=== PATIENT | male | born 1945 | race Caucasian/White ===

== ENCOUNTER → 2017-04-16 | Outpatient (CLI) | payer OTHER ==
[~2017-04-16] MED LIST: ALLO300T2 PO; AMLO10TA2 PO; CALC1TAB42 PO; CHLO4TAB2 PO; CINN500C PO; D-MAPOW8 PO; DIOV160T9 PO; DOCU100C15 PO; GABA300C5 PO; METO50TA PO; MULT-65 PO; OMEG100010 PO; OXYB5TAB8 PO; SENN8.6T81 PO; VITA400C28 PO; VITATAB11 PO; ZINC100T3 PO; [UNRECOGNIZED DRUG - CODE] PO; [UNRECOGNIZED DRUG - CODE] PO; [UNRECOGNIZED DRUG - CODE] RECTAL
--- NOTE | 2017-04-16 18:16 | RADRPT ---
EXAM DATE/TIME: 04/16/2017 16:38 [place] COMPARISON: No previous studies available for comparison. INDICATIONS : Left wrist pain. No injury. Known MRI Precautions: Sedation utilized? No Anesthesia present? No MRI reaction? No If Yes, explain: MEDICAL HISTORY : Hypertension. Paraplegia. SURGICAL HISTORY : Hemorrhoidectomy. Cholecystectomy. Hernia. Knee repair. Left trigger finger. Tsai rods. ENCOUNTER: Initial ACUITY: 1 month PAIN SCORE: 2/10 LOCATION: Left wrist. TECHNIQUE: Multiplanar multisequence MRI examination of the wrist was performed without contrast. FINDINGS: There is focal change or erosion at the distal ulna. There is some mild edema in the carpal bones. Qu estionable small erosions on the surfaces of the carpal bones. Mild widening of the scapholunate inte rval. No loculated fluid collections identified in the soft tissues. CONCLUSION: Focal cystic change or erosion in the distal ulna measuring about 4 mm in diameter. There also some m ild edematous changes in the carpal bones with questionable small erosions. Consider inflammatory art hropathy. There is also a degenerative arthropathy and some widening of the scapholunate interval bettie t could be from prior trauma or chronic inflammatory arthropathy. Brijesh Martinez MD on April 16, 2017 at 18:10 Board Certified Radiologist. This report was verified electronically.
== END ==
LOC: HRAD 16:03
PROVIDERS: ATTEND Physical Medicine & Rehabilitation
DX: S69.92XA Unspecified injury of left wrist, hand and finger(s), initial encounter (principal); S63.8X2A Sprain of other part of left wrist and hand, initial encounter; X58.XXXA Exposure to other specified factors, initial encounter
CPT/HCPCS: 73221

== ENCOUNTER 2018-04-06 22:45 | Inpatient (IN) ==
[2018-04-06] MEDS ORDERED: Sodium Chlor 0.9% Inj 500 ML IV.SIG ONE (23:51)
[2018-04-06] MEDS ORDERED: Vancomycin Inj 1,000 MG in Sodium Chlor 0.9% Inj 250 ML IV.SIG ONE (23:54)
[2018-04-06] MEDS ORDERED: Piperacil/Tazo 3.375 GM Premix 50 ML IV.SIG ONE (23:54)
--- NOTE | 2018-04-07 00:22 | XR ---
EXAM DATE: 04/07/2018 12:13 AM EST AGE/SEX: 73 years / Male INDICATIONS: Shortness of breath. CLINICAL DATA: This is the patient's initial encounter. Patient reports that signs and symptoms have been present for 1 day and indicates a pain score of 0/10. MEDICAL/SURGICAL HISTORY: None. . Thoracic spine surgery. [place]PAR[place] [facility] [place] 1[place] SINGLE AP, 03/27/2018. . FINDINGS: A single AP view of the chest demonstrates the lungs to be symmetrically aerated without evidence of mass, infiltrate or effusion. The cardiomediastinal contours are unremarkable. Osseous structures a re intact. Orthopedic rods involving the thoracolumbar spine. CONCLUSION: Negative examination. Electronically signed by: José Miguel Manning MD 04/07/2018 12:20 AM EST
[2018-04-07 00:57] LABS: Activated Partial Thrombo Time 21.3 sec (23.4-31.7); INR 1.2 Ratio; Prothrombin Time 11.8 sec (9.8-11.6)
[2018-04-07 01:18] LABS: Lipase 143 U/L (73-393)
[2018-04-07 01:23] LABS: Bilirubin,Urine Negative (Negative); Clarity,Urine Cloudy (Clear); Color,Urine Amber (Yellw/Straw); Glucose,Urine (UA) Negative (Negative); Hyaline Casts,Urine 3 /lpf (0-3); Leukocyte Esterase,Urine Trace (Negative); Mucus,Urine Few /lpf (Occasional); Nitrite,Urine Negative (Negative); Squamous Epithelial Cell,Urine 1 /hpf (0-5)
[2018-04-07 01:32] LABS: Creatine Kinase 98 U/L (39-308)
[2018-04-07 02:20] LABS: Baso # (Auto) 0.1 th/mm3 (0.0-0.2); Baso % (Auto) 0.6 % (0.0-2.0); Eos # (Auto) 0.2 th/mm3 (0.0-0.4); Eos % (Auto) 0.7 % (0.0-4.0); Hematocrit 32.6 % (39.0-51.0); Hemoglobin 11.1 gm/dL (13.0-17.0); Lymph # (Auto) 2.9 th/mm3 (1.0-4.8); Lymph % (Auto) 13.9 % (9.0-44.0); Mean Corpuscular Hemoglobin 30.2 pg (27.0-34.0); Mean Corpuscular Volume 88.8 fL (80.0-100.0); Mean Platelet Volume 7.1 fL (7.0-11.0); Mono # (Auto) 2.1 th/mm3 (0.0-0.9); Mono % (Auto) 9.8 % (0.0-8.0); Neut # (Auto) 15.7 th/mm3 (1.8-7.7); Platelet Count 300 th/mm3 (150-450); Red Blood Count 3.67 mil/mm3 (4.50-5.90); Red Cell Distribution Width 15.2 % (11.6-17.2)
[2018-04-07 03:09] LABS: Platelet Estimate Normal (Normal); Platelet Morphology Normal (Normal)
[2018-04-07 04:35] LABS: Alkaline Phosphatase 81 U/L (45-117); Total Protein 8.3 g/dL (6.4-8.2)
[2018-04-07 04:44] LABS: Alanine Aminotransferase 20 U/L (12-78); Albumin 2.3 g/dL (3.4-5.0); Anion Gap 9 meq/L (5-15); Aspartate Aminotransferase 33 U/L (15-37); Blood Urea Nitrogen 23 mg/dL (7-18); Calcium 9.1 mg/dL (8.5-10.1); Carbon Dioxide 28.4 meq/L (21.0-32.0); Chloride 100 meq/L (98-107); Glomerular Filtration Rate Greater Than 89 mL/min (>89); Glucose,Random 115 mg/dL (74-106); Magnesium 1.9 mg/dL (1.5-2.5); Potassium 4.2 meq/L (3.5-5.1); Sodium 137 meq/L (136-145)
[2018-04-07] MEDS ORDERED: Bisacodyl 10 MG Supp RECTAL PRN (05:09)
[2018-04-07] MEDS ORDERED: Vancomycin Consult Pharmacy OTHER PRN (05:11)
--- NOTE | 2018-04-07 05:46 | ED ---
HPI General Chief complaint: Medical Clearance Stated complaint: states blood infection-2 wks ago Time Seen by Provider: 04/06/18 23:49 Source: patient and family Limitations: no limitations History of Present Illness HPI narrative: The patient is a 73 year old male who presents to the [facility] emergency department with a history of reportedly developing shaking chills in the mid afternoon. Patient's reports that whenever he develops shaking chills he has an infection. She reports that he just completed a course of antibiotic on Saturday with Rocephin. The patient was also recently just discharged from the hospital approximately a week ago after being diagnosed with sepsis related to a urinary tract infection, pneumonia, and a decubitus wound that appear to be infected. The patient reports that he is a paraplegic and has a neurogenic bladder. He self caths approximately 5-6 times per day. The patient is followed by Dr. Archer as an outpatient for his wound care. The patient's reports that she has been doing dressing changes on decubitus wound that has been draining more over the last 24 hours with a strong odor to the drainage. The patient reports having a cough, however he denies having any congestion. He denies having any known fevers. On review of systems otherwise, the patient denies having any new neck pain, chest pain, shortness of breath, abdominal pain, vomiting, diarrhea, urinary symptoms, or neurologic symptoms. Related Data Home Medications Medication Instructions Recorded Confirmed collagenase clostridium histo. 1 applic TOPICAL DAILY PRN 03/22/18 04/06/18 [Santyl] gabapentin 600 mg PO TID 03/22/18 04/06/18 gentamicin 1 applic TOPICAL DAILY PRN 03/22/18 04/06/18 allopurinol 300 mg PO DAILY 03/23/18 04/06/18 amlodipine 5 mg PO DAILY 03/23/18 04/06/18 ascorbic acid (vitamin C) [Vitamin 2 g PO DAILY 03/23/18 04/06/18 C] aspirin 81 mg PO DAILY 03/23/18 04/06/18 calcium carbonate-vitamin D3 1 tab PO BID 03/23/18 04/06/18 [Calcium 500 + D] chlorpheniramine maleate 2 mg PO BID PRN 03/23/18 04/06/18 cholecalciferol (vitamin D3) 400 unit PO BID 03/23/18 04/06/18 [Vitamin D3] cinnamon bark [Cinnamon] 500 mg PO DAILY 03/23/18 04/06/18 cranberry fruit concentrate 450 mg PO DAILY 03/23/18 04/06/18 [cranberry] d-mannose 500 mg PO BID 03/23/18 04/06/18 docusate sodium [Colace] 100 mg PO BID PRN 03/23/18 04/06/18 docusate sodium [Enemeez] 283 mg MI DAILY PRN 03/23/18 03/23/18 gabapentin 600 mg PO TID 03/23/18 04/06/18 lactobacillus combination no.4 3,000 mmu cells PO DAILY 03/23/18 04/06/18 [Probiotic] multivitamin 1 cap PO QAM 03/23/18 04/06/18 naproxen sodium [Aleve] 220 mg PO BID PRN 03/23/18 04/06/18 nitroglycerin 0.4 mg SUBLINGUAL Q5-15M PRN 03/23/18 04/06/18 olmesartan-hydrochlorothiazide 1 tab PO DAILY 03/23/18 04/06/18 omega [id number] oil [Fish Oil] 2,000 mg PO DAILY 03/23/18 04/06/18 oxybutynin chloride 10 mg PO BID 03/23/18 04/06/18 oxybutynin chloride 10 mg PO DAILY 03/23/18 04/06/18 sennosides [Senokot] 8.6 mg PO BID PRN 03/23/18 04/06/18 vitamin B complex 1 cap PO DAILY 03/23/18 04/06/18 zinc 50 mg PO QID 03/23/18 04/06/18 Allergies Allergy/AdvReac Type Severity Reaction Status Date / Time celecoxib Allergy Severe Hallucinati Verified 04/06/18 23:15 ons lisinopril Allergy Severe Hypotension Verified 04/06/18 23:15 Sulfa (Sulfonamide AdvReac Intermediate Diarrhea Verified 04/06/18 23:15 Antibiotics) pregabalin AdvReac Unknown Confusion Verified 04/06/18 23:15 Review of Systems ROS: all other systems reviewed are negative [facility] Medical History Medical History Gout (Acute) Urinary bladder incontinence (Acute) Hypertension (Acute) Paraplegia (Acute) Surgical History Surgical History History of hip surgery (Acute) Social History Social History Substance History: No History of Abuse Second Hand Smoke Exposure: No Smoking Status: Former smoker Tobacco Type: Cigarettes How Often Do You Have a Drink Containing Alcohol: Never Immunization History Tetanus Immunization: Unsure Exam Const General: cooperative, no acute distress and well developed Nutritional Appearance: well nourished Orientation: alert, awake and oriented x3 HENMT Head: normocephalic and atraumatic Nose: no nasal discharge and no epistaxis Mouth: moist mucous membranes Throat: posterior oropharynx normal and uvula midline Eyes Sclera: normal sclerae Pupils: PERRL Neck Neck: no meningeal signs, trachea midline and no JVD Resp Effort & Inspection: no use of accessory muscles Auscultation: clear to auscultation bilaterally Cardio Rate: regular rate Rhythm: regular rhythm Heart Sounds: no murmurs GI Inspection: non-distended Palpation: soft, no hepatosplenomegaly, no guarding, not rigid and nontender Auscultation: normal bowel sounds Back/Spine/Pelvis Back: no CVA tenderness Skin General: dry skin (warm) Wounds: wounds noted (Right gluteal decubitus ulcer noted that is surrounded by an area of erythema that measures in greatest dimension 15 x 6 cm. There is an area of necrotic tissue in the center. The wound was cultured.) Neuro General: alert, awake, oriented x3 and other (The patient has a history of paraplegia, strength is 5/5 in bilateral upper extremities.) Speech: speech normal Motor: no movement abnormalities noted Extrem General: normal to inspection (2+ pulses in all 4 extremities.), no clubbing, no cyanosis and edema (Trace pedal edema.) Laterality: bilaterally Psych Mood: congruent mood Affect: normal affect Judgment: judgment good Course Initial Documented Vital Signs Temperature 99.5 F 04/06/18 23:15 Pulse Rate 89 04/06/18 23:15 Respiratory Rate 18 04/06/18 23:15 Blood Pressure 127/77 04/06/18 23:15 Pulse Oximetry 96 04/06/18 23:15 Last Documented Vital Signs Temperature 99.5 F 04/06/18 23:15 Pulse Rate 65 04/07/18 03:14 Respiratory Rate 17 04/07/18 03:14 Blood Pressure 109/58 L 04/07/18 03:14 Pulse Oximetry 95 04/07/18 03:14 Critical Care Time Critical Care Time: Yes Total Critical Care Time: 34 Attestation: Aggregate critical care time was 34 minutes. Time to perform other separately billable procedures was not included in the critical care time. My time did not include minutes spent treating any other patients simultaneously or on activities that did not directly contribute to the patient's treatment. The services I provided to this patient were to treat and/or prevent clinically significant deterioration that could result in: Cardiovascular collapse from sepsis, versus fluid overload from crystalloid resuscitation with respiratory failure I provided critical care services requiring my management, as noted below: Chart data review, documentation time, medication orders and management, vital sign assessments/reviewing monitor data, ordering and reviewing lab tests, ordering and interpreting/reviewing x-rays and diagnostic studies, care of the patient and discussion of the patient with the admitting physicians. Medical Decision Making MDM Narrative Medical decision making narrative: During the course of the patient's emergency department visit, the patient's history, examination, and differential diagnosis were reviewed with the patient. The patient was placed on a shelter monitor with oximetry and frequent blood pressure monitoring. The patient had IV access obtained and blood work sent for analysis. Diagnostic evaluation was started regarding the patient's chills. A septic workup was started. The patient was initially provided normal saline 500 mL bolus, Zosyn and vancomycin IV. The patient's diagnostic studies are remarkable for a white count of 21, hemoglobin 11, platelets 300 with 75 neutrophils, PT 11.8, PTT 21.3, chemistries remarkable for BUN of 23, glucose 115, total protein 8.3, albumin 2.3, lactic acid 1.0, urinalysis is unremarkable. CHEST X-RAY:Shows no acute abnormality. The patient's case including history, pertinent physical examination findings, and laboratory studies were discussed with Dr. Lainez. It was agreed that the patient would be admitted to the hospitalist service. The patient's results were discussed with the patient, including the plan of care. I explained that further testing and/ or monitoring is indicated based on the patient's history, examination, and/ or laboratory findings. Therefore, I recommended admission for additional evaluation. The patient expressed understanding and was agreeable with this plan. The patient was admitted to the hospital in guarded condition and sent to a bed under the care of the [facility] service. Medical Screen Exam Complete: Yes Emergency Medical Condition: Yes Differential Diagnosis Differential Diagnosis: Pneumonia, versus UTI, versus infected decubitus ulcer, versus sepsis Medical Records Medical records reviewed: Yes I reviewed the patient's medical records. Lab Data Lab results reviewed: Yes I reviewed the patient's lab results. Result diagrams: 04/07/18 02:05 04/07/18 00:20 Lab Results 04/07/18 04/07/18 04/07/18 Range/Units 00:20 00:20 00:20 WBC (4.0-11.0) th/mm3 RBC (4.50-5.90) mil/mm3 Hgb (13.0-17.0) gm/dL Hct (39.0-51.0) % MCV (80.0-100.0) fL MCH (27.0-34.0) pg MCHC (32.0-36.0) % RDW (11.6-17.2) % Plt Count (150-450) th/mm3 MPV (7.0-11.0) fL Prelim Diff (Auto) Neut % (Auto) (16.0-70.0) % Lymph % (Auto) (9.0-44.0) % [place] % (Auto) (0.0-8.0) % Eos % (Auto) (0.0-4.0) % Baso % (Auto) (0.0-2.0) % Neut # (Auto) (1.8-7.7) th/mm3 Lymph # (Auto) (1.0-4.8) th/mm3 [place] # (Auto) (0.0-0.9) th/mm3 Eos # (Auto) (0.0-0.4) th/mm3 Baso # (Auto) (0.0-0.2) th/mm3 WBC Differential Diff Scan Differential Comment Platelet Estimate (Normal) Platelet Morphology (Normal) PT 11.8 H (9.8-11.6) sec INR 1.2 Ratio APTT 21.3 L (23.4-31.7) sec Sodium (136-145) meq/L Potassium (3.5-5.1) meq/L Chloride (98-107) meq/L Carbon Dioxide (21.0-32.0) meq/L Anion Gap (5-15) meq/L BUN (7-18) mg/dL Creatinine (0.60-1.30) mg/dL Estimated GFR (>89) mL/min Random Glucose (74-106) mg/dL Lactic Acid (0.4-2.0) mmol/L Calcium (8.5-10.1) mg/dL Magnesium (1.5-2.5) mg/dL Total Bilirubin (0.2-1.0) mg/dL AST (15-37) U/L ALT (12-78) U/L Alkaline Phosphatase (45-117) U/L Total Creatine Kinase 98 (39-308) U/L Troponin I Less than 0.02 L (0.02-0.05) ng/mL B-Natriuretic Peptide 28 (0-100) pg/mL Total Protein (6.4-8.2) g/dL Albumin (3.4-5.0) g/dL Lipase 143 (73-393) U/L Urine Color (Yellw/Straw) Urine Clarity (Clear) Urine pH (5.0-8.5) Ur Specific [place] (1.002-1.035) Urine Protein (Neg-Trace) mg/dL Urine Glucose (UA) (Negative) mg/dL Urine Ketones (Negative) mg/dL Urine Occult Blood (Negative) Urine Nitrate (Negative) Urine Bilirubin (Negative) Urine Urobilinogen (Less than 2) mg/dL Ur Leukocyte Esterase (Negative) Urine RBC (0-3) /hpf Urine WBC (0-5) /hpf Ur Squamous Epith Cells (0-5) /hpf Hyaline Casts (0-3) /lpf Urine Mucus (Occasional) /lpf Micro UA Comment Ur Microscopic Review Urine Culture Comments 04/07/18 04/07/18 04/07/18 Range/Units 00:20 00:25 01:00 WBC (4.0-11.0) th/mm3 RBC (4.50-5.90) mil/mm3 Hgb (13.0-17.0) gm/dL Hct (39.0-51.0) % MCV (80.0-100.0) fL MCH (27.0-34.0) pg MCHC (32.0-36.0) % RDW (11.6-17.2) % Plt Count (150-450) th/mm3 MPV (7.0-11.0) fL Prelim Diff (Auto) Neut % (Auto) (16.0-70.0) % Lymph % (Auto) (9.0-44.0) % [place] % (Auto) (0.0-8.0) % Eos % (Auto) (0.0-4.0) % Baso % (Auto) (0.0-2.0) % Neut # (Auto) (1.8-7.7) th/mm3 Lymph # (Auto) (1.0-4.8) th/mm3 [place] # (Auto) (0.0-0.9) th/mm3 Eos # (Auto) (0.0-0.4) th/mm3 Baso # (Auto) (0.0-0.2) th/mm3 WBC Differential Diff Scan Differential Comment Platelet Estimate (Normal) Platelet Morphology (Normal) PT (9.8-11.6) sec INR Ratio APTT (23.4-31.7) sec Sodium 137 (136-145) meq/L Potassium 4.2 (3.5-5.1) meq/L Chloride 100 (98-107) meq/L Carbon Dioxide 28.4 (21.0-32.0) meq/L Anion Gap 9 (5-15) meq/L BUN 23 H (7-18) mg/dL Creatinine 0.77 (0.60-1.30) mg/dL Estimated GFR Greater than 89 (>89) mL/min Random Glucose 115 H (74-106) mg/dL Lactic Acid 1.0 (0.4-2.0) mmol/L Calcium 9.1 (8.5-10.1) mg/dL Magnesium 1.9 (1.5-2.5) mg/dL Total Bilirubin 0.4 (0.2-1.0) mg/dL AST 33 (15-37) U/L ALT 20 (12-78) U/L Alkaline Phosphatase 81 (45-117) U/L Total Creatine Kinase (39-308) U/L Troponin I (0.02-0.05) ng/mL B-Natriuretic Peptide (0-100) pg/mL Total Protein 8.3 H (6.4-8.2) g/dL Albumin 2.3 L (3.4-5.0) g/dL Lipase (73-393) U/L Urine Color Jillian (Yellw/Straw) Urine Clarity Cloudy H (Clear) Urine pH 5.0 (5.0-8.5) Ur Specific [place] 1.020 (1.002-1.035) Urine Protein Negative (Neg-Trace) mg/dL Urine Glucose (UA) Negative (Negative) mg/dL Urine Ketones Negative (Negative) mg/dL Urine Occult Blood Negative (Negative) Urine Nitrate Negative (Negative) Urine Bilirubin Negative (Negative) Urine Urobilinogen Less than 2 (Less than 2) mg/dL Ur Leukocyte Esterase Trace H (Negative) Urine RBC 1 (0-3) /hpf Urine WBC 5 (0-5) /hpf Ur Squamous Epith Cells 1 (0-5) /hpf Hyaline Casts 3 (0-3) /lpf Urine Mucus Few H (Occasional) /lpf Micro UA Comment Cath-culture not ind Ur Microscopic Review Not Reportable Urine Culture Comments Cath-cult not ind 04/07/18 Range/Units 02:05 WBC 21.0 H (4.0-11.0) th/mm3 RBC 3.67 L (4.50-5.90) mil/mm3 Hgb 11.1 L (13.0-17.0) gm/dL Hct 32.6 L (39.0-51.0) % MCV 88.8 (80.0-100.0) fL MCH 30.2 (27.0-34.0) pg MCHC 34.0 (32.0-36.0) % RDW 15.2 (11.6-17.2) % Plt Count 300 (150-450) th/mm3 MPV 7.1 (7.0-11.0) fL Prelim Diff (Auto) Slide review pending Neut % (Auto) 75.0 H (16.0-70.0) % Lymph % (Auto) 13.9 (9.0-44.0) % [place] % (Auto) 9.8 H (0.0-8.0) % Eos % (Auto) 0.7 (0.0-4.0) % Baso % (Auto) 0.6 (0.0-2.0) % Neut # (Auto) 15.7 H (1.8-7.7) th/mm3 Lymph # (Auto) 2.9 (1.0-4.8) th/mm3 [place] # (Auto) 2.1 H (0.0-0.9) th/mm3 Eos # (Auto) 0.2 (0.0-0.4) th/mm3 Baso # (Auto) 0.1 (0.0-0.2) th/mm3 WBC Differential . Diff Scan Auto diff confirmed Differential Comment . Platelet Estimate Normal (Normal) Platelet Morphology Normal (Normal) PT (9.8-11.6) sec INR Ratio APTT (23.4-31.7) sec Sodium (136-145) meq/L Potassium (3.5-5.1) meq/L Chloride (98-107) meq/L Carbon Dioxide (21.0-32.0) meq/L Anion Gap (5-15) meq/L BUN (7-18) mg/dL Creatinine (0.60-1.30) mg/dL Estimated GFR (>89) mL/min Random Glucose (74-106) mg/dL Lactic Acid (0.4-2.0) mmol/L Calcium (8.5-10.1) mg/dL Magnesium (1.5-2.5) mg/dL Total Bilirubin (0.2-1.0) mg/dL AST (15-37) U/L ALT (12-78) U/L Alkaline Phosphatase (45-117) U/L Total Creatine Kinase (39-308) U/L Troponin I (0.02-0.05) ng/mL B-Natriuretic Peptide (0-100) pg/mL Total Protein (6.4-8.2) g/dL Albumin (3.4-5.0) g/dL Lipase (73-393) U/L Urine Color (Yellw/Straw) Urine Clarity (Clear) Urine pH (5.0-8.5) Ur Specific [place] (1.002-1.035) Urine Protein (Neg-Trace) mg/dL Urine Glucose (UA) (Negative) mg/dL Urine Ketones (Negative) mg/dL Urine Occult Blood (Negative) Urine Nitrate (Negative) Urine Bilirubin (Negative) Urine Urobilinogen (Less than 2) mg/dL Ur Leukocyte Esterase (Negative) Urine RBC (0-3) /hpf Urine WBC (0-5) /hpf Ur Squamous Epith Cells (0-5) /hpf Hyaline Casts (0-3) /lpf Urine Mucus (Occasional) /lpf Micro UA Comment Ur Microscopic Review Urine Culture Comments Imaging Data Radiologist's impression: Chest X-Ray 04/06/18 23:52 CONCLUSION: Negative examination. ECG Data Attestation: I personally reviewed and interpreted this ECG as follows: Interpretation: The patient had an EKG done on arrival that shows a sinus rhythm heart rate of 82, QRS duration 97 ms, QTC [address] segment elevation. Discharge Plan Discharge Disposition Patient Disposition: 30 Still Patient Discharge Details Diagnosis: Decubitus ulcer, infected, Failure of outpatient treatment Physicians Team ED Provider: Kelle Montoya Primary Care Provider: UNKNOWN, Attending Provider: Kelle Medina Interventions Interventions: Vital Signs Last Done: 04/07/18 03:14 Status ED Status: Admitted Patient
[2018-04-07] MEDS: Piperacil/Tazo 4.5 GM Premix 4.5 GM/100 ML BAG IV.SIG SCH ×3 (07:10→23:47)
[2018-04-07] MEDS: Morphine Inj 4 MG/ML Vial IV.PUSH PRN (08:42)
[2018-04-07] MEDS: Gabapentin 300 MG Capsule PO SCH ×3 (08:46→17:46)
[2018-04-07] MEDS: Ascorbic Acid 500 MG Tablet PO SCH (08:47)
[2018-04-07] MEDS: Sod Chloride 0.9% Inj 1,000 ML IV.CONT SCH ×2 (08:48→14:42)
[2018-04-07] MEDS: Senna/Docusate Sodium 8.6/50 MG Tablet PO SCH ×2 (08:48→23:53)
[2018-04-07] MEDS: Calcium/Vitamin D 250/125 MG Tablet PO SCH ×2 (11:20→23:48)
[2018-04-07] MEDS: Tolterodine Tartrate LA 4 MG Capsule PO SCH (11:20)
[2018-04-07] MEDS: Vitamin B Complex/Vitamin C Tablet PO SCH (11:20)
[2018-04-07] MEDS ORDERED: Collagenase Oint 30 GM Tube TOPICAL PRN (13:10)
[2018-04-07] MEDS ORDERED: Docusate Sodium 100 MG Capsule PO PRN (13:10)
--- NOTE | 2018-04-07 13:34 | P.HP ---
History of Present Illness Service: Hospitalist Primary Care Physician: UNKNOWN Chief Complaint: Infection History of Present Illness: Patient is a 73-year-old male who presents to the emergency room due to having chills which reports is typical for him when he has infection. Patient was recently hospitalized on 03/21/18 due to sepsis and was discharged on IV antibiotics. Patient is paraplegic and has neurogenic bladder. Self caths 5-6 times per day. Chronic decubitus ulcer (follows with Dr. Sheikh). Reportedly drainage from ulcer has recently become more foul-smelling. Patient's primary complaint today is pain in his left thigh from spasms. This is not new. He reports that recently his gabapentin was increased in dose to help control the spasm. He denies any chest pain or shortness of breath. No further chills. No nausea vomiting or diarrhea. He is a somewhat difficult historian. - Diagnosis (1) Decubitus ulcer, infected (2) Failure of outpatient treatment (3) Paraplegia (4) Sepsis Inpatient Certification: I certify that the inpatient services were ordered in accordance with Medicare regulations governing the order. This includes certification that hospital inpatient services are reasonable and necessary and in the case of services not specified as inpatient-only under 42 CFR 419.22(n), that they are appropriately provided as inpatient services in accordance to with the 2-midnight benchmark under 43 CFR 412.3(e) Estimated Total Length of Stay (Days): 2 Plans for Post Hospital Care: Not yet determined Review of Systems All other systems reviewed negative except as stated in HPI [facility] - History History Provided By: Patient, Medical Record - Medical History Medical History: Medical History (Last Reviewed 04/07/18 @ 13:30 by HARLEEN Phillip) Gout Urinary bladder incontinence Hypertension Paraplegia - Surgical History Surgical History: Surgical History (Last Updated 04/07/18 @ 13:30 by HARLEEN Phillip) History of back surgery History of hip surgery - Family History Family History: Family History (Last Reviewed 04/07/18 @ 13:30 by HARLEEN Phillip) Other Family history non-contributory - Social History I have reviewed the patient's Social History: Yes - Tobacco History Second Hand Smoke Exposure: No Tobacco Use In Past 30 Days: No Smoking Status: Former smoker Tobacco Type: Cigarettes - Alcohol History How Often Do You Have a Drink Containing Alcohol: Never - Substance Use History Substance History: No History of Abuse - Immunization History Tetanus Immunization: Unsure Medications and Allergies Active Medications: Active Medications Acetaminophen (Tylenol) 650 mg PO Q4H PRN PRN Reason: Temp > 100.4 Al Hydroxide/Mg Hydroxide (Milk Of Magnesia Liq) 30 ml PO Q12H PRN PRN Reason: Mild Constipation Ascorbic Acid (Vitamin C) 2,000 mg PO DAILY [facility] Last Admin: 04/07/18 08:47 Dose: 2,000 mg Aspirin (Aspirin Chew) 81 mg PO DAILY [facility] Last Admin: 04/07/18 08:47 Dose: 81 mg Bisacodyl (Dulcolax Supp) 10 mg RECTAL DAILY PRN PRN Reason: SEVERE CONSITIPATION Calcium/Vitamin D (Oscal With D 250/125 Mg) 2 tab PO BID [facility] Last Admin: 04/07/18 11:20 Dose: 2 tab Gabapentin (Neurontin) 600 mg PO TID [facility] Last Admin: 04/07/18 08:46 Dose: 600 mg Sodium Chloride (Ns Inj) 1,000 mls @ 100 mls/hr IV.CONT .Q10H [facility] Last Admin: 04/07/18 08:48 Dose: 100 mls/hr Piperacillin/Tazobactam/Dextrose (Zosyn 4.5 Gm Premix) 4.5 gm in 100 mls @ 200 mls/hr IV.SIG Q6H [facility] Last Infusion: 04/07/18 08:12 Dose: Infused Vancomycin HCl 1,500 mg/ (Sodium Chloride) 515 mls @ 250 mls/hr IV.SIG Q18H [facility] Lactulose (Lactulose Liq) 30 ml PO DAILY PRN PRN Reason: SEVERE CONSITIPATION Miscellaneous Information ([facility] Ordered Lab Info) 0 each OTHER ONCE ONE Stop: 04/09/18 05:46 Morphine Sulfate (Morphine Inj) 2 mg IV.PUSH Q4H PRN PRN Reason: PAIN 6-10 Last Admin: 04/07/18 08:42 Dose: 2 mg Multivitamins (Theragran) 1 tab PO DAILY [facility] Last Admin: 04/07/18 08:47 Dose: 1 tab Ondansetron HCl (Zofran Inj) 4 mg IV.PUSH Q6H PRN PRN Reason: NAUSEA OR VOMITING Oxybutynin Chloride (Ditropan) 10 mg PO BID [facility] Last Admin: 04/07/18 11:19 Dose: Not Given Pharmacy Profile Note (Vancomycin Consult Pharmacy) 1 each OTHER UNSCH PRN PRN Reason: Pharmacy to dose Senna/Docusate Sodium (Inés-Colace) 1 tab PO BID [facility] Last Admin: 04/07/18 08:48 Dose: 1 tab Sennosides (Senokot) 17.2 mg PO Q12H PRN PRN Reason: Moderate Constipation Sodium Chloride (Ns Flush) 2 ml IV.FLUSH BID [facility] Last Admin: 04/07/18 08:43 Dose: 2 ml Sodium Chloride (Ns Flush) 2 ml IV.FLUSH PRN PRN PRN Reason: FLUSH AFTER USING IV ACCESS Tolterodine Tartrate (Detrol La) 4 mg PO DAILY [facility] Last Admin: 04/07/18 11:20 Dose: 4 mg Vitamin B Complex/Vitamin C (Allbee C) 1 tab PO DAILY [facility] Last Admin: 04/07/18 11:20 Dose: 1 tab Vitamin D (Vitamin D3) 400 unit PO BID [facility] Last Admin: 04/07/18 08:47 Dose: 400 unit Zinc Sulfate (Zinc-220) 220 mg PO DAILY [facility] Last Admin: 04/07/18 11:20 Dose: 220 mg Allergies Allergy/AdvReac Type Severity Reaction Status Date / Time celecoxib Allergy Severe Hallucinati Verified 04/06/18 23:15 ons lisinopril Allergy Severe Hypotension Verified 04/06/18 23:15 Sulfa (Sulfonamide AdvReac Intermediate Diarrhea Verified 04/06/18 23:15 Antibiotics) pregabalin AdvReac Unknown Confusion Verified 04/06/18 23:15 Home Medications Medication Instructions Recorded Confirmed Type collagenase clostridium histo. 1 applic TOPICAL DAILY PRN 03/22/18 04/06/18 History [Santyl] gabapentin 600 mg PO TID 03/22/18 04/06/18 History gentamicin 1 applic TOPICAL DAILY PRN 03/22/18 04/06/18 History allopurinol 300 mg PO DAILY 03/23/18 04/06/18 History amlodipine 5 mg PO DAILY 03/23/18 04/06/18 History ascorbic acid (vitamin C) [Vitamin 2 g PO DAILY 03/23/18 04/06/18 History C] aspirin 81 mg PO DAILY 03/23/18 04/06/18 History calcium carbonate-vitamin D3 1 tab PO BID 03/23/18 04/06/18 History [Calcium 500 + D] chlorpheniramine maleate 2 mg PO BID PRN 03/23/18 04/06/18 History cholecalciferol (vitamin D3) 400 unit PO BID 03/23/18 04/06/18 History [Vitamin D3] cinnamon bark [Cinnamon] 500 mg PO DAILY 03/23/18 04/06/18 History cranberry fruit concentrate 450 mg PO DAILY 03/23/18 04/06/18 History [cranberry] d-mannose 500 mg PO BID 03/23/18 04/06/18 History docusate sodium [Colace] 100 mg PO BID PRN 03/23/18 04/06/18 History docusate sodium [Enemeez] 283 mg OK DAILY PRN 03/23/18 03/23/18 History gabapentin 600 mg PO TID 03/23/18 04/06/18 History lactobacillus combination no.4 3,000 mmu cells PO DAILY 03/23/18 04/06/18 History [Probiotic] multivitamin 1 cap PO QAM 03/23/18 04/06/18 History naproxen sodium [Aleve] 220 mg PO BID PRN 03/23/18 04/06/18 History nitroglycerin 0.4 mg SUBLINGUAL Q5-15M PRN 03/23/18 04/06/18 History olmesartan-hydrochlorothiazide 1 tab PO DAILY 03/23/18 04/06/18 History omega 2-mpy-cvu-fish oil [Fish Oil] 2,000 mg PO DAILY 03/23/18 04/06/18 History oxybutynin chloride 10 mg PO BID 03/23/18 04/06/18 History oxybutynin chloride 10 mg PO DAILY 03/23/18 04/06/18 History sennosides [Senokot] 8.6 mg PO BID PRN 03/23/18 04/06/18 History vitamin B complex 1 cap PO DAILY 03/23/18 04/06/18 History zinc 50 mg PO QID 03/23/18 04/06/18 History Exam Vital signs: Vital Signs 04/06/18 23:15 04/07/18 01:04 04/07/18 01:18 Temperature 99.5 F Pulse Rate 89 78 Respiratory Rate 18 Blood Pressure 127/77 Pulse Oximetry 96 96 04/07/18 03:14 04/07/18 08:00 04/07/18 12:00 Temperature 100.4 F H 100.1 F H Pulse Rate 65 65 66 Respiratory Rate 17 16 16 Blood Pressure 109/58 L 108/59 L 117/53 L Pulse Oximetry 95 94 L 93 L Intake & Output 04/06/18 04/07/18 04/07/18 18:59 06:59 18:59 Intake Total 800 / 800 100 / 100 Balance 800 / 800 100 / 100 Weight 215 kg 97.522 kg Intake: IV 800 / 800 100 / 100 Zosyn 3.375 GM Premix 50 ML @ 50 / 50 100 mls/hr IV.SIG ONCE ONE Rx#: [id number] Zosyn 4.5 GM Premix 4.5 gm In 100 / 100 100 ml @ 200 mls/hr IV.SIG Q6H KENN[facility]Y Rx#:[id number] NS Inj 500 ML @ Wide Open IV. 500 / 500 SIG BOLUS ONE Rx#:[id number] Vancomycin Inj 1,000 MG In NS 250 / 250 Inj 250 ML @ 250 mls/hr IV.SIG ONCE ONE Rx#:[id number] Narrative: GENERAL: Well-nourished, well-developed adult male in no obvious distress. SKIN: Warm and dry -assessment limited to visible areas. Right gluteal decubitus ulcer not examined. HEAD: Atraumatic. Normocephalic. CARDIOVASCULAR: Regular rate and rhythm. RESPIRATORY: No accessory muscle use. Clear to auscultation. Breath sounds equal bilaterally. GASTROINTESTINAL: Abdomen soft, non-tender, non-distended. Positive bowel sounds. MUSCULOSKELETAL: Extremities without clubbing, cyanosis, or edema. Paraplegic. NEUROLOGICAL: Awake and alert. No obvious cranial nerve deficits. Motor grossly within normal limits upper; no feeling or movement bilateral lower legs. Normal speech. PSYCHIATRIC: Appropriate mood and affect; insight and judgment good. Results - Labs CBC & Chem 7: 04/07/18 02:05 04/07/18 00:20 Labs: Laboratory Results - last 24 hr 04/07/18 04/07/18 04/07/18 00:20 00:20 00:20 WBC RBC Hgb Hct MCV MCH MCHC RDW Plt Count MPV Prelim Diff (Auto) Neut % (Auto) Lymph % (Auto) [place] % (Auto) Eos % (Auto) Baso % (Auto) Neut # (Auto) Lymph # (Auto) [place] # (Auto) Eos # (Auto) Baso # (Auto) WBC Differential Diff Scan Differential Comment Platelet Estimate Platelet Morphology PT 11.8 H INR 1.2 APTT 21.3 L Sodium Potassium Chloride Carbon Dioxide Anion Gap BUN Creatinine Estimated GFR Random Glucose Lactic Acid Calcium Magnesium Total Bilirubin AST ALT Alkaline Phosphatase Total Creatine Kinase 98 Troponin I Less than 0.02 L B-Natriuretic Peptide 28 Total Protein Albumin Lipase 143 Urine Color Urine Clarity Urine pH Ur Specific [place] Urine Protein Urine Glucose (UA) Urine Ketones Urine Occult Blood Urine Nitrate Urine Bilirubin Urine Urobilinogen Ur Leukocyte Esterase Urine RBC Urine WBC Ur Squamous Epith Cells Hyaline Casts Urine Mucus Micro UA Comment Ur Microscopic Review Urine Culture Comments 04/07/18 04/07/18 04/07/18 00:20 00:25 01:00 WBC RBC Hgb Hct MCV MCH MCHC RDW Plt Count MPV Prelim Diff (Auto) Neut % (Auto) Lymph % (Auto) [place] % (Auto) Eos % (Auto) Baso % (Auto) Neut # (Auto) Lymph # (Auto) [place] # (Auto) Eos # (Auto) Baso # (Auto) WBC Differential Diff Scan Differential Comment Platelet Estimate Platelet Morphology PT INR APTT Sodium 137 Potassium 4.2 Chloride 100 Carbon Dioxide 28.4 Anion Gap 9 BUN 23 H Creatinine 0.77 Estimated GFR Greater than 89 Random Glucose 115 H Lactic Acid 1.0 Calcium 9.1 Magnesium 1.9 Total Bilirubin 0.4 AST 33 ALT 20 Alkaline Phosphatase 81 Total Creatine Kinase Troponin I B-Natriuretic Peptide Total Protein 8.3 H Albumin 2.3 L Lipase Urine Color Jillian Urine Clarity Cloudy H Urine pH 5.0 Ur Specific [place] 1.020 Urine Protein Negative Urine Glucose (UA) Negative Urine Ketones Negative Urine Occult Blood Negative Urine Nitrate Negative Urine Bilirubin Negative Urine Urobilinogen Less than 2 Ur Leukocyte Esterase Trace H Urine RBC 1 Urine WBC 5 Ur Squamous Epith Cells 1 Hyaline Casts 3 Urine Mucus Few H Micro UA Comment Cath-culture not ind Ur Microscopic Review Not Reportable Urine Culture Comments Cath-cult not ind 04/07/18 02:05 WBC 21.0 H RBC 3.67 L Hgb 11.1 L Hct 32.6 L MCV 88.8 MCH 30.2 MCHC 34.0 RDW 15.2 Plt Count 300 MPV 7.1 Prelim Diff (Auto) Slide review pending Neut % (Auto) 75.0 H Lymph % (Auto) 13.9 [place] % (Auto) 9.8 H Eos % (Auto) 0.7 Baso % (Auto) 0.6 Neut # (Auto) 15.7 H Lymph # (Auto) 2.9 [place] # (Auto) 2.1 H Eos # (Auto) 0.2 Baso # (Auto) 0.1 WBC Differential . Diff Scan Auto diff confirmed Differential Comment . Platelet Estimate Normal Platelet Morphology Normal PT INR APTT Sodium Potassium Chloride Carbon Dioxide Anion Gap BUN Creatinine Estimated GFR Random Glucose Lactic Acid Calcium Magnesium Total Bilirubin AST ALT Alkaline Phosphatase Total Creatine Kinase Troponin I B-Natriuretic Peptide Total Protein Albumin Lipase Urine Color Urine Clarity Urine pH Ur Specific [place] Urine Protein Urine Glucose (UA) Urine Ketones Urine Occult Blood Urine Nitrate Urine Bilirubin Urine Urobilinogen Ur Leukocyte Esterase Urine RBC Urine WBC Ur Squamous Epith Cells Hyaline Casts Urine Mucus Micro UA Comment Ur Microscopic Review Urine Culture Comments - Imaging Impressions Chest X-Ray 04/06/18 23:52 CONCLUSION: Negative examination. Caprini VTE Risk Assessment Caprini VTE Risk Assessment: Moderate/High Risk (score >= 2) Caprini Risk Assessment Model: Point Value = 1 Point Value = 2 Point Value = 3 Point Value = 5 Age 41-60 Minor surgery BMI > 25 kg/m2 Swollen legs Varicose veins or History of unexplained or recurrent spontaneous Oral contraceptives or hormone replacement Sepsis (< 1 month) Serious lung disease, including pneumonia (< 1 month) Abnormal pulmonary function Acute myocardial infarction Congestive heart failure (< 1 month) History of inflammatory bowel disease Medical patient at bed rest Age 61-74 Arthroscopic surgery Major open surgery (> 45 min) Laparoscopic surgery (> 45 min) Malignancy Confined to bed (> 72 hours) Immobilizing plaster cast Central venous access Age >= 75 History of VTE Family history of VTE Factor V Leiden Prothrombin [id number] Lupus anticoagulant Anticardiolipin antibodies Elevated serum homocysteine Heparin-induced thrombocytopenia Other congenital or acquired thrombophilia Stroke (< 1 month) Elective arthroplasty Hip, pelvis, or leg fracture Acute spinal cord injury (< 1 month) Prophylaxis Regimen: Total Risk Factor Score Risk Level Prophylaxis Regimen 0-1 Low Early ambulation 2 Moderate Order ONE of the following: *Sequential Compression Device (SCD) *Heparin 5000 units SQ BID 3-4 Higher Order ONE of the following medications: *Heparin 5000 units SQ TID *Enoxaparin/Lovenox 40 mg SQ daily (WT < 150 kg, CrCl > 30 mL/min) *Enoxaparin/Lovenox 30 mg SQ daily (WT < 150 kg, CrCl > 10-29 mL/min) *Enoxaparin/Lovenox 30 mg SQ BID (WT < 150 kg, CrCl > 30 mL/min) AND/OR *Sequential Compression Device (SCD) 5 or more Highest Order ONE of the following medications: *Heparin 5000 units SQ TID (Preferred with Epidurals) *Enoxaparin/Lovenox 40 mg SQ daily (WT < 150 kg, CrCl > 30 mL/min) *Enoxaparin/Lovenox 30 mg SQ daily (WT < 150 kg, CrCl > 10-29 mL/min) *Enoxaparin/Lovenox 30 mg SQ BID (WT < 150 kg, CrCl > 30 mL/min) AND *Sequential Compression Device (SCD) Assessment and Plan - Assessment (1) Decubitus ulcer, infected Code(s): L89.90 - Pressure ulcer of unspecified site, unspecified stage; L08.9 - Local infection of the skin and subcutaneous tissue, unspecified Status: Acute (2) Failure of outpatient treatment Code(s): Z78.9 - Other specified health status Status: Acute (3) Paraplegia Code(s): G82.20 - Paraplegia, unspecified Status: Chronic (4) Sepsis Code(s): A41.9 - Sepsis, unspecified organism Status: Acute - Plan Patient is a 73-year-old male who presents to the emergency room due to having chills which reports is typical for him when he has infection. Patient was recently hospitalized on 03/21/18 due to sepsis and was discharged on IV antibiotics. Patient is paraplegic and has neurogenic bladder. Self caths 5-6 times per day. Chronic decubitus ulcer (follows with Dr. Sheikh). Reportedly drainage from ulcer has recently become more foul-smelling. Infection consider bacteremia/sepsis - WBC 21.0; T100.4; hypotensive compared to baseline. Source - pneumonia versus UTI versus ulcer infection?; failed outpatient treatment (ceftriaxone via PICC thru 04/04/18) -Continue Vanco and Zosyn started in ED -Wound and blood cultures pending; UA negative; chest x-ray negative; check pro- calcitonin Paraplegic -Exacerbation of chronic pain related to paraplegia -continue home gabapentin; also has morphine for breakthrough -Add Flexeril for left thigh spasm Neurogenic bladder -Patient self caths -Continue home medications Ditropan and Detrol. Okay for to bring Ditropan long-acting from home if desired. Chronic hypertension -Hold home medication for now; intermittently hypotensive DVT prophylaxis: Lovenox Discharge planning: To be determined (1) Decubitus ulcer, infected Qualifiers: Pressure injury stage: unspecified pressure injury stage Qualified Code(s): L89.90 - Pressure ulcer of unspecified site, unspecified stage; L08.9 - Local infection of the skin and subcutaneous tissue, unspecified
--- NOTE | 2018-04-07 15:12 | MB ---
cc: Santy Prasad MD DATE: 04/07/2018 REQUESTING PHYSICIAN: Ramonita Lainez MD REASON FOR VISIT: Decubitus wound. Failed outpatient treatment. HISTORY OF PRESENT ILLNESS: This is a 73-year-old white male who presented to the emergency department with an ischial wound and was noted to have shaking chills. The patient was supposed to follow up with the Wound Care as outpatient. He has already been following with Dr. Sheikh in the Wound Care Department for the wound that he currently has. He was also seen in the hospital during last admission and they had dressed the wound and he reportedly had a followup appointment with the clinic. He went to the clinic on Saturday and states that there was nobody in the clinic to see him. The patient has been recently treated for sepsis and UTI due to Escherichia coli. He was on IV antibiotic treatment as outpatient until 04/04/2018 when the antibiotics were completed. This was ceftriaxone IV. He reports that he has had drainage from the left ischium where he has a chronic wound and that it was foul smelling over the past couple of weeks. He was discharged from the hospital on 03/29/2018. He does self catheterization for urine. He is paraplegic. He has low-grade fever of 100.1. The wound was cultured while he was in the hospital and it grew E. coli, Proteus, and Staphylococcus aureus. This was sensitive to the ceftriaxone. The patient now has very foul-smelling drainage coming from the right ischium wound. He states that he has pain. A culture of the wound has been taken. Blood cultures have been taken. His white count is elevated at 21.0. Urinalysis revealed 5 white cells. A urine culture was not performed. The patient is awake and alert. He is watching television. Blood pressure is 117/53 currently. PAST MEDICAL HISTORY: Hypertension, gout, paraplegia, bladder incontinence, history of right hip surgery, history of back surgery. ALLERGIES: CELECOXIB, LISINOPRIL, SULFA, PREGABALIN. MEDICATIONS: Piperacillin/tazobactam, vancomycin, vitamin C, zinc, vitamin D3, Detrol-LA, Senokot, Inés-Colace, Ditropan, Theragran, morphine, Neurontin, Lactulose, Flexeril, Santyl ointment applied to the wound, aspirin, allopurinol. SOCIAL HISTORY: The patient is . No tobacco, no alcohol, no illicit drugs. FAMILY HISTORY: Noncontributory. REVIEW OF SYSTEMS: All systems have been reviewed and are negative, except for pain in the left buttock. PHYSICAL EXAMINATION: GENERAL: He is a well-developed male who is in no acute distress. He is awake and alert. VITAL SIGNS: Temperature 100.1, BP 170/53, respirations 16, heart rate 66. HEENT: The head is atraumatic. Extraocular muscles grossly intact. Pupils reactive to light. No icterus. Oropharynx mucosa moist. No visible lesions. NECK: Supple. No adenopathy. LUNGS: Decreased, clear breath sounds. HEART: Regular S1, S2, without murmurs. ABDOMEN: Obese, soft, no tenderness appreciated. Bowel sounds are diminished EXTREMITIES: Left buttock has an area of swelling with an ulceration. It is very erythematous and there is slough within the crater of the ulcer with garcia/green drainage on the dressing and very foul smell. Rest of extremities have no clubbing, cyanosis or edema. Muscle wasting at the lower extremities. SKIN: No diffuse rash. NEUROLOGIC: No gross focal finding. PSYCHIATRIC: Calm and cooperative. LABORATORY DATA: WBC 21.0 with 75% neutrophils, 15% lymphocytes, 9% monocytes, hemoglobin 11.1. Creatinine 0.77, estimated GFR greater than 89. Liver function test normal. Sodium 139. IMPRESSION: 1. Decubitus wound infection of the left ischium. 2. Fever and leukocytosis secondary to infection. 3. Paraplegia. The patient has had chronic wound infection of the ischium. He has been followed by Wound Care Department but apparently has not been able to follow up lately since discharge from the hospital on 03/29/2018. He obviously has significant infection at the ischium and very likely will need debridement along with antibiotics. RECOMMENDATIONS: 1. Continue piperacillin/tazobactam. 2. Continue vancomycin. 3. Follow the wound culture. 4. Monitor blood culture. 5. Antibiotic adjustment depending on culture results. 6. Monitor white blood cell count. Thank you for this consultation. I will monitor the patient's progress along with you and will make further recommendations upon followup is necessary. He may also need some form of radiographic study to determine extent of the infection and whether it is involving the bone. MD EVELYN Davenport/es , 02:18 PM , 02:34 PM
[2018-04-07] MEDS ORDERED: Sodium Hypochlorite 0.125% Top Soln 500 ML Bottle IRRIGATION PRN (16:00)
[2018-04-07] MEDS: Vancomycin Inj 1,500 MG in Sodium Chlor 0.9% Inj 500 ML IV.SIG SCH (17:46)
--- NOTE | 2018-04-07 17:58 | P.PNWCN ---
Wound Care Nurse Consult Description: Received pressure ulcer consult for sacral area from Doctor Ftaou. Communicated with: [facility] F pod, Enid CANSECO and Doctor Gila Recommendation: 1.Pack wound loosely with Dakin's 0.125% soaked gauze and leave in place for 10 minutes and remove packing. 2. Cleanse wound with normal saline before Applying Santyl to wound bed molina thickness. 3. Loosely pack wound with Dakin's 0.125% moistened gauze to wound bed 4. Cover with Maxorb II cut to fit the shape of the wound and apply over packed moistened gauze 5.Then secured with a bordered gauze. Change dressing daily. Please apply Cavilon skin barrier film to intact skin before applying adhesive dressing. 6. Turn patient every 2 hours from L side to R side limiting time spent on back to P.T. and meals 7. Place patient on low airloss K4 bed when it arrives. 8. Do not use cotton pads on low airloss bed, use ultra sorb pads only. 9 Elmer R heel DTI with Cavilon skin barrier film and leave open to air. Wound/Pressure Injury - Wound Right Ischium Wound Staging: Stage IV Wound Type: Pressure Injury Is This a Chronic Wound: No Requested from Provider a Wound Care Consult: Yes (Wound care inpatient saw patient today) Length (cm): 3 Width (cm): 5 Depth (cm): 4.8 Wound Bed Appearance: Tunneling/Undermining (undermining is noted from 10 to 1 o 'clock deepest at 1 o'clock measuring 5cm) Wound Bed Appearance: Wound bed is not entirely visible due to coverage of necrotic tissue. Wound bed that is visible is noted with 100% moist russ necrotic tissue.Wound has an approximate depth of 4.8cm, bone is not visible, but is palpated. Surrounding Tissue Appearance: Erythema, Indurated Surrounding Tissue Temperature: Warm Drainage Description: Mims/ Sero-sanguinouis Drainage Amount: Moderate Drainage Odor: Foul Odor Dressing Status: Changed Cleansing Solution: Saline Wound Packing Type: Alginate (Maxorb extra AG) Cover Dressing: Bordered gauze Wound Dressing Change Date: 04/07/18 Wound Margin Description: Wound margins are unattached and noted with maceration from 7 to 2 o'clock Right Heel Wound Staging: DTI Wound Assessment: Ongoing Wound Type: Pressure Injury Is This a Chronic Wound: No Requested from Provider a Wound Care Consult: Yes Length (cm): 1 Width (cm): 1.3 Depth (cm): 0 Wound Bed Appearance: Wound presents with dry intact deflated red deflated bulla that is healing Surrounding Tissue Appearance: Blanched/Dull Surrounding Tissue Temperature: Cool Drainage Amount: None Drainage Odor: No Odor Dressing Status: Open to Air Cleansing Solution: Cavilon skin barrier film - Additional Information Patient seen on Fpod in CDU for evaluation of pressure ulcer to sacral area. Observed patient laying on back on regular [facility] bed surface.Patient is a paraplegic and Legs are Bent at the knee and externally rotated. Patient was seen on previous admission by [facility] wound care for R ischial wound and R heel DTI. Patient was also being followed outpatient by Doctor Sheikh. Patient was turned with the assistance of [facility] wound center to reveal Dry cover dressing in place to R ischial area that is saturated. Removed dressing in place to reveal open necrotic, foul smelling wound.Wound bed is not entirely visible due to coverage of moist garcia necrotic tissue that is thick, covering half the wound, Wound bed that is visible is also noted with garcia moist necrotic tissue. Wound depth is ~4.8 cm, with undermining from 10 to 1 o'clock measuring 5 cm. Bone is not visible but is palpated, indicating wound is stage IV pressure injury. Periwound presents with erythema, and induration that is circumferential. Wound margins are well defined and unattached with maceration between 7 and 2 o'clock .Wound was cleansed with normal saline and patted dry gentle. [facility] packed wound loosely with Maxorb extra AG. Then applied cavilon skin barrier film to periwound before applying bordered gauze. R heel DTI has improved and appears to be healing. Now a red deflated bulla that dry, and non draining. Cavilon skin barrier film was applied and DTI was left open to air. RN to position patient off bottom when pillows arrive.Full description, wound measurements and recommendations are noted above.
--- NOTE | 2018-04-07 20:14 | ECG ---
Date Performed: 04/07/2018 Time Performed: 00:17:01 PTAGE: 73 years EKG: Sinus rhythm NORMAL ECG PREVIOUS TRACING : 03/21/2018 22.34 Since the previous tracing, no significant change noted DOCTOR: Anh Almonte Interpretating Date/Time 04/07/2018 20:04:15
--- NOTE | 2018-04-07 20:14 | ECG ---
Date Performed: 04/07/2018 Time Performed: 05:33:31 PTAGE: 73 years EKG: Sinus rhythm NORMAL ECG PREVIOUS TRACING :04/07/2018 @12.17 Since the previous tracing, no significant change noted DOCTOR: Anh Almonte Interpretating Date/Time 04/07/2018 20:04:33
--- NOTE | 2018-04-07 23:36 | MB ---
cc: Tri Sr MD, Camille MD DATE: 04/07/2018 REQUESTING PHYSICIAN: The patient is being seen at the request of Ramonita Lainez MD. CHIEF COMPLAINT: Right ischial decubitus ulcer. HISTORY OF PRESENT ILLNESS: The patient is a 73-year-old male with a history of trauma from which he developed paraplegia. The patient was recently discharged from the hospital after a week. He was diagnosed with sepsis related to a urinary tract infection and pneumonia and according to the history, a decubitus ulcer that appeared to be infected. The patient does have a decubitus ulcer on the right side in the area of the ischium and a consultation is requested regarding evaluation and treatment of that area. PAST MEDICAL HISTORY: The patient has a history of gout, urinary bladder incontinence, hypertension, paraplegia. PAST SURGICAL HISTORY: The patient had hip surgery. SOCIAL HISTORY: The patient is a former smoker. He does not consume alcohol. PHYSICAL EXAMINATION: GENERAL: He is lying comfortably in bed. VITAL SIGNS: His temperature is 98.9. Respirations are 18. Pulse is 70. Blood pressure is 126/60, although there is a question of him being orthostatic. His pulse oximetry is 94 on room air. HEENT: The patient's extraocular muscles are intact. His pupils are equal, round and reactive to light. NECK: Supple without masses. LUNGS: Clear. HEART: Regular rate and rhythm. SKIN: Examination of his right ischial area reveals a necrotic wound with a significant amount of skin and subcutaneous tissue. The wound does go down to the bone. There is no surrounding cellulitis at the present time. LABORATORY DATA: His white count is 21,000 with 75% neutrophils, absolute number 15,700. His hemoglobin and hematocrit are 11.10 and 32.6. His blood chemistries, he has an INR of 1.2. His BUN is 23. Glucose is 115. His albumin is 2.3 with a total protein of 8.3. IMPRESSION: The patient has a decubitus ulcer of the right ischial tuberosity. PLAN: The patient's is advised that once the patient is clinically stable, we will take him to the operating room for excisional debridement of the tissue and placement of a wound VAC. The patient's indicates that they may continue [place] where [place] during the winter to seek additional care once the wound VAC is in place. MD NATALY James/yadira , 08:42 PM , 08:49 PM
[2018-04-08] MEDS: Sod Chloride 0.9% Inj 1,000 ML IV.CONT SCH ×3 (01:14→23:02)
[2018-04-08] MEDS: Piperacil/Tazo 4.5 GM Premix 4.5 GM/100 ML BAG IV.SIG SCH ×4 (01:16→22:59)
[2018-04-08 07:50] LABS: Baso # (Auto) 0.1 th/mm3 (0.0-0.2); Baso % (Auto) 0.6 % (0.0-2.0); Eos # (Auto) 0.3 th/mm3 (0.0-0.4); Eos % (Auto) 2.3 % (0.0-4.0); Hematocrit 29.7 % (39.0-51.0); Hemoglobin 9.9 gm/dL (13.0-17.0); Lymph # (Auto) 1.5 th/mm3 (1.0-4.8); Lymph % (Auto) 11.4 % (9.0-44.0); Mean Corpuscular HGB Conc 33.2 % (32.0-36.0); Mean Corpuscular Hemoglobin 29.8 pg (27.0-34.0); Mean Corpuscular Volume 89.8 fL (80.0-100.0); Mean Platelet Volume 7.1 fL (7.0-11.0); Mono % (Auto) 7.9 % (0.0-8.0); Neut # (Auto) 10.2 th/mm3 (1.8-7.7); Neut % (Auto) 77.8 % (16.0-70.0); Platelet Count 285 th/mm3 (150-450); Red Blood Count 3.31 mil/mm3 (4.50-5.90); Red Cell Distribution Width 15.3 % (11.6-17.2); White Blood Count 13.2 th/mm3 (4.0-11.0)
[2018-04-08 08:11] LABS: Alanine Aminotransferase 15 U/L (12-78); Albumin 1.9 g/dL (3.4-5.0); Anion Gap 11 meq/L (5-15); Aspartate Aminotransferase 16 U/L (15-37); Blood Urea Nitrogen 20 mg/dL (7-18); Calcium 8.6 mg/dL (8.5-10.1); Carbon Dioxide 23.5 meq/L (21.0-32.0); Chloride 105 meq/L (98-107); Glomerular Filtration Rate Greater Than 89 mL/min (>89); Glucose,Random 73 mg/dL (74-106); Potassium 3.7 meq/L (3.5-5.1); Sodium 139 meq/L (136-145)
[2018-04-08 08:13] LABS: Alkaline Phosphatase 73 U/L (45-117); Total Protein 6.9 g/dL (6.4-8.2)
[2018-04-08] MEDS: Senna/Docusate Sodium 8.6/50 MG Tablet PO SCH ×2 (08:56→22:50)
[2018-04-08] MEDS: Calcium/Vitamin D 250/125 MG Tablet PO SCH ×2 (08:56→22:49)
[2018-04-08] MEDS: Allopurinol 300 MG Tablet PO SCH (08:56)
[2018-04-08] MEDS: Enoxaparin Inj 40 MG/0.4 ML Syringe SQ SCH (08:57)
[2018-04-08] MEDS: Ascorbic Acid 500 MG Tablet PO SCH (08:57)
[2018-04-08] MEDS: Tolterodine Tartrate LA 4 MG Capsule PO SCH (08:57)
[2018-04-08] MEDS: Vitamin B Complex/Vitamin C Tablet PO SCH (08:57)
[2018-04-08] MEDS: Gabapentin 300 MG Capsule PO SCH ×3 (09:02→17:21)
--- NOTE | 2018-04-08 11:58 | P.PNID ---
Subjective Remarks: Patient states that he feels tired. No acute distress. Afebrile. Wound culture has group D enterococcus and gram-negative nora. 73-year-old white male who presented to the emergency department with an ischial wound and was noted to have shaking chills. The patient was supposed to follow up with the Wound Care as outpatient. He has already been following with Dr. Sheikh in the Wound Care Department for the wound. The patient has been recently treated for sepsis and UTI due to Escherichia coli. He was on IV Ceftriaxone as outpatient until 04/04/2018. He reports that he has had drainage from the left ischium where he has a chronic wound and that it was foul smelling. The wound was cultured while he was in the hospital and it grew E. coli, Proteus, and Staphylococcus aureus. This was sensitive to the ceftriaxone. Past Medical History: PAST MEDICAL HISTORY: Hypertension, gout, paraplegia, bladder incontinence, history of right hip surgery, history of back surgery. Allergies/Adverse Reactions: Allergies celecoxib Allergy (Severe, Verified 04/06/18 23:15) Hallucinations lisinopril Allergy (Severe, Verified 04/06/18 23:15) Hypotension Sulfa (Sulfonamide Antibiotics) Adverse Reaction (Intermediate, Verified 23:15) Diarrhea pregabalin Adverse Reaction (Unknown, Verified 04/06/18 23:15) Confusion Objective Vital Signs 04/07/18 12:00 04/07/18 16:00 04/07/18 19:54 Temperature 100.1 F H 99.9 F H 98.9 F Pulse Rate 66 71 68 Respiratory Rate 16 17 18 Blood Pressure 117/53 L 120/60 88/43 L Pulse Oximetry 93 L 94 L 90 L 04/07/18 20:03 04/08/18 00:00 04/08/18 01:51 Temperature 98.1 F Pulse Rate 70 68 Respiratory Rate 17 19 Blood Pressure 126/60 112/53 L Pulse Oximetry 94 L 98 04/08/18 04:00 04/08/18 08:00 Temperature 98.7 F 98.2 F Pulse Rate 59 L 65 Respiratory Rate 16 16 Blood Pressure 113/53 L 133/65 Pulse Oximetry 93 L 95 Intake & Output 04/07/18 04/08/18 04/08/18 18:59 06:59 18:59 Intake Total 1560 / 1560 615 / 615 100 / 100 Output Total 950 / 950 Balance 610 / 610 615 / 615 100 / 100 Weight 99.5 kg Intake: IV 1200 / 1200 615 / 615 100 / 100 NS Inj 1,000 ML @ 100 mls/hr IV 1000 / 1000 .CONT .Q10H KENNEDY Rx#:[id number] Zosyn 4.5 GM Premix 4.5 gm In 200 / 200 100 / 100 100 / 100 100 ml @ 200 mls/hr IV.SIG Q6H KENNEDY Rx#:[id number] Vancomycin Inj 1,500 MG In NS 515 / 515 Inj 500 ML @ 250 mls/hr IV.SIG Q18H KENNEDY Rx#:[id number] Oral 360 / 360 Output: Urine 680 / 680 Urine Amount (Catheter) 270 / 270 Straight 270 / 270 Other: # Voids 2 Weight On Admission 99.5 kg 04/07/18 00:20 Blood - Peripheral Aerobic Blood Culture - Preliminary No growth in 1 day 04/07/18 00:20 Blood - Peripheral Anaerobic Blood Culture - Preliminary No growth in 1 day 04/07/18 00:30 Blood - Peripheral Aerobic Blood Culture - Preliminary No growth in 1 day 04/07/18 00:30 Blood - Peripheral Anaerobic Blood Culture - Preliminary No growth in 1 day 04/07/18 11:35 Abscess - Buttock Gram Stain - Final 04/07/18 11:35 Abscess - Buttock Wound Culture - Preliminary Group D Enterococcus gram negative rods Lab - Hematology Results 04/07/18 04/08/18 02:05 06:27 WBC 21.0 H 13.2 H RBC 3.67 L 3.31 L Hgb 11.1 L 9.9 L Hct 32.6 L 29.7 L MCV 88.8 89.8 MCH 30.2 29.8 MCHC 34.0 33.2 RDW 15.2 15.3 Plt Count 300 285 MPV 7.1 7.1 Prelim Diff (Auto) Slide review pending Neut % (Auto) 75.0 H 77.8 H Lymph % (Auto) 13.9 11.4 [place] % (Auto) 9.8 H 7.9 Eos % (Auto) 0.7 2.3 Baso % (Auto) 0.6 0.6 Neut # (Auto) 15.7 H 10.2 H Lymph # (Auto) 2.9 1.5 [place] # (Auto) 2.1 H 1.0 H Eos # (Auto) 0.2 0.3 Baso # (Auto) 0.1 0.1 WBC Differential . . Diff Scan Auto diff confirmed Differential Comment . Auto diff final Platelet Estimate Normal Platelet Morphology Normal Lab - Chemistry Results 04/07/18 04/07/18 04/07/18 00:20 00:20 00:20 Sodium 137 Potassium 4.2 Chloride 100 Carbon Dioxide 28.4 Anion Gap 9 BUN 23 H Creatinine 0.77 Estimated GFR Greater than 89 POC Glucose Random Glucose 115 H Lactic Acid Calcium 9.1 Magnesium 1.9 Total Bilirubin 0.4 AST 33 ALT 20 Alkaline Phosphatase 81 Total Creatine Kinase 98 Troponin I Less than 0.02 L B-Natriuretic Peptide 28 Total Protein 8.3 H Albumin 2.3 L Lipase 143 Procalcitonin 04/07/18 04/07/18 04/08/18 00:25 15:26 00:03 Sodium Potassium Chloride Carbon Dioxide Anion Gap BUN Creatinine Estimated GFR POC Glucose 94 Random Glucose Lactic Acid 1.0 Calcium Magnesium Total Bilirubin AST ALT Alkaline Phosphatase Total Creatine Kinase Troponin I B-Natriuretic Peptide Total Protein Albumin Lipase Procalcitonin 0.20 H 04/08/18 06:27 Sodium 139 Potassium 3.7 Chloride 105 Carbon Dioxide 23.5 Anion Gap 11 BUN 20 H Creatinine 0.72 Estimated GFR Greater than 89 POC Glucose Random Glucose 73 L Lactic Acid Calcium 8.6 Magnesium Total Bilirubin 0.5 AST 16 ALT 15 Alkaline Phosphatase 73 Total Creatine Kinase Troponin I B-Natriuretic Peptide Total Protein 6.9 D Albumin 1.9 L Lipase Procalcitonin Imaging: ITS Impressions Chest X-Ray 04/06/18 23:52 CONCLUSION: Negative examination. Physical Exam: PHYSICAL EXAMINATION: GENERAL: He is a well-developed male who is in no acute distress. He is awake and alert. HEENT: The head is atraumatic. Extraocular muscles grossly intact. Pupils reactive to light. No icterus. Oropharynx mucosa moist. No visible lesions. NECK: Supple. No adenopathy. LUNGS: Decreased, clear breath sounds. HEART: Regular S1, S2, without murmurs. ABDOMEN: Obese, soft, no tenderness appreciated. EXTREMITIES: Right buttock has an area of swelling with an ulceration. Erythema and slough within the crater of the ulcer with garcia/green drainage. SKIN: No diffuse rash. NEUROLOGIC: Paraplegic. PSYCHIATRIC: Calm and cooperative. Assessment and Plan - Plan IMPRESSION: 1. Decubitus wound infection of the right ischium. Wound culture pending. 2. Fever and leukocytosis secondary to infection. White blood cell count decreased. 3. Paraplegia. RECOMMENDATIONS: 1. Continue piperacillin/tazobactam. 2. Continue vancomycin. 3. Follow the wound culture. 4. Monitor blood culture. 5. Antibiotic adjustment depending on culture results. 6. Monitor white blood cell count.
[2018-04-08] MEDS: Vancomycin Inj 1,500 MG in Sodium Chlor 0.9% Inj 500 ML IV.SIG SCH (13:22)
--- NOTE | 2018-04-08 16:32 | P.CONREH ---
History of Present Illness Service: Physical Medicine and Rehabilitation Consult date: 04/08/18 Reason for Consult: Comprehensive rehabilitation evaluation Primary Care Provider: UNKNOWN Chief Complaint: Infection History of Present Illness: Angie Jeffrey is a 73 year old right hand dominant male well known to me from my outpatient practice who was admitted to [facility] 04/07/18 with bacteremia versus sepsis with worsening decubitus ulcer right ischium. Patient with recent hospitalization 03/21/18 through 03/29/18 with change in mental status, fever and sepsis. Found to have PNA/UTI/decubitus ulcer. Patient has been seen this hospitalization by wound care and recommendations reviewed. Plastics has consulted and surgical debridement and VAC is planned when medically cleared. Patient reports that right ischial breakdown occurred at home when he fell from bedside commode. Review of Systems other (Limtied due to confusion) Constitutional: Reports fatigue Eyes: Denies double vision Ears, Nose, Mouth, and Throat: Denies difficulty swallowing Cardiovascular: Denies chest pain Respiratory: Denies shortness of breath Gastrointestinal: Denies constipation Genitourinary: Reports other (IC q 4-6 hours) Musculoskeletal: Reports back pain, Reports other (Muscle spasm) Skin/Breast: Reports skin ulcer (As above in HPI) Neurologic: Reports sensory deficit Psychiatric: Reports confusion PMFSH - History History Provided By: Patient, Medical Record - Medical History Medical History: Medical History (Last Updated 04/13/18 @ 14:08 by Kelsi Tony MD) Gout Neurogenic bladder Neurogenic bowel Urinary bladder incontinence Hypertension Paraplegia - Surgical History Surgical History: Surgical History (Last Reviewed 04/13/18 @ 14:07 by Kelsi Tony MD) History of back surgery History of hip surgery - Family History Family History: Family History (Last Reviewed 04/12/18 @ 18:10 by Ena Hdez MD) Other Family history non-contributory - Social History I have reviewed the patient's Social History: Yes - Tobacco History Second Hand Smoke Exposure: No Tobacco Use In Past 30 Days: No Smoking Status: Former smoker Tobacco Type: Cigarettes - Alcohol History How Often Do You Have a Drink Containing Alcohol: Never - Substance Use History Substance History: No History of Abuse - Travel History Recent Travel in the [place] Within the Last 8 Weeks: No Recent Travel Out of the Country Within the Last 8 Weeks: No - Immunization History Tetanus Immunization: Unsure Medications and Allergies Active Medications: Active Medications Acetaminophen (Tylenol) 650 mg PO Q4H PRN PRN Reason: Temp > 100.4 Al Hydroxide/Mg Hydroxide (Milk Of Magnesia Liq) 30 ml PO Q12H PRN PRN Reason: Mild Constipation Allopurinol (Zyloprim) 300 mg PO DAILY [facility] Last Admin: 04/08/18 08:56 Dose: 300 mg Ascorbic Acid (Vitamin C) 2,000 mg PO DAILY [facility] Last Admin: 04/08/18 08:57 Dose: 2,000 mg Aspirin (Aspirin Chew) 81 mg PO DAILY [facility] Last Admin: 04/08/18 08:56 Dose: 81 mg Bisacodyl (Dulcolax Supp) 10 mg RECTAL DAILY PRN PRN Reason: SEVERE CONSITIPATION Calcium/Vitamin D (Oscal With D 250/125 Mg) 2 tab PO BID [facility] Last Admin: 04/08/18 08:56 Dose: 2 tab Collagenase (Santyl Oint) 1 applicatio TOPICAL DAILY PRN PRN Reason: Wound Care Cyclobenzaprine HCl (Flexeril) 5 mg PO Q8HR [facility] Last Admin: 04/08/18 15:07 Dose: Not Given Docusate Sodium (Colace) 100 mg PO BID PRN PRN Reason: Constipation Enoxaparin Sodium (Lovenox Inj) 40 mg SQ DAILY [facility] Last Admin: 04/08/18 08:57 Dose: Not Given Gabapentin (Neurontin) 600 mg PO TID [facility] Last Admin: 04/08/18 13:24 Dose: 600 mg Sodium Chloride (Ns Inj) 1,000 mls @ 100 mls/hr IV.CONT .Q10H [facility] Last Admin: 04/08/18 13:24 Dose: 100 mls/hr Piperacillin/Tazobactam/Dextrose (Zosyn 4.5 Gm Premix) 4.5 gm in 100 mls @ 200 mls/hr IV.SIG Q6H [facility] Last Infusion: 04/08/18 10:14 Dose: Infused Vancomycin HCl 1,500 mg/ (Sodium Chloride) 515 mls @ 250 mls/hr IV.SIG Q18H [facility] Last Admin: 04/08/18 13:22 Dose: 250 mls/hr Lactulose (Lactulose Liq) 30 ml PO DAILY PRN PRN Reason: SEVERE CONSITIPATION Miscellaneous Information ([facility] Ordered Lab Info) 0 each OTHER ONCE ONE Stop: 04/09/18 05:46 Morphine Sulfate (Morphine Inj) 2 mg IV.PUSH Q4H PRN PRN Reason: PAIN 6-10 Last Admin: 04/07/18 08:42 Dose: 2 mg Multivitamins (Theragran) 1 tab PO DAILY [facility] Last Admin: 04/08/18 08:57 Dose: 1 tab Ondansetron HCl (Zofran Inj) 4 mg IV.PUSH Q6H PRN PRN Reason: NAUSEA OR VOMITING Oxybutynin Chloride (Ditropan) 10 mg PO BID [facility] Last Admin: 04/08/18 08:56 Dose: 10 mg Pharmacy Profile Note (Vancomycin Consult Pharmacy) 1 each OTHER UNSCH PRN PRN Reason: Pharmacy to dose Senna/Docusate Sodium (Inés-Colace) 1 tab PO BID [facility] Last Admin: 04/08/18 08:56 Dose: 1 tab Sennosides (Senokot) 17.2 mg PO Q12H PRN PRN Reason: Moderate Constipation Sodium Chloride (Ns Flush) 2 ml IV.FLUSH BID [facility] Last Admin: 04/08/18 10:11 Dose: Not Given Sodium Chloride (Ns Flush) 2 ml IV.FLUSH PRN PRN PRN Reason: FLUSH AFTER USING IV ACCESS Sodium Hypochlorite (Dakin's 0.125% Top Soln) 500 ml IRRIGATION ONCE PRN PRN Reason: WOUND CARE Tolterodine Tartrate (Detrol La) 4 mg PO DAILY [facility] Last Admin: 04/08/18 08:57 Dose: 4 mg Vitamin B Complex/Vitamin C (Allbee C) 1 tab PO DAILY [facility] Last Admin: 04/08/18 08:57 Dose: 1 tab Vitamin D (Vitamin D3) 400 unit PO BID [facility] Last Admin: 04/08/18 08:57 Dose: 400 unit Zinc Sulfate (Zinc-220) 220 mg PO DAILY [facility] Last Admin: 04/08/18 08:56 Dose: 220 mg Allergies Allergy/AdvReac Type Severity Reaction Status Date / Time celecoxib Allergy Severe Hallucinati Verified 04/06/18 23:15 ons lisinopril Allergy Severe Hypotension Verified 04/06/18 23:15 Sulfa (Sulfonamide AdvReac Intermediate Diarrhea Verified 04/06/18 23:15 Antibiotics) pregabalin AdvReac Unknown Confusion Verified 04/06/18 23:15 Home Medications Medication Instructions Recorded Confirmed Type collagenase clostridium histo. 1 applic TOPICAL DAILY PRN 03/22/18 04/06/18 History [Santyl] gabapentin 600 mg PO TID 03/22/18 04/06/18 History gentamicin 1 applic TOPICAL DAILY PRN 03/22/18 04/06/18 History allopurinol 300 mg PO DAILY 03/23/18 04/06/18 History amlodipine 5 mg PO DAILY 03/23/18 04/06/18 History ascorbic acid (vitamin C) [Vitamin 2 g PO DAILY 03/23/18 04/06/18 History C] aspirin 81 mg PO DAILY 03/23/18 04/06/18 History calcium carbonate-vitamin D3 1 tab PO BID 03/23/18 04/06/18 History [Calcium 500 + D] chlorpheniramine maleate 2 mg PO BID PRN 03/23/18 04/06/18 History cholecalciferol (vitamin D3) 400 unit PO BID 03/23/18 04/06/18 History [Vitamin D3] cinnamon bark [Cinnamon] 500 mg PO DAILY 03/23/18 04/06/18 History cranberry fruit concentrate 450 mg PO DAILY 03/23/18 04/06/18 History [cranberry] d-mannose 500 mg PO BID 03/23/18 04/06/18 History docusate sodium [Colace] 100 mg PO BID PRN 03/23/18 04/06/18 History docusate sodium [Enemeez] 283 mg UT DAILY PRN 03/23/18 03/23/18 History gabapentin 600 mg PO TID 03/23/18 04/06/18 History lactobacillus combination no.4 3,000 mmu cells PO DAILY 03/23/18 04/06/18 History [Probiotic] multivitamin 1 cap PO QAM 03/23/18 04/06/18 History naproxen sodium [Aleve] 220 mg PO BID PRN 03/23/18 04/06/18 History nitroglycerin 0.4 mg SUBLINGUAL Q5-15M PRN 03/23/18 04/06/18 History olmesartan-hydrochlorothiazide 1 tab PO DAILY 03/23/18 04/06/18 History omega 0-tcb-bcr-fish oil [Fish Oil] 2,000 mg PO DAILY 03/23/18 04/06/18 History oxybutynin chloride 10 mg PO BID 03/23/18 04/06/18 History oxybutynin chloride 10 mg PO DAILY 03/23/18 04/06/18 History sennosides [Senokot] 8.6 mg PO BID PRN 03/23/18 04/06/18 History vitamin B complex 1 cap PO DAILY 03/23/18 04/06/18 History zinc 50 mg PO QID 03/23/18 04/06/18 History Exam - Physical Examination Vital Signs / I&O: Vital Signs 04/07/18 19:54 04/07/18 20:03 04/08/18 00:00 Temperature 98.9 F 98.1 F Pulse Rate 68 70 68 Respiratory Rate 18 17 Blood Pressure 88/43 L 126/60 112/53 L Pulse Oximetry 90 L 94 L 98 04/08/18 01:51 04/08/18 04:00 04/08/18 08:00 Temperature 98.7 F 98.2 F Pulse Rate 59 L 65 Respiratory Rate 19 16 16 Blood Pressure 113/53 L 133/65 Pulse Oximetry 93 L 94 L 04/08/18 12:00 Temperature 99.0 F Pulse Rate 67 Respiratory Rate 16 Blood Pressure 133/61 Pulse Oximetry 93 L Intake & Output 04/07/18 04/08/18 04/08/18 18:59 06:59 18:59 Intake Total 1560 / 1560 615 / 615 1100 / 1100 Output Total 950 / 950 Balance 610 / 610 615 / 615 1100 / 1100 Weight 99.5 kg Intake: IV 1200 / 1200 615 / 615 1100 / 1100 NS Inj 1,000 ML @ 100 mls/hr IV 1000 / 1000 1000 / 1000 .CONT .Q10H [facility] Rx#:[id number] Zosyn 4.5 GM Premix 4.5 gm In 200 / 200 100 / 100 100 / 100 100 ml @ 200 mls/hr IV.SIG Q6H [facility] Rx#:[id number] Vancomycin Inj 1,500 MG In NS 515 / 515 Inj 500 ML @ 250 mls/hr IV.SIG Q18H [facility] Rx#:[id number] Oral 360 / 360 Output: Urine 680 / 680 Urine Amount (Catheter) 270 / 270 Straight 270 / 270 Other: # Voids 2 Weight On Admission 99.5 kg Intake & Output 04/06/18 04/07/18 04/08/18 04/09/18 06:59 06:59 06:59 06:59 Intake Total 800 / 800 2175 / 2175 1100 / 1100 Output Total 950 / 950 Balance 800 / 800 1225 / 1225 1100 / 1100 Weight 215 kg 99.5 kg General: Mild distress (Patient confused and appears restless) Respiratory: Lungs CTA, Non-labored respirations, BS equal (Decreased in bases bilaterally) Gastrointestinal: Positive bowel sounds, Distended (Depressible) Cardiovascular: Normal rate, Regular rhythm Psychiatric: Cooperative - Neurologic Orientation: oriented to: Self, Place, Situation, disoriented to: Time Neurologic: Pupils (PERRLA), Facial symmetry (Symmetric) Motor: Right Upper Extremity (5/5), Left Upper Extremity (5/5), Right Lower Extremity (0/5), Left Lower Extremity (0/5) Clonus: Positive Results - Labs CBC & Chem 7: 04/13/18 08:15 04/13/18 08:15 Labs: Laboratory Results - last 24 hr 04/07/18 04/08/18 04/08/18 15:26 00:03 06:27 WBC 13.2 H RBC 3.31 L Hgb 9.9 L Hct 29.7 L MCV 89.8 MCH 29.8 MCHC 33.2 RDW 15.3 Plt Count 285 MPV 7.1 Neut % (Auto) 77.8 H Lymph % (Auto) 11.4 [place] % (Auto) 7.9 Eos % (Auto) 2.3 Baso % (Auto) 0.6 Neut # (Auto) 10.2 H Lymph # (Auto) 1.5 [place] # (Auto) 1.0 H Eos # (Auto) 0.3 Baso # (Auto) 0.1 WBC Differential . Differential Comment Auto diff final Sodium Potassium Chloride Carbon Dioxide Anion Gap BUN Creatinine Estimated GFR POC Glucose 94 Random Glucose Calcium Total Bilirubin AST ALT Alkaline Phosphatase Total Protein Albumin Procalcitonin 0.20 H 04/08/18 06:27 WBC RBC Hgb Hct MCV MCH MCHC RDW Plt Count MPV Neut % (Auto) Lymph % (Auto) [place] % (Auto) Eos % (Auto) Baso % (Auto) Neut # (Auto) Lymph # (Auto) [place] # (Auto) Eos # (Auto) Baso # (Auto) WBC Differential Differential Comment Sodium 139 Potassium 3.7 Chloride 105 Carbon Dioxide 23.5 Anion Gap 11 BUN 20 H Creatinine 0.72 Estimated GFR Greater than 89 POC Glucose Random Glucose 73 L Calcium 8.6 Total Bilirubin 0.5 AST 16 ALT 15 Alkaline Phosphatase 73 Total Protein 6.9 D Albumin 1.9 L Procalcitonin Assessment and Plan (1) Decubitus ulcer, infected Status: Acute Code(s): L89.90 - Pressure ulcer of unspecified site, unspecified stage; L08.9 - Local infection of the skin and subcutaneous tissue, unspecified (2) Paraplegia Status: Chronic Code(s): G82.20 - Paraplegia, unspecified (3) Neurogenic bladder Status: Acute Code(s): N31.9 - Neuromuscular dysfunction of bladder, unspecified (4) Neurogenic bowel Status: Acute Code(s): K59.2 - Neurogenic bowel, not elsewhere classified - Plan Assessment: 1. 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 Neurogenic bowel and bladder 3. HTN Recommendations: 1. PT for LE ROM to maintain ROM for eventual mobilization 2. OT to maintain UE strength 3. Specialty bed per wound care recommendations to prevent further breakdown 4. Straight cath q 6 hours to maintain volumes <400 cc. If above 400 cc then cath q 4 hours 5. Bowel program with suppository q od if no BM 6. Turn and reposition q 2 hours and monitor skin carefully 7. Will continue to follow regarding addition rehab needs including discharge needs in conjunction with case management Thank you for this consult. (1) Decubitus ulcer, infected Qualifiers: Pressure injury stage: unspecified pressure injury stage Qualified Code(s): L89.90 - Pressure ulcer of unspecified site, unspecified stage; L08.9 - Local infection of the skin and subcutaneous tissue, unspecified
--- NOTE | 2018-04-08 16:53 | P.PN ---
Subjective Interval history: Patient is seen lying in bed. is at bedside. Reports that spasticity and left thigh pain are somewhat better today. No fever or chills. No nausea vomiting or diarrhea. No chest pain or shortness of breath. Physical Exam Vital signs: Vital Signs 04/07/18 19:54 04/07/18 20:03 04/08/18 00:00 Temperature 98.9 F 98.1 F Pulse Rate 68 70 68 Respiratory Rate 18 17 Blood Pressure 88/43 L 126/60 112/53 L Pulse Oximetry 90 L 94 L 98 04/08/18 01:51 04/08/18 04:00 04/08/18 08:00 Temperature 98.7 F 98.2 F Pulse Rate 59 L 65 Respiratory Rate 19 16 16 Blood Pressure 113/53 L 133/65 Pulse Oximetry 93 L 94 L 04/08/18 12:00 Temperature 99.0 F Pulse Rate 67 Respiratory Rate 16 Blood Pressure 133/61 Pulse Oximetry 93 L Intake & Output 04/07/18 04/08/18 04/08/18 18:59 06:59 18:59 Intake Total 1560 / 1560 615 / 615 1100 / 1100 Output Total 950 / 950 Balance 610 / 610 615 / 615 1100 / 1100 Weight 99.5 kg Intake: IV 1200 / 1200 615 / 615 1100 / 1100 NS Inj 1,000 ML @ 100 mls/hr IV 1000 / 1000 1000 / 1000 .CONT .Q10H [facility] Rx#:[id number] Zosyn 4.5 GM Premix 4.5 gm In 200 / 200 100 / 100 100 / 100 100 ml @ 200 mls/hr IV.SIG Q6H [facility] Rx#:[id number] Vancomycin Inj 1,500 MG In NS 515 / 515 Inj 500 ML @ 250 mls/hr IV.SIG Q18H [facility] Rx#:[id number] Oral 360 / 360 Output: Urine 680 / 680 Urine Amount (Catheter) 270 / 270 Straight 270 / 270 Other: # Voids 2 Weight On Admission 99.5 kg Narrative: GENERAL: Well-nourished, well-developed adult male in no obvious distress. SKIN: Warm and dry -assessment limited to visible areas. Right gluteal decubitus ulcer not examined -see wound care nurse evaluation for detail. HEAD: Atraumatic. Normocephalic. CARDIOVASCULAR: Regular rate and rhythm. RESPIRATORY: No accessory muscle use. Clear to auscultation. Breath sounds equal bilaterally. GASTROINTESTINAL: Abdomen soft, non-tender, non-distended. Positive bowel sounds. MUSCULOSKELETAL: Extremities without clubbing, cyanosis, or edema. Paraplegic. NEUROLOGICAL: Awake and alert. No obvious cranial nerve deficits. Motor grossly within normal limits upper; no feeling or movement bilateral lower legs. Normal speech. PSYCHIATRIC: Appropriate mood and affect; insight and judgment good. - Urinary Catheter Management Straight Cath placed during this visit: yes, but has since been removed by the nurse Reason for continuing: Not indwelling catheter Insertion date: 04/08/18 Insertion time: 14:55 Removal date: 04/08/18 Removal time: 14:58 Results - Labs CBC & Chem 7: 04/08/18 06:27 04/08/18 06:27 Laboratory Results - last 24 hr 04/07/18 04/08/18 04/08/18 15:26 00:03 06:27 WBC 13.2 H RBC 3.31 L Hgb 9.9 L Hct 29.7 L MCV 89.8 MCH 29.8 MCHC 33.2 RDW 15.3 Plt Count 285 MPV 7.1 Neut % (Auto) 77.8 H Lymph % (Auto) 11.4 [place] % (Auto) 7.9 Eos % (Auto) 2.3 Baso % (Auto) 0.6 Neut # (Auto) 10.2 H Lymph # (Auto) 1.5 [place] # (Auto) 1.0 H Eos # (Auto) 0.3 Baso # (Auto) 0.1 WBC Differential . Differential Comment Auto diff final Sodium Potassium Chloride Carbon Dioxide Anion Gap BUN Creatinine Estimated GFR POC Glucose 94 Random Glucose Calcium Total Bilirubin AST ALT Alkaline Phosphatase Total Protein Albumin Procalcitonin 0.20 H 04/08/18 06:27 WBC RBC Hgb Hct MCV MCH MCHC RDW Plt Count MPV Neut % (Auto) Lymph % (Auto) [place] % (Auto) Eos % (Auto) Baso % (Auto) Neut # (Auto) Lymph # (Auto) [place] # (Auto) Eos # (Auto) Baso # (Auto) WBC Differential Differential Comment Sodium 139 Potassium 3.7 Chloride 105 Carbon Dioxide 23.5 Anion Gap 11 BUN 20 H Creatinine 0.72 Estimated GFR Greater than 89 POC Glucose Random Glucose 73 L Calcium 8.6 Total Bilirubin 0.5 AST 16 ALT 15 Alkaline Phosphatase 73 Total Protein 6.9 D Albumin 1.9 L Procalcitonin Microbiology 04/07/18 00:20 Blood - Peripheral Aerobic Blood Culture - Preliminary No growth in 1 day 04/07/18 00:20 Blood - Peripheral Anaerobic Blood Culture - Preliminary No growth in 1 day 04/07/18 00:30 Blood - Peripheral Aerobic Blood Culture - Preliminary No growth in 1 day 04/07/18 00:30 Blood - Peripheral Anaerobic Blood Culture - Preliminary No growth in 1 day 04/07/18 11:35 Abscess - Buttock Gram Stain - Final 04/07/18 11:35 Abscess - Buttock Wound Culture - Preliminary Group D Enterococcus gram negative rods Assessment and Plan - Assessment (1) Decubitus ulcer, infected Code(s): L89.90 - Pressure ulcer of unspecified site, unspecified stage; L08.9 - Local infection of the skin and subcutaneous tissue, unspecified Status: Acute (2) Failure of outpatient treatment Code(s): Z78.9 - Other specified health status Status: Acute (3) Paraplegia Code(s): G82.20 - Paraplegia, unspecified Status: Chronic (4) Sepsis Code(s): A41.9 - Sepsis, unspecified organism Status: Acute - Plan Patient is a 73-year-old male who presents to the emergency room due to having chills which reports is typical for him when he has infection. Patient was recently hospitalized on 03/21/18 due to sepsis and was discharged on IV antibiotics. Patient is paraplegic and has neurogenic bladder. Self caths 5-6 times per day. Chronic decubitus ulcer (follows with Dr. Sheikh). Reportedly drainage from ulcer has recently become more foul-smelling. Infection consider bacteremia/sepsis - WBC 21.0; T100.4; hypotensive compared to baseline. Source - pneumonia versus UTI versus ulcer infection?; failed outpatient treatment (ceftriaxone via PICC thru 04/04/18) -Continue Vanco and Zosyn started in ED -Wound and blood cultures pending; UA negative; chest x-ray negative; pro- calcitonin mild elevation -Plastics consulted for decub; planned surgery on 04/09 with likely wound VAC Paraplegic -Exacerbation of chronic pain related to paraplegia -continue home gabapentin; also has morphine for breakthrough -Add Flexeril for left thigh spasm -Pt needs specialty bed per wound care recs -Appreciate assistance of rehab; consult placed Neurogenic bladder -Patient self caths -Continue home medications Ditropan and Detrol. Okay for to bring Ditropan long-acting from home if desired. Chronic hypertension -Hold home medication for now; intermittently hypotensive DVT prophylaxis: Lovenox Discharge planning: To be determined (1) Decubitus ulcer, infected Qualifiers: Pressure injury stage: unspecified pressure injury stage Qualified Code(s): L89.90 - Pressure ulcer of unspecified site, unspecified stage; L08.9 - Local infection of the skin and subcutaneous tissue, unspecified
--- NOTE | 2018-04-08 18:14 | P.PNPLA ---
Subjective Remarks: Patient with no new complaints. Objective Vital Signs: Vital Signs - 24 hr 04/07/18 19:54 04/07/18 20:03 04/08/18 00:00 Temperature 98.9 F 98.1 F Pulse Rate 68 70 68 Respiratory Rate 18 17 Blood Pressure 88/43 L 126/60 112/53 L Pulse Oximetry 90 L 94 L 98 04/08/18 01:51 04/08/18 04:00 04/08/18 08:00 Temperature 98.7 F 98.2 F Pulse Rate 59 L 65 Respiratory Rate 19 16 16 Blood Pressure 113/53 L 133/65 Pulse Oximetry 93 L 94 L 04/08/18 12:00 Temperature 99.0 F Pulse Rate 67 Respiratory Rate 16 Blood Pressure 133/61 Pulse Oximetry 93 L Intake & Output 04/06/18 04/07/18 04/08/18 04/09/18 06:59 06:59 06:59 06:59 Intake Total 800 / 800 2175 / 2175 1100 / 1100 Output Total 950 / 950 Balance 800 / 800 1225 / 1225 1100 / 1100 Weight 215 kg 99.5 kg Laboratory Results: Laboratory Results - last 24 hr 04/07/18 04/08/18 04/08/18 15:26 00:03 06:27 WBC 13.2 H RBC 3.31 L Hgb 9.9 L Hct 29.7 L MCV 89.8 MCH 29.8 MCHC 33.2 RDW 15.3 Plt Count 285 MPV 7.1 Neut % (Auto) 77.8 H Lymph % (Auto) 11.4 [place] % (Auto) 7.9 Eos % (Auto) 2.3 Baso % (Auto) 0.6 Neut # (Auto) 10.2 H Lymph # (Auto) 1.5 [place] # (Auto) 1.0 H Eos # (Auto) 0.3 Baso # (Auto) 0.1 WBC Differential . Differential Comment Auto diff final Sodium Potassium Chloride Carbon Dioxide Anion Gap BUN Creatinine Estimated GFR POC Glucose 94 Random Glucose Calcium Total Bilirubin AST ALT Alkaline Phosphatase Total Protein Albumin Procalcitonin 0.20 H 04/08/18 06:27 WBC RBC Hgb Hct MCV MCH MCHC RDW Plt Count MPV Neut % (Auto) Lymph % (Auto) [place] % (Auto) Eos % (Auto) Baso % (Auto) Neut # (Auto) Lymph # (Auto) [place] # (Auto) Eos # (Auto) Baso # (Auto) WBC Differential Differential Comment Sodium 139 Potassium 3.7 Chloride 105 Carbon Dioxide 23.5 Anion Gap 11 BUN 20 H Creatinine 0.72 Estimated GFR Greater than 89 POC Glucose Random Glucose 73 L Calcium 8.6 Total Bilirubin 0.5 AST 16 ALT 15 Alkaline Phosphatase 73 Total Protein 6.9 D Albumin 1.9 L Procalcitonin Microbiology 04/07/18 00:20 Aerobic Blood Culture - Preliminary Blood - Peripheral No growth in 1 day Anaerobic Blood Culture - Preliminary No growth in 1 day 04/07/18 00:30 Aerobic Blood Culture - Preliminary Blood - Peripheral No growth in 1 day Anaerobic Blood Culture - Preliminary No growth in 1 day 04/07/18 11:35 Gram Stain - Final Abscess - Buttock Wound Culture - Preliminary Group D Enterococcus gram negative rods Result Diagrams: 04/08/18 06:27 04/08/18 06:27 Exam Findings: Dressing in place. Assessment and Plan - Plan Impression: Right ischial decubitus ulcer. Plan: The patient is to have the ischial decubitus ulcer on the right side debrided in the OR tomorrow. I will then place a wound Vac. I discussed this with the patient who understands and accepts the risks and complications of the surgery. All questions were answered.
[2018-04-08] MEDS ORDERED: Sodium Hypochlorite 0.125% Top Soln 500 ML Bottle IRRIGATION SCH (18:45)
[2018-04-08] MEDS: Sodium Hypochlorite 0.25% Top Sol 500 ML Bottle IRRIGATION SCH (22:49)
[2018-04-09] MEDS: Piperacil/Tazo 4.5 GM Premix 4.5 GM/100 ML BAG IV.SIG SCH ×3 (03:25→15:20)
[2018-04-09] MEDS ORDERED: Pharmacy Ordered Lab Info OTHER ONE (05:45)
[2018-04-09] MEDS: Sod Chloride 0.9% Inj 1,000 ML IV.CONT SCH ×2 (07:01→16:43)
[2018-04-09] MEDS: Vitamin B Complex/Vitamin C Tablet PO SCH (09:30)
[2018-04-09] MEDS: Senna/Docusate Sodium 8.6/50 MG Tablet PO SCH ×2 (09:31→21:09)
[2018-04-09] MEDS: Enoxaparin Inj 40 MG/0.4 ML Syringe SQ SCH (09:31)
[2018-04-09] MEDS: Gabapentin 300 MG Capsule PO SCH ×3 (09:31→17:37)
[2018-04-09] MEDS: Calcium/Vitamin D 250/125 MG Tablet PO SCH ×2 (09:31→21:10)
[2018-04-09] MEDS: Tolterodine Tartrate LA 4 MG Capsule PO SCH (09:32)
[2018-04-09] MEDS: Allopurinol 300 MG Tablet PO SCH (09:32)
[2018-04-09] MEDS: Ascorbic Acid 500 MG Tablet PO SCH (09:32)
[2018-04-09] MEDS: Sodium Hypochlorite 0.25% Top Sol 500 ML Bottle IRRIGATION SCH ×2 (09:36→21:10)
[2018-04-09] MEDS ORDERED: Metoprolol Tartrate 25 MG Tablet PO SCH (09:56)
[2018-04-09] MEDS ORDERED: Chlorhexidine Gluconate 2% 1 Pack (2 Cloths) TOPICAL SCH (09:56)
[2018-04-09] MEDS ORDERED: Sodium Chlor 0.9% Inj 500 ML IV.SIG SCH (10:00)
[2018-04-09] MEDS ORDERED: ceFAZolin Inj 500 MG Vial ONE (10:11)
[2018-04-09] MEDS ORDERED: Neomycin/Polymyxin G.U. Irrigant 1 ML Ampul ONE (10:13)
--- NOTE | 2018-04-09 12:58 | P.BOP ---
- Preoperative Diagnosis (1) Decubitus ulcer, infected - Postoperative Diagnosis (1) Decubitus ulcer, infected Date of procedure: 04/09/18 Procedure: Excisional debridement of the right ischial decubitus ulcer including bone. Insertion of wound Vac. Anesthesia: GETA Surgeon: Tri Sr MD Estimated blood loss (mL): 50 Pathology: none sent Condition: stable Disposition: PACU
[2018-04-09] MEDS ORDERED: fentaNYL Citrate Inj 100 MCG/2 ML Ampul ONE (13:19)
--- NOTE | 2018-04-09 13:20 | MP ---
cc: Tri Sr MD DATE OF OPERATION: 04/09/2018 PREOPERATIVE DIAGNOSIS: Infected right ischial decubitus ulcer. POSTOPERATIVE DIAGNOSIS: Infected right ischial decubitus ulcer. PROCEDURE PERFORMED: 1. Excisional debridement of right ischial decubitus ulcer including bone. 2. Insertion of wound VAC. ANESTHESIA: General. SURGEON: Tri Sr MD INDICATIONS: This is a 73-year-old paraplegic male with a severely infected right ischial decubitus ulcer. There was foul smelling draining and the patient did come in with sepsis. FINDINGS: At the completion of the procedure, the necrotic material which included muscle, bone, subcutaneous tissue and skin were completely debrided down to good, healthy tissue. A small wound VAC was inserted with a lateral bridge. The patient was transported from the OR to the PACU in satisfactory condition, having tolerated the procedure well. MD NATALY James/nita , 01:03 PM , 01:10 PM
--- NOTE | 2018-04-09 14:30 | P.DIET ---
Nutritional Evaluation Type of nutrition evaluation: initial Nutrition consult regarding: Diet Evaluation Nutrition screening: Pressure Injury Screening comments: 04/08 MDC for wound Objective - Diagnosis bacteremia, decubitius, failed output tx - Objective Spinal Cord Impairment: Paraplegia (5-10 lbs) Weight Subtracted: 10 lbs % IBW: 166 (IBW = 132lb) Body Weight Used for Calculations: IBW Energy Needs - Lower Range (kCal/kg): 25 Energy Needs - Upper Range (kCal/kg): 30 Lower Limit kCal/kg (kCals): 1,500 Upper Limit kCal/kg (kCals): 1,800 Lower Limit Protein Factor (Grams per Kg): 1.2 Upper Limit Protein Factor (Grams per Kg): 1.5 Lower Protein Needs (Protein): 72 Upper Protein Needs (Protein): 90 Dietitian Reviewed in Medical Record: Current diet, Curent medications, Intake & Output, Labs, Medical history Diet Order: regular Oral Diet Intake Amount: Good 75-90% Wound Care Note: R ischium: stage IV, tunneling/necrotic R heel: DTI Objective Comments: PMH: HTN, paraplegia Labs: random glucose 115 73 Assessment Assessment: MDC for wound received on 04/08. Pt has been consuming 75-100% for most meals. Per wound note, pt has a stage IV, tunneling pressure ulcer on right ischium and right heel DTI. RD to recommend Fazal 1-pkt BID as PO supplement for wound healing. Pt s/p debridement of R ischial decubitus ulcer and insertion of wound vac. Continue to monitor PO and supplement intake. Labs reviewed, dietitian following. Recommendations: 1. RD to recommend Fazal 1-pkt BID as PO supplement for wound healing 2. Continue to monitor PO and supplement intake 3. Dietitian following Dietitian to Monitor: Lab values, Supplement acceptance, Intake & Output, Diet tolerance, PO Intake, Wound/skin status, Medical course
[2018-04-09] MEDS: Vancomycin Inj 1,500 MG in Sodium Chlor 0.9% Inj 500 ML IV.SIG SCH (14:33)
[2018-04-09] MEDS: Morphine Inj 4 MG/ML Vial IV.PUSH PRN (16:11)
--- NOTE | 2018-04-09 16:15 | P.PNIM ---
Subjective Interval history: Patient is seen lying quietly in bed. is at bedside. He has been switched to a specialty mattress which he reports is more comfortable. He is ready for surgery today. No new complaints or concerns. No fever or chills. No chest pain or shortness of breath. No nausea vomiting or diarrhea. Pain is currently adequately controlled with no significant spasms. Physical Exam Vital signs: Last Vital Signs Temp 97.7 F 04/09/18 15:52 Pulse 64 04/09/18 15:52 Resp 20 04/09/18 15:52 BP 127/62 04/09/18 15:52 Pulse Ox 94 L 04/09/18 15:52 Intake & Output 04/07/18 04/08/18 04/09/18 04/10/18 06:59 06:59 06:59 06:59 Intake Total 800 / 800 2175 / 2175 2815 / 2815 1200 / 1200 Output Total 950 / 950 850 / 850 Balance 800 / 800 1225 / 1225 1965 / 1965 1200 / 1200 Weight 215 kg 99.5 kg Narrative: GENERAL: Well-nourished, well-developed adult male in no obvious distress. SKIN: Warm and dry -assessment limited to visible areas. Right gluteal decubitus ulcer not examined -see wound care nurse evaluation for detail. HEAD: Atraumatic. Normocephalic. CARDIOVASCULAR: Regular rate and rhythm. RESPIRATORY: No accessory muscle use. Clear to auscultation. Breath sounds equal bilaterally. GASTROINTESTINAL: Abdomen soft, non-tender, non-distended. Positive bowel sounds. MUSCULOSKELETAL: Extremities without clubbing, cyanosis, or edema. Paraplegic. NEUROLOGICAL: Awake and alert. No obvious cranial nerve deficits. Motor grossly within normal limits upper; no feeling or movement bilateral lower legs. Normal speech. PSYCHIATRIC: Appropriate mood and affect; insight and judgment good. Urinary Catheter Management Straight: Cath placed during this visit: yes, but has since been removed by the nurse Insertion date: 04/09/18 Insertion time: 05:30 Removal date: 04/08/18 Removal time: 14:58 Results Labs CBC & Chem 7: 04/08/18 06:27 04/08/18 06:27 Labs: Microbiology 04/07/18 00:20 Blood - Peripheral Aerobic Blood Culture - Preliminary No growth in 2 days 04/07/18 00:20 Blood - Peripheral Anaerobic Blood Culture - Preliminary No growth in 2 days 04/07/18 00:30 Blood - Peripheral Aerobic Blood Culture - Preliminary No growth in 2 days 04/07/18 00:30 Blood - Peripheral Anaerobic Blood Culture - Preliminary No growth in 2 days 04/07/18 11:35 Abscess - Buttock Gram Stain - Final 04/07/18 11:35 Abscess - Buttock Wound Culture - Final Enterococcus faecalis Escherichia coli Assessment and Plan (1) Decubitus ulcer, infected: Code(s): L89.90 - Pressure ulcer of unspecified site, unspecified stage; L08.9 - Local infection of the skin and subcutaneous tissue, unspecified Status: Acute (2) Failure of outpatient treatment: Code(s): Z78.9 - Other specified health status Status: Acute (3) Paraplegia: Code(s): G82.20 - Paraplegia, unspecified Status: Chronic (4) Sepsis: Code(s): A41.9 - Sepsis, unspecified organism Status: Acute Plan Patient is a 73-year-old male who presents to the emergency room due to having chills which reports is typical for him when he has infection. Patient was recently hospitalized on 03/21/18 due to sepsis and was discharged on IV antibiotics. Patient is paraplegic and has neurogenic bladder. Self caths 5-6 times per day. Chronic decubitus ulcer (follows with Dr. Sheikh). Reportedly drainage from ulcer has recently become more foul-smelling. Infection consider bacteremia/sepsis - @admit WBC 21.0; T100.4; hypotensive compared to baseline. Source - pneumonia versus UTI versus ulcer infection? Failed outpatient treatment (ceftriaxone via PICC thru 04/04/18) -Continue Vanco and Zosyn started in ED -Wound cultures - sensitive to current ABX; no growth to date on blood cultures ; UA negative; chest x-ray negative; pro-calcitonin mild elevation -Plastics consulted for decub; planned surgery on 04/09 with likely wound VAC Paraplegic Exacerbation of chronic pain related to paraplegia -continue home gabapentin; also has morphine for breakthrough -Add Flexeril for left thigh spasm -specialty bed per wound care recs -Appreciate assistance of rehab; consult placed Neurogenic bladder -Patient self caths -Continue home medications Ditropan and Detrol. Okay for to bring Ditropan long-acting from home if desired. Chronic hypertension -Hold home medication for now; intermittently hypotensive DVT prophylaxis: Lovenox Discharge planning: To be determined Progress Note: Quality VTE Deep Vein Thrombosis/Pulmonary Embolism Present on Admission: No _ (1) Decubitus ulcer, infected Qualifiers: Pressure injury stage: unspecified pressure injury stage Qualified Code(s): L89.90 - Pressure ulcer of unspecified site, unspecified stage; L08.9 - Local infection of the skin and subcutaneous tissue, unspecified (2) Sepsis Qualifiers: Sepsis type:
--- NOTE | 2018-04-09 16:18 | P.PNID ---
Subjective Remarks: Patient is post excisional debridement of bone and decub ulcer. Indicates he has back pain. at bedside. Afebrile. Wound culture has group D enterococcus and E. coli. Drowsy post op. 73-year-old white male who presented to the emergency department with an ischial wound and was noted to have shaking chills. The patient was supposed to follow up with the Wound Care as outpatient. He has already been following with Dr. Sheikh in the Wound Care Department for the wound. The patient has been recently treated for sepsis and UTI due to Escherichia coli. He was on IV Ceftriaxone as outpatient until 04/04/2018. He reports that he has had drainage from the left ischium where he has a chronic wound and that it was foul smelling. The wound was cultured while he was in the hospital and it grew E. coli, Proteus, and Staphylococcus aureus. This was sensitive to the ceftriaxone. Past Medical History: PAST MEDICAL HISTORY: Hypertension, gout, paraplegia, bladder incontinence, history of right hip surgery, history of back surgery. Allergies/Adverse Reactions: Allergies celecoxib Allergy (Severe, Verified 04/06/18 23:15) Hallucinations lisinopril Allergy (Severe, Verified 04/06/18 23:15) Hypotension Sulfa (Sulfonamide Antibiotics) Adverse Reaction (Intermediate, Verified 23:15) Diarrhea pregabalin Adverse Reaction (Unknown, Verified 04/06/18 23:15) Confusion Objective Vital Signs 04/08/18 23:00 04/09/18 00:59 04/09/18 04:00 Temperature 99.2 F 98.5 F Pulse Rate 70 65 Respiratory Rate 19 19 18 Blood Pressure 151/68 H 122/52 L Pulse Oximetry 96 94 L 04/09/18 08:07 04/09/18 13:09 04/09/18 13:15 Temperature 97.4 F L Pulse Rate 60 79 74 Respiratory Rate 20 16 15 Blood Pressure 135/61 117/58 L 113/59 L Pulse Oximetry 97 95 95 04/09/18 13:30 04/09/18 13:45 04/09/18 14:00 Temperature Pulse Rate 64 62 58 L Respiratory Rate 17 15 15 Blood Pressure 114/55 L 114/56 L 121/61 Pulse Oximetry 96 96 99 04/09/18 14:30 04/09/18 14:45 04/09/18 15:52 Temperature 97.4 F L 97.7 F Pulse Rate 59 L 56 L 64 Respiratory Rate 17 17 20 Blood Pressure 114/54 L 109/58 L 127/62 Pulse Oximetry 99 95 94 L Intake & Output 04/08/18 04/09/18 04/09/18 18:59 06:59 18:59 Intake Total 1615 / 1615 1200 / 1200 1200 / 1200 Output Total 850 / 850 Balance 1615 / 1615 350 / 350 1200 / 1200 Intake: IV 1615 / 1615 1200 / 1200 1200 / 1200 NS Inj 1,000 ML @ 100 mls/hr IV 1000 / 1000 1000 / 1000 1000 / 1000 .CONT .Q10H [facility] Rx#:[id number] Zosyn 4.5 GM Premix 4.5 gm In 100 / 100 200 / 200 200 / 200 100 ml @ 200 mls/hr IV.SIG Q6H [facility] Rx#:[id number] Vancomycin Inj 1,500 MG In NS 515 / 515 Inj 500 ML @ 250 mls/hr IV.SIG Q18H [facility] Rx#:[id number] Output: Urine 700 / 700 Urine Amount (Catheter) 150 / 150 Straight 150 / 150 Other: Mode Setting Right Ischium Continuous Right Lower Buttocks Continuous # Voids 2 04/07/18 00:20 Blood - Peripheral Aerobic Blood Culture - Preliminary No growth in 2 days 04/07/18 00:20 Blood - Peripheral Anaerobic Blood Culture - Preliminary No growth in 2 days 04/07/18 00:30 Blood - Peripheral Aerobic Blood Culture - Preliminary No growth in 2 days 04/07/18 00:30 Blood - Peripheral Anaerobic Blood Culture - Preliminary No growth in 2 days 04/07/18 11:35 Abscess - Buttock Gram Stain - Final 04/07/18 11:35 Abscess - Buttock Wound Culture - Final Enterococcus faecalis Escherichia coli Lab - Hematology Results 04/08/18 06:27 WBC 13.2 H RBC 3.31 L Hgb 9.9 L Hct 29.7 L MCV 89.8 MCH 29.8 MCHC 33.2 RDW 15.3 Plt Count 285 MPV 7.1 Neut % (Auto) 77.8 H Lymph % (Auto) 11.4 Shelby % (Auto) 7.9 Eos % (Auto) 2.3 Baso % (Auto) 0.6 Neut # (Auto) 10.2 H Lymph # (Auto) 1.5 Shelby # (Auto) 1.0 H Eos # (Auto) 0.3 Baso # (Auto) 0.1 WBC Differential . Differential Comment Auto diff final Lab - Chemistry Results 04/07/18 04/08/18 04/08/18 15:26 00:03 06:27 Sodium 139 Potassium 3.7 Chloride 105 Carbon Dioxide 23.5 Anion Gap 11 BUN 20 H Creatinine 0.72 Estimated GFR Greater than 89 POC Glucose 94 Random Glucose 73 L Calcium 8.6 Total Bilirubin 0.5 AST 16 ALT 15 Alkaline Phosphatase 73 Total Protein 6.9 D Albumin 1.9 L Procalcitonin 0.20 H Imaging: ITS Impressions Chest X-Ray 04/06/18 23:52 CONCLUSION: Negative examination. Physical Exam: GENERAL: No acute distress. HEENT: The head is atraumatic. Extraocular muscles grossly intact. Pupils reactive to light. No icterus. Oropharynx mucosa moist. No visible lesions. NECK: Supple. No adenopathy. LUNGS: Clear breath sounds. HEART: Regular S1, S2, without murmurs. ABDOMEN: Obese, soft, no tenderness appreciated. EXTREMITIES: Wound vac at right ischial wound. SKIN: No diffuse rash. NEUROLOGIC: Paraplegic. PSYCHIATRIC: Calm and cooperative. Assessment and Plan - Plan IMPRESSION: 1. Decubitus wound infection of the right ischium. Group D enterococci and e. coli. 2. Fever and leukocytosis secondary to infection. 3. Paraplegia. RECOMMENDATIONS: 1. Stop piperacillin/tazobactam. 2. Stop vancomycin. 3. Begin Unasyn. 4. Given necrotic tissue with involvement of bone per surgery procedure, he will need to be treated for osteo. 5. Sed rate. I will be off 04/10/18 - 04/14/18. Other ID MDs covering in my absence.
--- NOTE | 2018-04-09 17:01 | P.PNREH ---
Subjective Interval history: Patient awake and alert. at bedside. Denies any chest pain or shortness of breath. Review of Systems other (As previously reviewed) Exam - Physical Examination Vital Signs / I&O: Vital Signs 04/08/18 23:00 04/09/18 00:59 04/09/18 04:00 Temperature 99.2 F 98.5 F Pulse Rate 70 65 Respiratory Rate 19 19 18 Blood Pressure 151/68 H 122/52 L Pulse Oximetry 96 94 L 04/09/18 08:07 04/09/18 13:09 04/09/18 13:15 Temperature 97.4 F L Pulse Rate 60 79 74 Respiratory Rate 20 16 15 Blood Pressure 135/61 117/58 L 113/59 L Pulse Oximetry 97 95 95 04/09/18 13:30 04/09/18 13:45 04/09/18 14:00 Temperature Pulse Rate 64 62 58 L Respiratory Rate 17 15 15 Blood Pressure 114/55 L 114/56 L 121/61 Pulse Oximetry 96 96 99 04/09/18 14:30 04/09/18 14:45 04/09/18 15:52 Temperature 97.4 F L 97.7 F Pulse Rate 59 L 56 L 64 Respiratory Rate 17 17 20 Blood Pressure 114/54 L 109/58 L 127/62 Pulse Oximetry 99 95 94 L Intake & Output 04/08/18 04/09/18 04/09/18 18:59 06:59 18:59 Intake Total 1615 / 1615 1200 / 1200 2200 / 2200 Output Total 850 / 850 Balance 1615 / 1615 350 / 350 2200 / 2200 Intake: IV 1615 / 1615 1200 / 1200 2200 / 2200 NS Inj 1,000 ML @ 100 mls/hr IV 1000 / 1000 1000 / 1000 2000 / 2000 .CONT .Q10H [facility] Rx#:[id number] Zosyn 4.5 GM Premix 4.5 gm In 100 / 100 200 / 200 200 / 200 100 ml @ 200 mls/hr IV.SIG Q6H [facility] Rx#:[id number] Vancomycin Inj 1,500 MG In NS 515 / 515 Inj 500 ML @ 250 mls/hr IV.SIG Q18H [facility] Rx#:[id number] Output: Urine 700 / 700 Urine Amount (Catheter) 150 / 150 Straight 150 / 150 Other: Mode Setting Right Ischium Continuous Right Lower Buttocks Continuous # Voids 2 Intake & Output 04/07/18 04/08/18 04/09/18 04/10/18 06:59 06:59 06:59 06:59 Intake Total 800 / 800 2175 / 2175 2815 / 2815 2200 / 2200 Output Total 950 / 950 850 / 850 Balance 800 / 800 1225 / 1225 1964 / 1964 2200 / 2200 Weight 215 kg 99.5 kg General: No acute distress, Other (Resting comfortably on specialty bed) Musculoskeletal: ROM (Within functional limits) Psychiatric: Cooperative - Neurologic Orientation: oriented to: Self, Situation Neurologic: Speech (Clear and more appropriate) Motor: Right Upper Extremity (5/5), Left Lower Extremity Objective Laboratory Results - last 24 hr 04/09/18 04/09/18 07:07 10:45 Vancomycin Trough 16.1 H Blood Type O Positive Blood Type Recheck Required Antibody Screen Negative Microbiology 04/07/18 00:20 Aerobic Blood Culture - Preliminary Blood - Peripheral No growth in 2 days Anaerobic Blood Culture - Preliminary No growth in 2 days 04/07/18 00:30 Aerobic Blood Culture - Preliminary Blood - Peripheral No growth in 2 days Anaerobic Blood Culture - Preliminary No growth in 2 days 04/07/18 11:35 Gram Stain - Final Abscess - Buttock Wound Culture - Final Enterococcus faecalis Escherichia coli Assessment and Plan (1) Decubitus ulcer, infected Status: Acute Code(s): L89.90 - Pressure ulcer of unspecified site, unspecified stage; L08.9 - Local infection of the skin and subcutaneous tissue, unspecified Qualifiers: Pressure injury stage: unspecified pressure injury stage Qualified Code(s) : L89.90 - Pressure ulcer of unspecified site, unspecified stage; L08.9 - Local infection of the skin and subcutaneous tissue, unspecified (2) Paraplegia Status: Chronic Code(s): G82.20 - Paraplegia, unspecified - Plan Assessment: 1. 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 Neurogenic bowel and bladder 3. HTN Recommendations: 1. For surgical debridement today. Will follow-up postoperatively for additional rehab recommendations 2. Maintain specialty bed 3. Continue intermittent catheterization every 6 hours to maintain volumes less than 400 cc. If volumes are greater than 400 cc change Frequency to every 4 hours 4. Continue bowel program 5. Continue to turn and reposition every 2 hours to prevent additional skin breakdown 6. Will continue to follow while hospitalized and at discharge as appropriate Discussed with medical service.
[2018-04-09] MEDS: Ampicillin/Sulbactam Inj 3 GM in Sodium Chloride 0.9% Inj 100 ML IV.SIG SCH (21:09)
[2018-04-10] MEDS: Ampicillin/Sulbactam Inj 3 GM in Sodium Chloride 0.9% Inj 100 ML IV.SIG SCH ×4 (03:01→20:47)
[2018-04-10] MEDS: Sod Chloride 0.9% Inj 1,000 ML IV.CONT SCH ×3 (03:02→23:19)
[2018-04-10] MEDS: Sodium Hypochlorite 0.25% Top Sol 500 ML Bottle IRRIGATION SCH ×2 (07:04→20:49)
[2018-04-10 07:51] LABS: Hematocrit 27.4 % (39.0-51.0); Hemoglobin 9.2 gm/dL (13.0-17.0); Mean Corpuscular HGB Conc 33.7 % (32.0-36.0); Mean Corpuscular Hemoglobin 30.1 pg (27.0-34.0); Mean Corpuscular Volume 89.4 fL (80.0-100.0); Mean Platelet Volume 6.8 fL (7.0-11.0); Platelet Count 249 th/mm3 (150-450); Red Blood Count 3.06 mil/mm3 (4.50-5.90); White Blood Count 10.8 th/mm3 (4.0-11.0)
[2018-04-10 08:08] LABS: Calcium 7.9 mg/dL (8.5-10.1); Potassium 4.3 meq/L (3.5-5.1)
[2018-04-10] MEDS: Calcium/Vitamin D 250/125 MG Tablet PO SCH ×2 (08:28→20:47)
[2018-04-10] MEDS: Ascorbic Acid 500 MG Tablet PO SCH (08:28)
[2018-04-10] MEDS: Allopurinol 300 MG Tablet PO SCH (08:29)
[2018-04-10] MEDS: Senna/Docusate Sodium 8.6/50 MG Tablet PO SCH ×2 (08:29→20:47)
[2018-04-10] MEDS: Tolterodine Tartrate LA 4 MG Capsule PO SCH (08:29)
[2018-04-10] MEDS: Vitamin B Complex/Vitamin C Tablet PO SCH (08:29)
[2018-04-10] MEDS: Enoxaparin Inj 40 MG/0.4 ML Syringe SQ SCH (08:30)
[2018-04-10] MEDS: Gabapentin 300 MG Capsule PO SCH ×3 (08:30→17:07)
--- NOTE | 2018-04-10 14:03 | P.PNIM ---
Subjective Interval history: Patient reports some shortness of breath today. He did not use his CPAP last night. He denies chest pain. Physical Exam Vital signs: Last Vital Signs Temp 97.4 F L 04/10/18 11:54 Pulse 76 04/10/18 11:54 Resp 20 04/10/18 11:54 BP 141/64 H 04/10/18 11:54 Pulse Ox 99 04/10/18 11:54 Intake & Output 04/08/18 04/09/18 04/10/18 04/11/18 06:59 06:59 06:59 06:59 Intake Total 2175 / 2175 2815 / 2815 2400 / 2400 1100 / 1100 Output Total 950 / 950 850 / 850 250 / 250 150 / 150 Balance 1225 / 1225 1965 / 1965 2150 / 2150 950 / 950 Weight 99.5 kg 104.3 kg Narrative: GENERAL: Obese male in no obvious distress. CARDIOVASCULAR: Regular rate and rhythm. RESPIRATORY: No accessory muscle use. Clear to auscultation. Breath sounds equal bilaterally. GASTROINTESTINAL: Abdomen soft, non-tender, non-distended. Positive bowel sounds. MUSCULOSKELETAL: Extremities without clubbing, cyanosis, or edema. Paraplegic. NEUROLOGICAL: Awake and alert. No obvious cranial nerve deficits. Motor grossly within normal limits upper; no feeling or movement bilateral lower legs. Normal speech. PSYCHIATRIC: Appropriate mood and affect; insight and judgment good. Urinary Catheter Management Straight: Cath placed during this visit: yes, but has since been removed by the nurse Insertion date: 04/09/18 Insertion time: 05:30 Removal date: 04/08/18 Removal time: 14:58 Results Labs CBC & Chem 7: 04/10/18 06:24 04/10/18 06:24 Labs: Microbiology 04/07/18 00:20 Blood - Peripheral Aerobic Blood Culture - Preliminary No growth in 3 days 04/07/18 00:20 Blood - Peripheral Anaerobic Blood Culture - Preliminary No growth in 3 days 04/07/18 00:30 Blood - Peripheral Aerobic Blood Culture - Preliminary No growth in 3 days 04/07/18 00:30 Blood - Peripheral Anaerobic Blood Culture - Preliminary No growth in 3 days 04/07/18 11:35 Abscess - Buttock Gram Stain - Final 04/07/18 11:35 Abscess - Buttock Wound Culture - Final Enterococcus faecalis Escherichia coli Assessment and Plan (1) Decubitus ulcer, infected: Code(s): L89.90 - Pressure ulcer of unspecified site, unspecified stage; L08.9 - Local infection of the skin and subcutaneous tissue, unspecified Status: Acute (2) Failure of outpatient treatment: Code(s): Z78.9 - Other specified health status Status: Acute (3) Paraplegia: Code(s): G82.20 - Paraplegia, unspecified Status: Chronic (4) Sepsis: Code(s): A41.9 - Sepsis, unspecified organism Status: Acute Plan 73-year-old male who presents to the emergency room due to having chills which reports is typical for him when he has infection. Patient was recently hospitalized on 03/21/18 due to sepsis and was discharged on IV antibiotics. Patient is paraplegic and has neurogenic bladder. Self caths 5- 6 times per day. Chronic decubitus ulcer (follows with Dr. Sheikh). Reportedly drainage from ulcer has recently become more foul-smelling. Decubitus wound infection of the left ischium. Group D enterococci and e. coli. -Infectious disease following. Vancomycin and Zosyn discontinued. Patient started on Unasyn. -Plastic surgery following. Patient underwent excision and debridement of right ischial decubitus and wound VAC placement. -Pain control. Per ID, plan to treat as osteo. Paraplegic Exacerbation of chronic pain related to paraplegia -continue home gabapentin; also has morphine for breakthrough -Add Flexeril for left thigh spasm -specialty bed per wound care recs -Appreciate assistance of rehab; consult placed Neurogenic bladder -Patient self caths -Continue home medications Ditropan and Detrol. Okay for to bring Ditropan long-acting from home if desired. Chronic hypertension -Resume home dose amlodipine. Continue to monitor Obstructive sleep apnea, mild shortness of breath probably related to anxiety. -Patient's brought in CPAP today. Advised him to use whenever he is sleeping. Discussed with RN. Later evaluated and symptoms resolved. DVT prophylaxis: Lovenox . Progress Note: Quality VTE Deep Vein Thrombosis/Pulmonary Embolism Present on Admission: No _ (1) Decubitus ulcer, infected Qualifiers: Pressure injury stage: unspecified pressure injury stage Qualified Code(s): L89.90 - Pressure ulcer of unspecified site, unspecified stage; L08.9 - Local infection of the skin and subcutaneous tissue, unspecified (2) Sepsis Qualifiers: Sepsis type:
--- NOTE | 2018-04-10 17:00 | P.PNPLA ---
Subjective Remarks: The patient reports some shortness of breath. Objective Vital Signs: Vital Signs - 24 hr 04/09/18 20:00 04/10/18 00:00 04/10/18 04:00 Temperature 97.6 F 97.7 F 97.6 F Pulse Rate 74 68 70 Respiratory Rate 18 18 18 Blood Pressure 110/55 L 128/60 125/70 Pulse Oximetry 96 96 95 04/10/18 08:00 04/10/18 08:33 04/10/18 11:54 Temperature 97.1 F L 97.4 F L Pulse Rate 72 76 Respiratory Rate 20 20 Blood Pressure 139/68 141/64 H Pulse Oximetry 95 92 L 99 04/10/18 16:00 Temperature 97.3 F L Pulse Rate 72 Respiratory Rate 18 Blood Pressure 142/68 H Pulse Oximetry 98 Intake & Output 04/08/18 04/09/18 04/10/18 04/11/18 06:59 06:59 06:59 06:59 Intake Total 2175 / 2175 2815 / 2815 2400 / 2400 1200 / 1200 Output Total 950 / 950 850 / 850 250 / 250 150 / 150 Balance 1225 / 1225 1965 / 1965 2150 / 2150 1050 / 1050 Weight 99.5 kg 104.3 kg Laboratory Results: Laboratory Results - last 24 hr 04/10/18 04/10/18 06:24 06:24 WBC 10.8 RBC 3.06 L Hgb 9.2 L Hct 27.4 L MCV 89.4 MCH 30.1 MCHC 33.7 RDW 15.0 Plt Count 249 MPV 6.8 L Sodium 142 Potassium 4.3 Chloride 110 H Carbon Dioxide 20.0 L Anion Gap 12 BUN 20 H Creatinine 1.85 H Estimated GFR 36 L Random Glucose 85 Calcium 7.9 L Microbiology 04/07/18 00:20 Aerobic Blood Culture - Preliminary Blood - Peripheral No growth in 3 days Anaerobic Blood Culture - Preliminary No growth in 3 days 04/07/18 00:30 Aerobic Blood Culture - Preliminary Blood - Peripheral No growth in 3 days Anaerobic Blood Culture - Preliminary No growth in 3 days Result Diagrams: 04/10/18 06:24 04/10/18 06:24 Exam Findings: The patient's lungs are clear. His heart is a regular rate and rhythm. The wound VAC is in place. Assessment and Plan - Plan Impression: The patient is progressing well postop. Plan: I discussed the patient's complaints with the nurse. She indicated that his attending is aware of his shortness of breath. The protective services social worker is also involved with the patient in regards to discharge planning. The nurse indicated that the wound VAC dressing will be changed on the floor tomorrow.
[2018-04-11] MEDS: Ampicillin/Sulbactam Inj 3 GM in Sodium Chloride 0.9% Inj 100 ML IV.SIG SCH ×2 (03:12→08:49)
[2018-04-11] MEDS: Morphine Inj 4 MG/ML Vial IV.PUSH PRN (06:46)
[2018-04-11 06:55] LABS: Hematocrit 31.4 % (39.0-51.0); Hemoglobin 10.6 gm/dL (13.0-17.0); Mean Corpuscular HGB Conc 33.6 % (32.0-36.0); Mean Corpuscular Hemoglobin 30.1 pg (27.0-34.0); Mean Corpuscular Volume 89.6 fL (80.0-100.0); Mean Platelet Volume 6.8 fL (7.0-11.0); Platelet Count 277 th/mm3 (150-450); Red Blood Count 3.51 mil/mm3 (4.50-5.90); Red Cell Distribution Width 15.7 % (11.6-17.2); White Blood Count 10.1 th/mm3 (4.0-11.0)
[2018-04-11 07:10] LABS: Calcium 8.3 mg/dL (8.5-10.1); Carbon Dioxide 26.2 meq/L (21.0-32.0); Potassium 4.3 meq/L (3.5-5.1)
[2018-04-11] MEDS: Vitamin B Complex/Vitamin C Tablet PO SCH (08:50)
[2018-04-11] MEDS: Sodium Hypochlorite 0.25% Top Sol 500 ML Bottle IRRIGATION SCH (08:51)
[2018-04-11] MEDS: Enoxaparin Inj 40 MG/0.4 ML Syringe SQ SCH ×2 (08:53→09:10)
[2018-04-11] MEDS: Gabapentin 300 MG Capsule PO SCH ×3 (08:53→20:56)
[2018-04-11] MEDS: Calcium/Vitamin D 250/125 MG Tablet PO SCH ×2 (08:54→23:34)
[2018-04-11] MEDS: amLODIPine 5 MG Tablet PO SCH (08:54)
[2018-04-11] MEDS: Ascorbic Acid 500 MG Tablet PO SCH (08:55)
[2018-04-11] MEDS: Senna/Docusate Sodium 8.6/50 MG Tablet PO SCH ×2 (08:55→23:34)
[2018-04-11] MEDS: Allopurinol 300 MG Tablet PO SCH (08:57)
[2018-04-11] MEDS: Tolterodine Tartrate LA 4 MG Capsule PO SCH (08:58)
--- NOTE | 2018-04-11 10:55 | P.PN ---
Subjective Interval history: The patient appears in not acute distress talking on the phone. No shortness of breath. No nausea or vomiting. Eating fairly well. No fever or chills. Noted with elevated creatinine, with urinary retention on bladder scan patient needs frequent urinary cath Once his home regimen for Ditropan says he has Ditropan XL and is willing to use his own medications. Physical Exam Vital signs: Vital Signs 04/10/18 11:54 04/10/18 16:00 04/11/18 04:00 Temperature 97.4 F L 97.3 F L 98.2 F Pulse Rate 76 72 67 Respiratory Rate 20 18 18 Blood Pressure 141/64 H 142/68 H 138/74 Pulse Oximetry 99 98 95 04/11/18 08:00 Temperature 97.3 F L Pulse Rate 61 Respiratory Rate 22 Blood Pressure 155/60 H Pulse Oximetry 95 Intake & Output 04/10/18 04/11/18 04/11/18 18:59 06:59 18:59 Intake Total 1200 / 1200 1200 / 1200 Output Total 150 / 150 1050 / 1050 Balance 1050 / 1050 1200 / 1200 -1050 / -1050 Weight 114.7 kg Intake: IV 1200 / 1200 1200 / 1200 NS Inj 1,000 ML @ 100 mls/hr IV 1000 / 1000 1000 / 1000 .CONT .Q10H KENNEDY Rx#:[id number] Unasyn Inj 3 GM In NS Inj 100 200 / 200 200 / 200 ML @ 200 mls/hr IV.SIG Q6H KENNEDY Rx#:[id number] Output: Urine 150 / 150 1050 / 1050 Other: Mode Setting Right Ischium Continuous Continuous # Voids 0 Narrative: GENERAL: 73 yo male, obese male appears in nad. CARDIOVASCULAR: Regular rate and rhythm. RESPIRATORY: No accessory muscle use. Clear to auscultation. Breath sounds equal bilaterally. GASTROINTESTINAL: Abdomen soft, non-tender, non-distended. Positive bowel sounds. MUSCULOSKELETAL: Extremities without clubbing, cyanosis, or edema. Paraplegic. NEUROLOGICAL: Awake and alert. No obvious cranial nerve deficits. Motor grossly within normal limits upper; no feeling or movement bilateral lower legs. Normal speech. PSYCHIATRIC: Appropriate mood and affect; insight and judgment good. - Urinary Catheter Management Straight Cath placed during this visit: yes, but has since been removed by the nurse Reason for continuing: Chronic Urinary Retention Insertion date: 04/09/18 Insertion time: 05:30 Removal date: 04/08/18 Removal time: 14:58 Results - Labs CBC & Chem 7: 04/11/18 05:51 04/11/18 05:51 Laboratory Results - last 24 hr 04/11/18 04/11/18 05:51 05:51 WBC 10.1 RBC 3.51 L Hgb 10.6 L Hct 31.4 L MCV 89.6 MCH 30.1 MCHC 33.6 RDW 15.7 Plt Count 277 MPV 6.8 L Sodium 144 Potassium 4.3 Chloride 112 H Carbon Dioxide 26.2 Anion Gap 6 BUN 25 H Creatinine 2.54 H Estimated GFR 25 L Random Glucose 92 Calcium 8.3 L Microbiology 04/07/18 00:20 Blood - Peripheral Aerobic Blood Culture - Preliminary No growth in 3 days 04/07/18 00:20 Blood - Peripheral Anaerobic Blood Culture - Preliminary No growth in 3 days 04/07/18 00:30 Blood - Peripheral Aerobic Blood Culture - Preliminary No growth in 3 days 04/07/18 00:30 Blood - Peripheral Anaerobic Blood Culture - Preliminary No growth in 3 days Assessment and Plan - Assessment (1) Decubitus ulcer, infected Code(s): L89.90 - Pressure ulcer of unspecified site, unspecified stage; L08.9 - Local infection of the skin and subcutaneous tissue, unspecified Status: Acute (2) Failure of outpatient treatment Code(s): Z78.9 - Other specified health status Status: Acute (3) Paraplegia Code(s): G82.20 - Paraplegia, unspecified Status: Chronic (4) Sepsis Code(s): A41.9 - Sepsis, unspecified organism Status: Acute - Plan 73-year-old male who presents to the emergency room due to having chills which reports is typical for him when he has infection. Patient was recently hospitalized on 03/21/18 due to sepsis and was discharged on IV antibiotics. Patient is paraplegic and has neurogenic bladder. Self caths 5- 6 times per day. Chronic decubitus ulcer (follows with Dr. Sheikh). Reportedly drainage from ulcer has recently become more foul-smelling. Decubitus wound infection of the left ischium. Group D enterococci and e. coli. -Infectious disease following. Vancomycin and Zosyn discontinued. Patient started on Unasyn. -Plastic surgery following. Patient underwent excision and debridement of right ischial decubitus and wound VAC placement. -Pain control. Per ID, plan to treat as osteo. Paraplegic Exacerbation of chronic pain related to paraplegia -continue home gabapentin; also has morphine for breakthrough -Add Flexeril for left thigh spasm -specialty bed per wound care recs -Appreciate assistance of rehab; consult placed Neurogenic bladder Urinary retention YAYA Cr to 2.5 on 04/11 -Patient self caths. However patient needs more frequent self cath as kidney function is worsening. Ordered cath q4-6 hrs -Monitor kidney function, continue IVF -Monitor UOP -Continue home medications Ditropan and Detrol. Okay for to bring Ditropan long-acting from home if desired. Chronic hypertension -Resume home dose amlodipine. Continue to monitor Obstructive sleep apnea, mild shortness of breath probably related to anxiety. -Patient's brought in CPAP today. Advised him to use whenever he is sleeping. Discussed with RN. Later evaluated and symptoms resolved. DVT prophylaxis: Lovenox Discussed with the pt, nurse, Dr Luke ID (1) Decubitus ulcer, infected Qualifiers: Pressure injury stage: unspecified pressure injury stage Qualified Code(s): L89.90 - Pressure ulcer of unspecified site, unspecified stage; L08.9 - Local infection of the skin and subcutaneous tissue, unspecified
--- NOTE | 2018-04-11 13:35 | P.PNID ---
Subjective Remarks: ID Coverage Notes reviewed C/O constipation Creatinine acutely increased since yesterday Straight cath this morning about 1200 ml - not being done regularly Temps ok Patient is post excisional debridement of bone and decub ulcer. Wound culture has group D enterococcus and E. coli. 73-year-old white male who presented to the emergency department with an ischial wound and was noted to have shaking chills. The patient was supposed to follow up with the Wound Care as outpatient. He has already been following with Dr. Sheikh in the Wound Care Department for the wound. The patient has been recently treated for sepsis and UTI due to Escherichia coli. He was on IV Ceftriaxone as outpatient until 04/04/2018. He reports that he has had drainage from the left ischium where he has a chronic wound and that it was foul smelling. The wound was cultured while he was in the hospital and it grew E. coli, Proteus, and Staphylococcus aureus. This was sensitive to the ceftriaxone. Antibiotics: Unasyn Past Medical History: PAST MEDICAL HISTORY: Hypertension, gout, paraplegia, bladder incontinence, history of right hip surgery, history of back surgery. Allergies/Adverse Reactions: Allergies celecoxib Allergy (Severe, Verified 04/06/18 23:15) Hallucinations lisinopril Allergy (Severe, Verified 04/06/18 23:15) Hypotension Sulfa (Sulfonamide Antibiotics) Adverse Reaction (Intermediate, Verified 23:15) Diarrhea pregabalin Adverse Reaction (Unknown, Verified 04/06/18 23:15) Confusion Objective Vital Signs 04/10/18 16:00 04/11/18 04:00 04/11/18 08:00 Temperature 97.3 F L 98.2 F 97.3 F L Pulse Rate 72 67 61 Respiratory Rate 18 18 22 Blood Pressure 142/68 H 138/74 155/60 H Pulse Oximetry 98 95 95 04/11/18 12:00 Temperature 97.4 F L Pulse Rate 70 Respiratory Rate 20 Blood Pressure 138/68 Pulse Oximetry 98 Intake & Output 04/10/18 04/11/18 04/11/18 18:59 06:59 18:59 Intake Total 1200 / 1200 1200 / 1200 Output Total 150 / 150 1050 / 1050 Balance 1050 / 1050 1200 / 1200 -1050 / -1050 Weight 114.7 kg Intake: IV 1200 / 1200 1200 / 1200 NS Inj 1,000 ML @ 100 mls/hr IV 1000 / 1000 1000 / 1000 .CONT .Q10H [facility]ENNEDY Rx#:[id number] Unasyn Inj 3 GM In NS Inj 100 200 / 200 200 / 200 ML @ 200 mls/hr IV.SIG Q6H KENNEDY Rx#:[id number] Output: Urine 150 / 150 1050 / 1050 Other: Mode Setting Right Ischium Continuous Continuous # Voids 0 04/07/18 00:20 Blood - Peripheral Aerobic Blood Culture - Preliminary No growth in 4 days 04/07/18 00:20 Blood - Peripheral Anaerobic Blood Culture - Preliminary No growth in 4 days 04/07/18 00:30 Blood - Peripheral Aerobic Blood Culture - Preliminary No growth in 4 days 04/07/18 00:30 Blood - Peripheral Anaerobic Blood Culture - Preliminary No growth in 4 days 04/07/18 11:35 Abscess - Buttock Gram Stain - Final 04/07/18 11:35 Abscess - Buttock Wound Culture - Final Enterococcus faecalis Escherichia coli Lab - Hematology Results 04/10/18 04/11/18 06:24 05:51 WBC 10.8 10.1 RBC 3.06 L 3.51 L Hgb 9.2 L 10.6 L Hct 27.4 L 31.4 L MCV 89.4 89.6 MCH 30.1 30.1 MCHC 33.7 33.6 RDW 15.0 15.7 Plt Count 249 277 MPV 6.8 L 6.8 L Lab - Chemistry Results 04/10/18 04/11/18 06:24 05:51 Sodium 142 144 Potassium 4.3 4.3 Chloride 110 H 112 H Carbon Dioxide 20.0 L 26.2 Anion Gap 12 6 BUN 20 H 25 H Creatinine 1.85 H 2.54 H Estimated GFR 36 L 25 L Random Glucose 85 92 Calcium 7.9 L 8.3 L Imaging: ITS Impressions Chest X-Ray 04/06/18 23:52 CONCLUSION: Negative examination. Physical Exam: GENERAL: No acute distress. Awake and alery HEENT: The head is atraumatic. Extraocular muscles grossly intact. Pupils reactive to light. No icterus. Oropharynx mucosa moist. No visible lesions. NECK: Supple. No adenopathy. LUNGS: Clear breath sounds. HEART: Regular S1, S2, without murmurs. ABDOMEN: Obese, soft, no tenderness appreciated. EXTREMITIES: Wound vac at left ischial wound. SKIN: No diffuse rash. NEUROLOGIC: Paraplegic. PSYCHIATRIC: Calm and cooperative. Assessment and Plan - Plan IMPRESSION: Decubitus wound infection of the left ischium. Group D enterococci and e. coli. Fever and leukocytosis secondary to infection. Better Paraplegia. Acute renal failure RECOMMENDATIONS: Decreased Unasyn dose Check UA and microscopy Check urine eos - may need to change Abx if (+) Will order straight cath every 6 hours Monitor progress Explained plan to patient and D/W BEST
--- NOTE | 2018-04-11 13:57 | US ---
EXAM DATE: 04/11/2018 1:53 PM EST AGE/SEX: 73 years / Male INDICATIONS: Increased BUN/Creatinine. CLINICAL DATA: This is the patient's initial encounter. Patient reports that signs and symptoms have been present for 1 day and indicates a pain score of 0/10. MEDICAL/SURGICAL HISTORY: Hypertension. Paraplegia. Gout. Urinary incontinence. Sepsis. Neuroge dheeraj bladder. Chronic decubitus ulcer. . Right hip surgery. Back surgery. COMPARISON: No prior exams available for comparison. MEASUREMENTS: Right Kidney:__13.5 x 6.8 x 7.0 cm Left Kidney:__12.0 x6.8 x 6.8 cm FINDINGS: Examination quality is less than optimal secondary to body habitus. Right Kidney: Normal echogenicity and cortical thickness. No mass or hydronephrosis. Left Kidney: Normal echogenicity and cortical thickness. No mass or hydronephrosis. Bladder: Within normal limits given the degree of distension. Other: None. CONCLUSION: Kidneys are less than optimally visualized secondary to body habitus. Given this limitation, the gitan eys have a normal appearance. Electronically signed by: Mario Trujillo MD 04/11/2018 1:56 PM EST
[2018-04-11] MEDS: Sod Chloride 0.9% Inj 1,000 ML IV.CONT SCH ×2 (14:19→20:56)
[2018-04-11] MEDS: Ampicillin/Sulbactam Inj 1,500 MG in Sodium Chloride 0.9% Inj 100 ML IV.SIG SCH ×2 (15:30→23:40)
--- NOTE | 2018-04-11 16:13 | P.PNREH ---
Subjective Interval history: Patient awake and alert. Resting comfortably in bed not in any apparent distress. Denies any pain complaints. Back is in place. Review of Systems other (As previously documented) Exam - Physical Examination Vital Signs / I&O: Vital Signs 04/11/18 04:00 04/11/18 08:00 04/11/18 12:00 Temperature 98.2 F 97.3 F L 97.4 F L Pulse Rate 67 61 70 Respiratory Rate 18 22 20 Blood Pressure 138/74 155/60 H 138/68 Pulse Oximetry 95 95 98 Intake & Output 04/10/18 04/11/18 04/11/18 18:59 06:59 18:59 Intake Total 1200 / 1200 1200 / 1200 1000 / 1000 Output Total 150 / 150 1050 / 1050 Balance 1050 / 1050 1200 / 1200 -50 / -50 Weight 114.7 kg Intake: IV 1200 / 1200 1200 / 1200 1000 / 1000 NS Inj 1,000 ML @ 100 mls/hr IV 1000 / 1000 1000 / 1000 1000 / 1000 .CONT .Q10H KENNEDY Rx#:[id number] Unasyn Inj 3 GM In NS Inj 100 200 / 200 200 / 200 ML @ 200 mls/hr IV.SIG Q6H KENNEDY Rx#:[id number] Output: Urine 150 / 150 1050 / 1050 Other: Mode Setting Right Ischium Continuous Continuous # Voids 0 Intake & Output 04/09/18 04/10/18 04/11/18 04/12/18 06:59 06:59 06:59 06:59 Intake Total 2815 / 2815 2400 / 2400 2400 / 2400 1000 / 1000 Output Total 850 / 850 250 / 250 150 / 150 1050 / 1050 Balance 1964 / 1964 2150 / 2150 2250 / 2250 -50 / -50 Weight 104.3 kg 114.7 kg General: No acute distress Musculoskeletal: ROM (Tone is increased in the lower extremities but range of motion is within functional limits) Psychiatric: Cooperative, Appropriate mood & affect (Patient appears to be less confused) - Neurologic Orientation: oriented to: Self, Situation Neurologic: Other (Upper extremity strength 4+/5/5) Objective Laboratory Results - last 24 hr 04/11/18 04/11/18 05:51 05:51 WBC 10.1 RBC 3.51 L Hgb 10.6 L Hct 31.4 L MCV 89.6 MCH 30.1 MCHC 33.6 RDW 15.7 Plt Count 277 MPV 6.8 L Sodium 144 Potassium 4.3 Chloride 112 H Carbon Dioxide 26.2 Anion Gap 6 BUN 25 H Creatinine 2.54 H Estimated GFR 25 L Random Glucose 92 Calcium 8.3 L Microbiology 04/07/18 00:20 Aerobic Blood Culture - Preliminary Blood - Peripheral No growth in 4 days Anaerobic Blood Culture - Preliminary No growth in 4 days 04/07/18 00:30 Aerobic Blood Culture - Preliminary Blood - Peripheral No growth in 4 days Anaerobic Blood Culture - Preliminary No growth in 4 days Assessment and Plan (1) Encephalopathy Status: Acute Code(s): G93.40 - Encephalopathy, unspecified (2) Paraplegia Status: Chronic Code(s): G82.20 - Paraplegia, unspecified (3) Sepsis Status: Acute Code(s): A41.9 - Sepsis, unspecified organism (4) Decubitus ulcer, infected Status: Acute Code(s): L89.90 - Pressure ulcer of unspecified site, unspecified stage; L08.9 - Local infection of the skin and subcutaneous tissue, unspecified Qualifiers: Pressure injury stage: unspecified pressure injury stage Qualified Code(s) : L89.90 - Pressure ulcer of unspecified site, unspecified stage; L08.9 - Local infection of the skin and subcutaneous tissue, unspecified - Plan Assessment: 1. Spinal cord injury with spastic paraplegia and now admitted with infected right ischial decubitus ulcer status post debridement with VAC placement Recommendations: 1. PT re-ordered for LE ROM 2. OT re-ordered to maintain UE strength 3. Incentive spirometry 4. Straight cath q 6 hours to maintain volumes <400 cc. If above 400 cc then cath q 4 hours 5. Bowel program with suppository q od if no BM 6. Turn and reposition q 2 hours and monitor skin carefully 7. Will continue to follow
[2018-04-11 16:42] LABS: Bilirubin,Urine Negative (Negative); Clarity,Urine Hazy (Clear); Color,Urine Yellow (Yellw/Straw); Glucose,Urine (UA) Negative (Negative); Leukocyte Esterase,Urine Trace (Negative); Nitrite,Urine Negative (Negative); Specific Gravity,Urine 1.008 (1.002-1.035); Squamous Epithelial Cell,Urine 1 /hpf (0-5)
[2018-04-11 18:02] LABS: Calcium 7.7 mg/dL (8.5-10.1); Carbon Dioxide 25.5 meq/L (21.0-32.0); Potassium 4.6 meq/L (3.5-5.1)
[2018-04-11] MEDS ORDERED: OXYBUTYNIN 10 MG PO SCH (21:00)
[2018-04-12] MEDS: Ampicillin/Sulbactam Inj 1,500 MG in Sodium Chloride 0.9% Inj 100 ML IV.SIG SCH ×4 (04:26→20:57)
[2018-04-12] MEDS ORDERED: Pharmacy Ordered Lab Info OTHER ONE (05:45)
[2018-04-12] MEDS: Morphine Inj 4 MG/ML Vial IV.PUSH PRN (06:21)
[2018-04-12] MEDS: Sodium Hypochlorite 0.25% Top Sol 500 ML Bottle IRRIGATION SCH ×3 (07:09→20:56)
[2018-04-12 08:03] LABS: Baso % (Auto) 0.5 % (0.0-2.0); Eos # (Auto) 0.2 th/mm3 (0.0-0.4); Eos % (Auto) 2.2 % (0.0-4.0); Hematocrit 30.3 % (39.0-51.0); Lymph # (Auto) 1.6 th/mm3 (1.0-4.8); Lymph % (Auto) 17.3 % (9.0-44.0); Mean Corpuscular HGB Conc 32.9 % (32.0-36.0); Mean Corpuscular Hemoglobin 30.1 pg (27.0-34.0); Mean Corpuscular Volume 91.5 fL (80.0-100.0); Mono # (Auto) 0.8 th/mm3 (0.0-0.9); Mono % (Auto) 8.5 % (0.0-8.0); Neut # (Auto) 6.8 th/mm3 (1.8-7.7); Neut % (Auto) 71.5 % (16.0-70.0); Platelet Count 282 th/mm3 (150-450); Red Blood Count 3.32 mil/mm3 (4.50-5.90); Red Cell Distribution Width 15.5 % (11.6-17.2); White Blood Count 9.5 th/mm3 (4.0-11.0)
[2018-04-12 08:25] LABS: Calcium 7.8 mg/dL (8.5-10.1); Carbon Dioxide 26.2 meq/L (21.0-32.0); Potassium 3.9 meq/L (3.5-5.1)
[2018-04-12] MEDS: Ascorbic Acid 500 MG Tablet PO SCH (08:42)
[2018-04-12] MEDS: Gabapentin 300 MG Capsule PO SCH (08:42)
[2018-04-12] MEDS: Calcium/Vitamin D 250/125 MG Tablet PO SCH ×2 (08:43→20:58)
[2018-04-12] MEDS: Allopurinol 300 MG Tablet PO SCH (08:43)
[2018-04-12] MEDS: Vitamin B Complex/Vitamin C Tablet PO SCH (08:43)
[2018-04-12] MEDS: amLODIPine 5 MG Tablet PO SCH (08:43)
[2018-04-12] MEDS: Tolterodine Tartrate LA 4 MG Capsule PO SCH (08:43)
[2018-04-12] MEDS: Senna/Docusate Sodium 8.6/50 MG Tablet PO SCH ×2 (08:43→20:58)
[2018-04-12] MEDS: Enoxaparin Inj 40 MG/0.4 ML Syringe SQ SCH ×2 (08:44→08:46)
--- NOTE | 2018-04-12 13:32 | P.PN ---
Subjective Interval history: Follow-up for infected decubitus ulcer, neurogenic bladder, YAYA. Patient is currently resting in bed. No fever or chills. Physical Exam Vital signs: Vital Signs 04/11/18 16:00 04/11/18 20:00 04/12/18 00:00 Temperature 99.7 F H 98.1 F 98.3 F Pulse Rate 76 68 70 Respiratory Rate 22 18 18 Blood Pressure 132/67 139/68 151/71 H Pulse Oximetry 97 96 94 L 04/12/18 04:00 04/12/18 08:00 04/12/18 12:00 Temperature 97.7 F 97.5 F L 97.8 F Pulse Rate 71 74 65 Respiratory Rate 18 20 20 Blood Pressure 132/84 166/78 H 147/67 H Pulse Oximetry 94 L 96 98 Intake & Output 04/11/18 04/12/18 04/12/18 18:59 06:59 18:59 Intake Total 1560 / 1560 1200 / 1200 Output Total 2100 / 2100 800 / 800 Balance -540 / -540 400 / 400 Weight 116.9 kg Intake: IV 1200 / 1200 1200 / 1200 NS Inj 1,000 ML @ 100 mls/hr IV 1000 / 1000 1000 / 1000 .CONT .Q10H KENNEDY Rx#:[id number] Unasyn Inj 1,500 MG In NS Inj 100 / 100 200 / 200 100 ML @ 200 mls/hr IV.SIG Q6H KENNEDY Rx#:[id number] Unasyn Inj 3 GM In NS Inj 100 100 / 100 ML @ 200 mls/hr IV.SIG Q6H KENNEDY Rx#:[id number] Oral 360 / 360 Output: Urine 2100 / 2100 800 / 800 Other: Mode Setting Right Ischium Continuous Continuous Right Lower Buttocks Continuous # Voids 0 Narrative: GENERAL: Alert, NAD. SKIN: Warm and dry. HEAD: Normocephalic. EYES: No scleral icterus. No injection or drainage. NECK: Supple, trachea midline. No JVD or lymphadenopathy. CARDIOVASCULAR: Regular rate and rhythm without murmurs, gallops, or rubs. RESPIRATORY: Breath sounds equal bilaterally. No accessory muscle use. GASTROINTESTINAL: Obese, Abdomen soft, non-tender, nondistended. MUSCULOSKELETAL: No cyanosis, or edema. Paraplegic. BACK: Nontender without obvious deformity. No CVA tenderness. - Urinary Catheter Management Straight Cath placed during this visit: yes, but has since been removed by the nurse Reason for continuing: Chronic Urinary Retention Insertion date: 04/09/18 Insertion time: 05:30 Removal date: 04/08/18 Removal time: 14:58 Results - Labs CBC & Chem 7: 04/12/18 07:15 04/12/18 07:15 Laboratory Results - last 24 hr 04/11/18 04/11/18 04/11/18 15:30 15:30 17:07 WBC RBC Hgb Hct MCV MCH MCHC RDW Plt Count MPV Neut % (Auto) Lymph % (Auto) [place] % (Auto) Eos % (Auto) Baso % (Auto) Neut # (Auto) Lymph # (Auto) [place] # (Auto) Eos # (Auto) Baso # (Auto) WBC Differential Differential Comment Sodium 146 H Potassium 4.6 Chloride 111 H Carbon Dioxide 25.5 Anion Gap 10 BUN 24 H Creatinine 2.74 H Estimated GFR 23 L Random Glucose 104 Calcium 7.7 L Prealbumin Urine Color Yellow Urine Clarity Hazy H Urine pH 5.0 Ur Specific [place] 1.008 Urine Protein Negative Urine Glucose (UA) Negative Urine Ketones Negative Urine Occult Blood Negative Urine Nitrate Negative Urine Bilirubin Negative Urine Urobilinogen Less than 2 Ur Leukocyte Esterase Trace H Urine WBC 3 Ur Squamous Epith Cells 1 Ur Microscopic Review Not Reportable Urine Eosinophils None seen 04/12/18 04/12/18 07:15 07:15 WBC 9.5 RBC 3.32 L Hgb 10.0 L Hct 30.3 L MCV 91.5 MCH 30.1 MCHC 32.9 RDW 15.5 Plt Count 282 MPV 7.0 Neut % (Auto) 71.5 H Lymph % (Auto) 17.3 [place] % (Auto) 8.5 H Eos % (Auto) 2.2 Baso % (Auto) 0.5 Neut # (Auto) 6.8 Lymph # (Auto) 1.6 [place] # (Auto) 0.8 Eos # (Auto) 0.2 Baso # (Auto) 0.0 WBC Differential . Differential Comment Auto diff final Sodium 147 H Potassium 3.9 Chloride 112 H Carbon Dioxide 26.2 Anion Gap 9 BUN 27 H Creatinine 2.79 H Estimated GFR 22 L Random Glucose 97 Calcium 7.8 L Prealbumin 9 L Urine Color Urine Clarity Urine pH Ur Specific [place] Urine Protein Urine Glucose (UA) Urine Ketones Urine Occult Blood Urine Nitrate Urine Bilirubin Urine Urobilinogen Ur Leukocyte Esterase Urine WBC Ur Squamous Epith Cells Ur Microscopic Review Urine Eosinophils Microbiology 04/07/18 00:20 Blood - Peripheral Aerobic Blood Culture - Final No growth in 5 days 04/07/18 00:20 Blood - Peripheral Anaerobic Blood Culture - Final No growth in 5 days 04/07/18 00:30 Blood - Peripheral Aerobic Blood Culture - Final No growth in 5 days 04/07/18 00:30 Blood - Peripheral Anaerobic Blood Culture - Final No growth in 5 days - Imaging Impressions Abdomen/Bladder Ultrasound 04/11/18 00:00 CONCLUSION: Kidneys are less than optimally visualized secondary to body habitus. Given this limitation, the kidneys have a normal appearance. - Procedures 04/09/2018 Excisional debridement of the right ischial decubitus ulcer including bone. Insertion of wound Vac. (Plastic surgery). Assessment and Plan - Assessment (1) Decubitus ulcer, infected Code(s): L89.90 - Pressure ulcer of unspecified site, unspecified stage; L08.9 - Local infection of the skin and subcutaneous tissue, unspecified Status: Acute (2) Failure of outpatient treatment Code(s): Z78.9 - Other specified health status Status: Acute (3) Paraplegia Code(s): G82.20 - Paraplegia, unspecified Status: Chronic (4) Sepsis Code(s): A41.9 - Sepsis, unspecified organism Status: Acute - Plan 73-year-old male who presents to the emergency room due to having chills which reports is typical for him when he has infection. Patient was recently hospitalized on 03/21/18 due to sepsis and was discharged on IV antibiotics. Patient is paraplegic and has neurogenic bladder. Self caths 5- 6 times per day. Chronic decubitus ulcer (follows with Dr. Sheikh). Reportedly drainage from ulcer has recently become more foul-smelling. Decubitus wound infection of the left ischium. Group D enterococci and e. coli. -Infectious disease following. Currently on Unasyn. -Plastic surgery following. Patient underwent excision and debridement of right ischial decubitus and wound VAC placement. -Pain control. Per ID, plan to treat as osteo. Paraplegic Exacerbation of chronic pain related to paraplegia -continue home gabapentin; also has morphine for breakthrough -Add Flexeril for left thigh spasm -specialty bed per wound care recs -Appreciate assistance of rehab; consult placed Neurogenic bladder Urinary retention Acute kidney injury -Creatinine on admission on 04/07/2018 was 0.77. Currently 2.79 on 04/12/2018. We will insert a Najera catheter. We will also request a nephrology evaluation. Hypertension -Continue amlodipine 5 mg daily. Obstructive sleep apnea -Continue to use home CPAP. Full code. Discontinue Lovenox and start heparin SQ for DVT prophylaxis. (1) Decubitus ulcer, infected Qualifiers: Pressure injury stage: unspecified pressure injury stage Qualified Code(s): L89.90 - Pressure ulcer of unspecified site, unspecified stage; L08.9 - Local infection of the skin and subcutaneous tissue, unspecified
[2018-04-12] MEDS: Sod Chloride 0.9% Inj 1,000 ML IV.CONT SCH ×2 (13:36→19:00)
--- NOTE | 2018-04-12 13:55 | XR ---
EXAM DATE: 04/12/2018 1:52 PM EST AGE/SEX: 73 years / Male INDICATIONS: Cough and shortness of breath. CLINICAL DATA: This is the patient's sequela encounter. Patient reports that signs and symptoms have been present for 2 weeks and indicates a pain score of 0/10. MEDICAL/SURGICAL HISTORY: Hypertension. Sepsis. Neurogenic bladder. None. COMPARISON: [facility] – [place]ST 1V SINGLE AP, 04/06/2018. . FINDINGS: Portable AP view of the chest demonstrates a normal-sized cardiac silhouette. Lungs are underinflated with likely mild atelectasis at the bases. No definite effusion, consolidation, or pneumothorax is i dentified given the technique. The bones and soft tissues demonstrate no acute finding. Thoracolumbar hardware is present. CONCLUSION: Under inflation with likely atelectasis at the lung bases. Otherwise, no definite acute abnormality i s identified. Electronically signed by: Mario Trujillo MD 04/12/2018 1:54 PM EST
--- NOTE | 2018-04-12 16:32 | P.PNID ---
Subjective Remarks: ID Coverage Notes reviewed C/O constipation Creatinine acutely increased further Straight cath this morning about 1200 ml - not being done regularly Temps ok Patient is post excisional debridement of bone and decub ulcer. Wound culture has group D enterococcus and E. coli. 73-year-old white male who presented to the emergency department with an ischial wound and was noted to have shaking chills. The patient was supposed to follow up with the Wound Care as outpatient. He has already been following with Dr. Sheikh in the Wound Care Department for the wound. The patient has been recently treated for sepsis and UTI due to Escherichia coli. He was on IV Ceftriaxone as outpatient until 04/04/2018. He reports that he has had drainage from the left ischium where he has a chronic wound and that it was foul smelling. The wound was cultured while he was in the hospital and it grew E. coli, Proteus, and Staphylococcus aureus. This was sensitive to the ceftriaxone. Overnight events reviewed dw : Cr increased further ? Gabapentin and Vanco IV cumulative nephrotoxicity. Nephro consulted. No fever no rash no diarrhea Antibiotics: Unasyn Past Medical History: PAST MEDICAL HISTORY: Hypertension, gout, paraplegia, bladder incontinence, history of right hip surgery, history of back surgery. Allergies/Adverse Reactions: Allergies celecoxib Allergy (Severe, Verified 04/06/18 23:15) Hallucinations lisinopril Allergy (Severe, Verified 04/06/18 23:15) Hypotension Sulfa (Sulfonamide Antibiotics) Adverse Reaction (Intermediate, Verified 23:15) Diarrhea pregabalin Adverse Reaction (Unknown, Verified 04/06/18 23:15) Confusion Objective Vital Signs 04/11/18 20:00 04/12/18 00:00 04/12/18 04:00 Temperature 98.1 F 98.3 F 97.7 F Pulse Rate 68 70 71 Respiratory Rate 18 18 18 Blood Pressure 139/68 151/71 H 132/84 Pulse Oximetry 96 94 L 94 L 04/12/18 08:00 04/12/18 12:00 Temperature 97.5 F L 97.8 F Pulse Rate 74 65 Respiratory Rate 20 20 Blood Pressure 166/78 H 147/67 H Pulse Oximetry 96 98 Intake & Output 04/11/18 04/12/18 04/12/18 18:59 06:59 18:59 Intake Total 1560 / 1560 2200 / 2200 200 / 200 Output Total 2100 / 2100 800 / 800 Balance -540 / -540 1400 / 1400 200 / 200 Weight 116.9 kg Intake: IV 1200 / 1200 2200 / 2200 200 / 200 NS Inj 1,000 ML @ 100 mls/hr IV 1000 / 1000 2000 / 2000 .CONT .Q10H [facility] Rx#:[id number] Unasyn Inj 1,500 MG In NS Inj 100 / 100 200 / 200 200 / 200 100 ML @ 200 mls/hr IV.SIG Q6H [facility] Rx#:[id number] Unasyn Inj 3 GM In NS Inj 100 100 / 100 ML @ 200 mls/hr IV.SIG Q6H [facility] Rx#:[id number] Oral 360 / 360 Output: Urine 2099 / 2099 800 / 800 Other: Mode Setting Right Ischium Continuous Continuous Right Lower Buttocks Continuous # Voids 0 04/07/18 00:20 Blood - Peripheral Aerobic Blood Culture - Final No growth in 5 days 04/07/18 00:20 Blood - Peripheral Anaerobic Blood Culture - Final No growth in 5 days 04/07/18 00:30 Blood - Peripheral Aerobic Blood Culture - Final No growth in 5 days 04/07/18 00:30 Blood - Peripheral Anaerobic Blood Culture - Final No growth in 5 days Lab - Hematology Results 04/11/18 04/12/18 05:51 07:15 WBC 10.1 9.5 RBC 3.51 L 3.32 L Hgb 10.6 L 10.0 L Hct 31.4 L 30.3 L MCV 89.6 91.5 MCH 30.1 30.1 MCHC 33.6 32.9 RDW 15.7 15.5 Plt Count 277 282 MPV 6.8 L 7.0 Neut % (Auto) 71.5 H Lymph % (Auto) 17.3 [place] % (Auto) 8.5 H Eos % (Auto) 2.2 Baso % (Auto) 0.5 Neut # (Auto) 6.8 Lymph # (Auto) 1.6 [place] # (Auto) 0.8 Eos # (Auto) 0.2 Baso # (Auto) 0.0 WBC Differential . Differential Comment Auto diff final Lab - Chemistry Results 04/11/18 04/11/18 04/12/18 05:51 17:07 07:15 Sodium 144 146 H 147 H Potassium 4.3 4.6 3.9 Chloride 112 H 111 H 112 H Carbon Dioxide 26.2 25.5 26.2 Anion Gap 6 10 9 BUN 25 H 24 H 27 H Creatinine 2.54 H 2.74 H 2.79 H Estimated GFR 25 L 23 L 22 L Random Glucose 92 104 97 Calcium 8.3 L 7.7 L 7.8 L Prealbumin 9 L Imaging: ITS Impressions Abdomen/Bladder Ultrasound 04/11/18 00:00 CONCLUSION: Kidneys are less than optimally visualized secondary to body habitus. Given this limitation, the kidneys have a normal appearance. Chest X-Ray 04/12/18 00:00 CONCLUSION: Under inflation with likely atelectasis at the lung bases. Otherwise, no definite acute abnormality is identified. Physical Exam: GENERAL: No acute distress. Awake and alery HEENT: The head is atraumatic. Extraocular muscles grossly intact. Pupils reactive to light. No icterus. Oropharynx mucosa moist. No visible lesions. NECK: Supple. No adenopathy. LUNGS: Clear breath sounds. HEART: Regular S1, S2, without murmurs. ABDOMEN: Obese, soft, no tenderness appreciated. EXTREMITIES: Wound vac at left ischial wound. SKIN: No diffuse rash. NEUROLOGIC: Paraplegic. PSYCHIATRIC: Calm and cooperative. Assessment and Plan - Plan IMPRESSION: Decubitus wound infection of the left ischium. Group D enterococci and e. coli. Fever and leukocytosis secondary to infection. Better Paraplegia. Acute renal failure RECOMMENDATIONS: Continue Unasyn IV suspect vanco IV as initial nephrotoxin and now Gabapentin causing cumulative toxicity. Urine eosinophils negative. doroteo Whitman: hold gabapentin and flexeril and agree with Nephro consult. D/W RN reviewed CXR no infiltrate. to resume care on saturday. I will follow prn over weekend. If any change in clinical condition or change in Abx recommended by Nephro please call me.
--- NOTE | 2018-04-12 18:13 | P.CONNP ---
History of Present Illness Service: Nephrology Consult date: 04/12/18 Requesting Physician: Ruth Bedoya Reason for Consult: Acute renal failure Primary Care Provider: UNKNOWN Chief Complaint: Infection History of Present Illness: Patient is a 73-year-old male with history of paraplegia after an accident [place] and injured his back in 1990 states that he had bowel program and has constipation, he has not moved his bowels since Saturday , he also is on bowel program as he gets constipated, after his back injury he had difficulty in passing stools and voiding on his own he has neurogenic bladder, he was here at [facility] and developed infection in his buttock area and has an abscess which was drained and he has a vacuum dressing he developed infection urinary tract infection and was treated with vancomycin, his creatinine was 0.7 and it has risen to 2.79, he has a catheter in place and passing urine, his antibiotic was changed to Unasyn he had a E. coli and has enterococcus in his wound. Review of Systems Constitutional: Reports anorexia Eyes: Denies blind spots, Denies blurry vision, Denies bulging eyes, Denies change in vision, Denies double vision, Denies discharge, Denies dry eyes, Denies floaters, Denies irritation, Denies itchy eyes, Denies loss of vision, Denies pain, Denies requires corrective lenses, Denies sensitivity to light, Denies other Cardiovascular: Reports shortness of breath with activity Respiratory: Reports shortness of breath Gastrointestinal: Reports change in bowel habits, Reports change in stools Genitourinary: Reports difficulty urinating Musculoskeletal: Reports numbness Skin/Breast: Reports other Neurologic: Reports weakness Psychiatric: Reports depression Endocrine: Reports other Hematologic/Lymphatic: Denies easy bleeding, Denies easy bruising, Denies enlarged lymph nodes, Denies other Allergic/Immunologic: Denies GI upset with certain foods, Denies hives, Denies itchy eyes, Denies lip swelling, Denies seasonal runny nose, Denies throat swelling, Denies tongue swelling, Denies wheezing, Denies other PMFSH - History History Provided By: Patient, Medical Record - Medical History Medical History: Medical History (Last Reviewed 04/12/18 @ 18:10 by Ena Hdez MD) Gout Urinary bladder incontinence Hypertension Paraplegia - Surgical History Surgical History: Surgical History (Last Reviewed 04/12/18 @ 18:10 by Ena Hdez MD) History of back surgery History of hip surgery - Family History Family History: Family History (Last Reviewed 04/12/18 @ 18:10 by Ena Hdez MD) Other Family history non-contributory - Social History I have reviewed the patient's Social History: Yes - Tobacco History Second Hand Smoke Exposure: No Tobacco Use In Past 30 Days: No Smoking Status: Former smoker Tobacco Type: Cigarettes - Alcohol History How Often Do You Have a Drink Containing Alcohol: Never - Substance Use History Substance History: No History of Abuse - Travel History Recent Travel in the [place] Within the Last 8 Weeks: No Recent Travel Out of the Country Within the Last 8 Weeks: No - Immunization History Tetanus Immunization: Unsure Medications and Allergies Active Medications: Active Medications Acetaminophen (Tylenol) 650 mg PO Q4H PRN PRN Reason: Temp > 100.4 Al Hydroxide/Mg Hydroxide (Milk Of Jose Liq) 30 ml PO Q12H PRN PRN Reason: Mild Constipation Allopurinol (Zyloprim) 300 mg PO DAILY [facility] Last Admin: 04/12/18 08:43 Dose: 300 mg Amlodipine Besylate (Norvasc) 5 mg PO DAILY [facility] Last Admin: 04/12/18 08:43 Dose: 5 mg Ascorbic Acid (Vitamin C) 2,000 mg PO DAILY [facility] Last Admin: 04/12/18 08:42 Dose: 2,000 mg Aspirin (Aspirin Chew) 81 mg PO DAILY [facility] Last Admin: 04/12/18 08:44 Dose: 81 mg Bisacodyl (Dulcolax Supp) 10 mg RECTAL DAILY PRN PRN Reason: SEVERE CONSITIPATION Calcium/Vitamin D (Oscal With D 250/125 Mg) 2 tab PO BID [facility] Last Admin: 04/12/18 08:43 Dose: 2 tab Collagenase (Santyl Oint) 1 applicatio TOPICAL DAILY PRN PRN Reason: Wound Care Docusate Sodium (Colace) 100 mg PO BID PRN PRN Reason: Constipation Furosemide (Lasix Inj) 20 mg IV.PUSH ONCE ONE Stop: 04/12/18 18:02 Heparin Sodium (Porcine) (Heparin Inj) 5,000 units SQ Q12HR [facility] Sodium Chloride (Ns Inj) 1,000 mls @ 75 mls/hr IV.CONT .[id number] [facility] Last Admin: 04/12/18 13:36 Dose: 100 mls/hr Ampicillin Sodium/Sulbactam Sodium 1,500 mg/ Sodium Chloride 100 mls @ 200 mls/ hr IV.SIG Q6H [facility] Last Infusion: 04/12/18 14:06 Dose: Infused Albumin Human (Flexbumin 25% Inj) 100 mls @ 60 mls/hr IV.SIG Q12H [facility] Lactulose (Lactulose Liq) 30 ml PO DAILY PRN PRN Reason: SEVERE CONSITIPATION Morphine Sulfate (Morphine Inj) 2 mg IV.PUSH Q4H PRN PRN Reason: PAIN 6-10 Last Admin: 04/12/18 06:21 Dose: 2 mg Multivitamins (Theragran) 1 tab PO DAILY [facility] Last Admin: 04/12/18 08:43 Dose: 1 tab Ondansetron HCl (Zofran Inj) 4 mg IV.PUSH Q6H PRN PRN Reason: NAUSEA OR VOMITING Oxybutynin Chloride (Ditropan) 5 mg PO TID [facility] Last Admin: 04/12/18 13:39 Dose: 5 mg Oxybutynin Xl 10mg 1 each PO BID [facility] Senna/Docusate Sodium (Inés-Colace) 1 tab PO BID [facility] Last Admin: 04/12/18 08:43 Dose: 1 tab Sennosides (Senokot) 17.2 mg PO Q12H PRN PRN Reason: Moderate Constipation Sodium Chloride (Ns Flush) 2 ml IV.FLUSH BID [facility] Last Admin: 04/12/18 08:45 Dose: Not Given Sodium Chloride (Ns Flush) 2 ml IV.FLUSH PRN PRN PRN Reason: FLUSH AFTER USING IV ACCESS Sodium Hypochlorite (Dakin's 0.25% Top Soln) 500 ml IRRIGATION Q12H [facility] Last Admin: 04/12/18 08:42 Dose: Not Given Tolterodine Tartrate (Detrol La) 4 mg PO DAILY [facility] Last Admin: 04/12/18 08:43 Dose: 4 mg Vitamin B Complex/Vitamin C (Allbee C) 1 tab PO DAILY [facility] Last Admin: 04/12/18 08:43 Dose: 1 tab Vitamin D (Vitamin D3) 400 unit PO BID [facility] Last Admin: 04/12/18 08:43 Dose: 400 unit Zinc Sulfate (Zinc-220) 220 mg PO DAILY [facility] Last Admin: 04/12/18 08:43 Dose: 220 mg Allergies Allergy/AdvReac Type Severity Reaction Status Date / Time celecoxib Allergy Severe Hallucinati Verified 04/06/18 23:15 ons lisinopril Allergy Severe Hypotension Verified 04/06/18 23:15 Sulfa (Sulfonamide AdvReac Intermediate Diarrhea Verified 04/06/18 23:15 Antibiotics) pregabalin AdvReac Unknown Confusion Verified 04/06/18 23:15 Home Medications Medication Instructions Recorded Confirmed Type collagenase clostridium histo. 1 applic TOPICAL DAILY PRN 03/22/18 04/06/18 History [Santyl] gabapentin 600 mg PO TID 03/22/18 04/06/18 History gentamicin 1 applic TOPICAL DAILY PRN 03/22/18 04/06/18 History allopurinol 300 mg PO DAILY 03/23/18 04/06/18 History amlodipine 5 mg PO DAILY 03/23/18 04/06/18 History ascorbic acid (vitamin C) [Vitamin 2 g PO DAILY 03/23/18 04/06/18 History C] aspirin 81 mg PO DAILY 03/23/18 04/06/18 History calcium carbonate-vitamin D3 1 tab PO BID 03/23/18 04/06/18 History [Calcium 500 + D] chlorpheniramine maleate 2 mg PO BID PRN 03/23/18 04/06/18 History cholecalciferol (vitamin D3) 400 unit PO BID 03/23/18 04/06/18 History [Vitamin D3] cinnamon bark [Cinnamon] 500 mg PO DAILY 03/23/18 04/06/18 History cranberry fruit concentrate 450 mg PO DAILY 03/23/18 04/06/18 History [cranberry] d-mannose 500 mg PO BID 03/23/18 04/06/18 History docusate sodium [Colace] 100 mg PO BID PRN 03/23/18 04/06/18 History docusate sodium [Enemeez] 283 mg SC DAILY PRN 03/23/18 03/23/18 History gabapentin 600 mg PO TID 03/23/18 04/06/18 History lactobacillus combination no.4 3,000 mmu cells PO DAILY 03/23/18 04/06/18 History [Probiotic] multivitamin 1 cap PO QAM 03/23/18 04/06/18 History naproxen sodium [Aleve] 220 mg PO BID PRN 03/23/18 04/06/18 History nitroglycerin 0.4 mg SUBLINGUAL Q5-15M PRN 03/23/18 04/06/18 History olmesartan-hydrochlorothiazide 1 tab PO DAILY 03/23/18 04/06/18 History omega 3-gae-ssh-fish oil [Fish Oil] 2,000 mg PO DAILY 03/23/18 04/06/18 History oxybutynin chloride 10 mg PO BID 03/23/18 04/06/18 History oxybutynin chloride 10 mg PO DAILY 03/23/18 04/06/18 History sennosides [Senokot] 8.6 mg PO BID PRN 03/23/18 04/06/18 History vitamin B complex 1 cap PO DAILY 03/23/18 04/06/18 History zinc 50 mg PO QID 03/23/18 04/06/18 History Exam Vital signs: Vital Signs 04/11/18 20:00 04/12/18 00:00 04/12/18 04:00 Temperature 98.1 F 98.3 F 97.7 F Pulse Rate 68 70 71 Respiratory Rate 18 18 18 Blood Pressure 139/68 151/71 H 132/84 Pulse Oximetry 96 94 L 94 L 04/12/18 08:00 04/12/18 12:00 Temperature 97.5 F L 97.8 F Pulse Rate 74 65 Respiratory Rate 20 20 Blood Pressure 166/78 H 147/67 H Pulse Oximetry 96 98 Intake & Output 04/11/18 04/12/18 04/12/18 18:59 06:59 18:59 Intake Total 1560 / 1560 2200 / 2200 200 / 200 Output Total 2100 / 2100 800 / 800 Balance -540 / -540 1400 / 1400 200 / 200 Weight 116.9 kg Intake: IV 1200 / 1200 2200 / 2200 200 / 200 NS Inj 1,000 ML @ 100 mls/hr IV 1000 / 1000 2000 / 2000 .CONT .Q10H [facility] Rx#:[id number] Unasyn Inj 1,500 MG In NS Inj 100 / 100 200 / 200 200 / 200 100 ML @ 200 mls/hr IV.SIG Q6H [facility] Rx#:[id number] Unasyn Inj 3 GM In NS Inj 100 100 / 100 ML @ 200 mls/hr IV.SIG Q6H [facility] Rx#:[id number] Oral 360 / 360 Output: Urine 2100 / 2100 800 / 800 Other: Mode Setting Right Ischium Continuous Continuous Right Lower Buttocks Continuous # Voids 0 Narrative: GENERAL: Well-nourished, well-developed patient. SKIN: Warm and dry. HEAD: Normocephalic. EYES: No scleral icterus. No injection or drainage. NECK: Supple, trachea midline. No JVD or lymphadenopathy. CARDIOVASCULAR: Regular rate and rhythm without murmurs, gallops, or rubs. RESPIRATORY: Breath sounds equal bilaterally. No accessory muscle use. GASTROINTESTINAL: Abdomen soft, non-tender, nondistended. EXTREMITIES: Paraplegia 2+ edema, penile edema present NEUROLOGICAL: Awake, alert, and oriented x 3. Paraplegic. Results - Lab Results 04/12/18 07:15 04/12/18 07:15 Most recent lab results Calcium 7.8 mg/dL (8.5-10.1) L 04/12/18 07:15 Magnesium 1.9 mg/dL (1.5-2.5) 04/07/18 00:20 Assessment and Plan - Assessment (1) Acute renal failure Code(s): N17.9 - Acute kidney failure, unspecified Status: Acute (2) Paraplegia Code(s): G82.20 - Paraplegia, unspecified Status: Chronic (3) PNA (pneumonia) Code(s): J18.9 - Pneumonia, unspecified organism Status: Acute (4) UTI (urinary tract infection) Code(s): N39.0 - Urinary tract infection, site not specified Status: Acute (5) Decubitus ulcer, infected Code(s): L89.90 - Pressure ulcer of unspecified site, unspecified stage; L08.9 - Local infection of the skin and subcutaneous tissue, unspecified Status: Acute - Plan I discussed with him that he has redistribution of fluid because of recent infection, he has buttock abscess and a vacuum dressing in place, culture is growing E. coli and Enterococcus faecalis and he has been on IV antibiotic ampicillin/sulbactam Infectious diseases following Urine eosinophil was negative We will check urine sodium I will give him albumin and followed with Lasix 20 mg IV to mobilize the fluids continue with albumin this albumin is low Renal functions may improve with time He is worried about his bowel program as he has a abscess and sensitive area and is constipated has not have a bowel movement since last Saturday I will defer this for primary medical team to address. (5) Decubitus ulcer, infected Qualifiers: Pressure injury stage: unspecified pressure injury stage Qualified Code(s): L89.90 - Pressure ulcer of unspecified site, unspecified stage; L08.9 - Local infection of the skin and subcutaneous tissue, unspecified
[2018-04-12] MEDS: Albumin Human 25% Inj 100 ML IV.SIG SCH (19:02)
[2018-04-12] MEDS: Heparin - SQ 10,000 UNITS/ML Vial SQ SCH ×2 (20:58→21:02)
[2018-04-12] MEDS ORDERED: Gabapentin 300 MG Capsule PO SCH (21:00)
[2018-04-13] MEDS: Ampicillin/Sulbactam Inj 1,500 MG in Sodium Chloride 0.9% Inj 100 ML IV.SIG SCH ×4 (03:10→21:08)
[2018-04-13] MEDS: Sod Chloride 0.9% Inj 1,000 ML IV.CONT SCH ×2 (03:10→14:00)
[2018-04-13] MEDS: Albumin Human 25% Inj 100 ML IV.SIG SCH ×2 (05:37→19:25)
[2018-04-13] MEDS: Calcium/Vitamin D 250/125 MG Tablet PO SCH ×2 (08:24→21:08)
[2018-04-13] MEDS: Tolterodine Tartrate LA 4 MG Capsule PO SCH (08:24)
[2018-04-13] MEDS: Ascorbic Acid 500 MG Tablet PO SCH (08:24)
[2018-04-13] MEDS: Vitamin B Complex/Vitamin C Tablet PO SCH (08:24)
[2018-04-13] MEDS: Senna/Docusate Sodium 8.6/50 MG Tablet PO SCH ×2 (08:25→21:01)
[2018-04-13] MEDS: Allopurinol 300 MG Tablet PO SCH (08:25)
[2018-04-13] MEDS: amLODIPine 5 MG Tablet PO SCH (08:25)
[2018-04-13] MEDS: Heparin - SQ 10,000 UNITS/ML Vial SQ SCH ×2 (08:26→21:11)
[2018-04-13] MEDS: Sodium Hypochlorite 0.25% Top Sol 500 ML Bottle IRRIGATION SCH ×2 (08:26→20:43)
[2018-04-13 08:53] LABS: Baso # (Auto) 0.1 th/mm3 (0.0-0.2); Baso % (Auto) 0.6 % (0.0-2.0); Eos # (Auto) 0.2 th/mm3 (0.0-0.4); Eos % (Auto) 2.2 % (0.0-4.0); Hematocrit 27.4 % (39.0-51.0); Hemoglobin 9.2 gm/dL (13.0-17.0); Lymph # (Auto) 1.5 th/mm3 (1.0-4.8); Lymph % (Auto) 16.3 % (9.0-44.0); Mean Corpuscular HGB Conc 33.6 % (32.0-36.0); Mean Corpuscular Hemoglobin 30.2 pg (27.0-34.0); Mean Corpuscular Volume 89.7 fL (80.0-100.0); Mean Platelet Volume 6.9 fL (7.0-11.0); Mono # (Auto) 0.7 th/mm3 (0.0-0.9); Mono % (Auto) 7.2 % (0.0-8.0); Neut # (Auto) 6.8 th/mm3 (1.8-7.7); Neut % (Auto) 73.7 % (16.0-70.0); Platelet Count 242 th/mm3 (150-450); Red Blood Count 3.05 mil/mm3 (4.50-5.90); Red Cell Distribution Width 15.6 % (11.6-17.2); White Blood Count 9.2 th/mm3 (4.0-11.0)
[2018-04-13 09:15] LABS: Calcium 8.4 mg/dL (8.5-10.1); Carbon Dioxide 22.7 meq/L (21.0-32.0); Potassium 3.9 meq/L (3.5-5.1)
--- NOTE | 2018-04-13 11:58 | P.PN ---
Subjective Interval history: Follow-up for infected decubitus ulcer, neurogenic bladder, YAYA. Patient is currently doing well. Denies any acute concerns. However he exhibits somewhat flat affect. Physical Exam Vital signs: Vital Signs 04/12/18 12:00 04/12/18 16:00 04/12/18 20:00 Temperature 97.8 F 98.2 F 97.7 F Pulse Rate 65 65 63 Respiratory Rate 20 20 18 Blood Pressure 147/67 H 159/89 H 149/67 H Pulse Oximetry 98 97 95 04/13/18 00:00 04/13/18 04:00 04/13/18 07:59 Temperature 97.7 F 97.6 F 97.5 F L Pulse Rate 65 58 L 63 Respiratory Rate 18 18 18 Blood Pressure 151/67 H 158/70 H 156/89 H Pulse Oximetry 95 96 95 Intake & Output 04/12/18 04/13/18 04/13/18 18:59 06:59 18:59 Intake Total 560 / 560 1300 / 1300 900 / 900 Output Total 350 / 350 1824 / 1824 Balance 210 / 210 -525 / -525 900 / 900 Weight 110.7 kg Intake: IV 200 / 200 1300 / 1300 900 / 900 NS Inj 1,000 ML @ 75 mls/hr IV. 1000 / 1000 800 / 800 CONT .[id number] [facility] Rx#:[id number] Flexbumin 25% Inj 100 ML @ 60 100 / 100 100 / 100 mls/hr IV.SIG Q12H [facility] Rx#: [id number] Unasyn Inj 1,500 MG In NS Inj 200 / 200 200 / 200 100 ML @ 200 mls/hr IV.SIG Q6H [facility] Rx#:[id number] Oral 360 / 360 Output: Urine 350 / 350 Urine Amount (Catheter) 1824 Indwelling Urethral Catheter 1824 Other: Mode Setting Right Ischium Continuous Continuous Right Lower Buttocks Continuous Continuous Continuous # Voids 0 Date of Last Bowel Movement 04/08/18 # Bowel Movements 0 Narrative: GENERAL: Well-nourished, well-developed patient. SKIN: Warm and dry. HEAD: Normocephalic. EYES: No scleral icterus. No injection or drainage. NECK: Supple, trachea midline. No JVD or lymphadenopathy. CARDIOVASCULAR: Regular rate and rhythm without murmurs, gallops, or rubs. RESPIRATORY: Breath sounds equal bilaterally. No accessory muscle use. GASTROINTESTINAL: Abdomen soft, non-tender, nondistended. EXTREMITIES: Paraplegia 2+ edema, penile edema present NEUROLOGICAL: Awake, alert, and oriented x 3. Paraplegic. - Urinary Catheter Management Straight Cath placed during this visit: yes, but has since been removed by the nurse Reason for continuing: Acute urinary retention Insertion date: 04/09/18 Insertion time: 05:30 Removal date: 04/08/18 Removal time: 14:58 Indwelling Urethral Catheter Cath placed during this visit: yes Reason for continuing: Acute urinary retention Insertion date: 04/12/18 Insertion time: 12:30 Results - Labs CBC & Chem 7: 04/13/18 08:15 04/13/18 08:15 Laboratory Results - last 24 hr 04/12/18 04/13/18 04/13/18 23:45 08:15 08:15 WBC 9.2 RBC 3.05 L Hgb 9.2 L Hct 27.4 L MCV 89.7 MCH 30.2 MCHC 33.6 RDW 15.6 Plt Count 242 MPV 6.9 L Neut % (Auto) 73.7 H Lymph % (Auto) 16.3 [place] % (Auto) 7.2 Eos % (Auto) 2.2 Baso % (Auto) 0.6 Neut # (Auto) 6.8 Lymph # (Auto) 1.5 [place] # (Auto) 0.7 Eos # (Auto) 0.2 Baso # (Auto) 0.1 WBC Differential . Differential Comment Auto diff final Sodium 146 H Potassium 3.9 Chloride 115 H Carbon Dioxide 22.7 Anion Gap 8 BUN 26 H Creatinine 2.91 H Estimated GFR 21 L Random Glucose 84 Calcium 8.4 L Ur Random Sodium 94 Microbiology 04/07/18 00:20 Blood - Peripheral Aerobic Blood Culture - Final No growth in 5 days 04/07/18 00:20 Blood - Peripheral Anaerobic Blood Culture - Final No growth in 5 days 04/07/18 00:30 Blood - Peripheral Aerobic Blood Culture - Final No growth in 5 days 04/07/18 00:30 Blood - Peripheral Anaerobic Blood Culture - Final No growth in 5 days - Imaging Impressions Chest X-Ray 04/12/18 00:00 CONCLUSION: Under inflation with likely atelectasis at the lung bases. Otherwise, no definite acute abnormality is identified. - Procedures 04/09/2018 Excisional debridement of the right ischial decubitus ulcer including bone. Insertion of wound Vac. (Plastic surgery). Assessment and Plan - Assessment (1) Decubitus ulcer, infected Code(s): L89.90 - Pressure ulcer of unspecified site, unspecified stage; L08.9 - Local infection of the skin and subcutaneous tissue, unspecified Status: Acute (2) Failure of outpatient treatment Code(s): Z78.9 - Other specified health status Status: Acute (3) Paraplegia Code(s): G82.20 - Paraplegia, unspecified Status: Chronic (4) Sepsis Code(s): A41.9 - Sepsis, unspecified organism Status: Acute - Plan 73-year-old male who presents to the emergency room due to having chills which reports is typical for him when he has infection. Patient was recently hospitalized on 03/21/18 due to sepsis and was discharged on IV antibiotics. Patient is paraplegic and has neurogenic bladder. Self caths 5- 6 times per day. Chronic decubitus ulcer (follows with Dr. Sheikh). Reportedly drainage from ulcer has recently become more foul-smelling. Decubitus wound infection of the left ischium. Group D enterococci and e. coli. -Infectious disease following. Currently on Unasyn. -Plastic surgery following. Patient underwent excision and debridement of right ischial decubitus and wound VAC placement. -Pain control. Per ID, plan to treat as osteo. Paraplegic Exacerbation of chronic pain related to paraplegia -morphine for pain. -specialty bed per wound care recs Neurogenic bladder Urinary retention Acute kidney injury -Creatinine continues to worsen 2.79 --> 2.91 today. Nephrology following. -Stopped Gabapentin and Flexeril. Hypertension -Continue amlodipine 5 mg daily. Obstructive sleep apnea -Continue to use home CPAP. Full code. heparin SQ for DVT prophylaxis. (1) Decubitus ulcer, infected Qualifiers: Pressure injury stage: unspecified pressure injury stage Qualified Code(s): L89.90 - Pressure ulcer of unspecified site, unspecified stage; L08.9 - Local infection of the skin and subcutaneous tissue, unspecified
--- NOTE | 2018-04-13 18:12 | P.PNNP ---
Subjective Interval history: Patient with vacuum dressing in place Physical Exam Vital signs: Vital Signs 04/12/18 20:00 04/13/18 00:00 04/13/18 04:00 Temperature 97.7 F 97.7 F 97.6 F Pulse Rate 63 65 58 L Respiratory Rate 18 Blood Pressure 149/67 H 151/67 H 158/70 H Pulse Oximetry 95 95 96 04/13/18 07:59 04/13/18 12:00 04/13/18 16:00 Temperature 97.5 F L 98.5 F 98 F Pulse Rate 63 67 91 H Respiratory Rate Blood Pressure 156/89 H 139/77 173/84 H Pulse Oximetry 95 93 L 93 L Intake & Output 04/12/18 04/13/18 04/13/18 18:59 06:59 18:59 Intake Total 560 / 560 1300 / 1300 2300 / 2300 Output Total 350 / 350 1824 / 1824 900 / 900 Balance 210 / 210 -525 / -525 1400 / 1400 Weight 110.7 kg Intake: IV 200 / 200 1300 / 1300 1300 / 1300 NS Inj 1,000 ML @ 75 mls/hr IV. 1000 / 1000 1000 / 1000 CONT .[id number] [facility] Rx#:[id number] Flexbumin 25% Inj 100 ML @ 60 100 / 100 100 / 100 mls/hr IV.SIG Q12H [facility] Rx#: [id number] Unasyn Inj 1,500 MG In NS Inj 200 / 200 200 / 200 200 / 200 100 ML @ 200 mls/hr IV.SIG Q6H [facility] Rx#:[id number] Oral 360 / 360 1000 / 1000 Output: Urine 350 / 350 900 / 900 Urine Amount (Catheter) 1824 Indwelling Urethral Catheter 1824 Other: Mode Setting Right Ischium Continuous Continuous Right Lower Buttocks Continuous Continuous Continuous # Voids 0 Date of Last Bowel Movement 04/13/18 # Bowel Movements 0 1 Narrative: GENERAL: Well-nourished, well-developed patient. SKIN: Warm and dry. HEAD: Normocephalic. EYES: No scleral icterus. No injection or drainage. NECK: Supple, trachea midline. No JVD or lymphadenopathy. CARDIOVASCULAR: Regular rate and rhythm without murmurs, gallops, or rubs. RESPIRATORY: Breath sounds equal bilaterally. No accessory muscle use. GASTROINTESTINAL: Abdomen soft, non-tender, nondistended. EXTREMITIES: Paraplegia 2+ edema, penile edema present NEUROLOGICAL: Awake, alert, and oriented x 3. Paraplegic. - Urinary Catheter Management Straight Cath placed during this visit: yes, but has since been removed by the nurse Reason for continuing: Acute urinary retention Insertion date: 04/09/18 Insertion time: 05:30 Removal date: 04/08/18 Removal time: 14:58 Indwelling Urethral Catheter Cath placed during this visit: yes Reason for continuing: Acute urinary retention Insertion date: 04/12/18 Insertion time: 12:30 Assessment and Plan - Assessment (1) Acute renal failure Code(s): N17.9 - Acute kidney failure, unspecified Status: Acute (2) Paraplegia Code(s): G82.20 - Paraplegia, unspecified Status: Chronic (3) PNA (pneumonia) Code(s): J18.9 - Pneumonia, unspecified organism Status: Acute (4) UTI (urinary tract infection) Code(s): N39.0 - Urinary tract infection, site not specified Status: Acute (5) Decubitus ulcer, infected Code(s): L89.90 - Pressure ulcer of unspecified site, unspecified stage; L08.9 - Local infection of the skin and subcutaneous tissue, unspecified Status: Acute Qualifiers: Pressure injury stage: unspecified pressure injury stage Qualified Code(s) : L89.90 - Pressure ulcer of unspecified site, unspecified stage; L08.9 - Local infection of the skin and subcutaneous tissue, unspecified - Plan I discussed with him that he has redistribution of fluid because of recent infection, he has buttock abscess and a vacuum dressing in place, culture is growing E. coli and Enterococcus faecalis and he has been on IV antibiotic ampicillin/sulbactam Infectious diseases following Urine eosinophil was negative Patient has increase urine output as a result of use of albumin and 1 dose of Lasix Creatinine slightly elevated continue to monitor
[2018-04-14] MEDS: Ampicillin/Sulbactam Inj 1,500 MG in Sodium Chloride 0.9% Inj 100 ML IV.SIG SCH ×4 (02:24→21:11)
[2018-04-14] MEDS: Sod Chloride 0.9% Inj 1,000 ML IV.CONT SCH ×2 (04:54→21:11)
[2018-04-14] MEDS: Albumin Human 25% Inj 100 ML IV.SIG SCH ×2 (05:37→18:34)
[2018-04-14 07:17] LABS: Baso % (Auto) 0.4 % (0.0-2.0); Eos # (Auto) 0.2 th/mm3 (0.0-0.4); Eos % (Auto) 1.5 % (0.0-4.0); Hematocrit 25.8 % (39.0-51.0); Hemoglobin 8.8 gm/dL (13.0-17.0); Lymph # (Auto) 1.6 th/mm3 (1.0-4.8); Mean Corpuscular HGB Conc 34.3 % (32.0-36.0); Mean Corpuscular Hemoglobin 30.1 pg (27.0-34.0); Mean Corpuscular Volume 87.8 fL (80.0-100.0); Mean Platelet Volume 6.7 fL (7.0-11.0); Mono # (Auto) 0.7 th/mm3 (0.0-0.9); Neut # (Auto) 8.4 th/mm3 (1.8-7.7); Neut % (Auto) 77.1 % (16.0-70.0); Platelet Count 235 th/mm3 (150-450); Red Blood Count 2.94 mil/mm3 (4.50-5.90); Red Cell Distribution Width 15.3 % (11.6-17.2); White Blood Count 10.9 th/mm3 (4.0-11.0)
[2018-04-14 07:48] LABS: Calcium 8.4 mg/dL (8.5-10.1); Carbon Dioxide 23.6 meq/L (21.0-32.0); Potassium 3.7 meq/L (3.5-5.1)
[2018-04-14] MEDS: Vitamin B Complex/Vitamin C Tablet PO SCH (10:28)
[2018-04-14] MEDS: Ascorbic Acid 500 MG Tablet PO SCH (10:29)
[2018-04-14] MEDS: Allopurinol 300 MG Tablet PO SCH (10:29)
[2018-04-14] MEDS: Senna/Docusate Sodium 8.6/50 MG Tablet PO SCH ×2 (10:29→21:18)
[2018-04-14] MEDS: Calcium/Vitamin D 250/125 MG Tablet PO SCH ×2 (10:29→21:18)
[2018-04-14] MEDS: Tolterodine Tartrate LA 4 MG Capsule PO SCH (10:29)
[2018-04-14] MEDS: Heparin - SQ 10,000 UNITS/ML Vial SQ SCH ×3 (10:30→21:22)
[2018-04-14] MEDS: amLODIPine 10 MG Tablet PO SCH (10:39)
--- NOTE | 2018-04-14 11:39 | P.PNIM ---
Subjective Interval history: Follow-up for infected decubitus ulcer, neurogenic bladder, YAYA. Patient is currently doing well. Patient is concerned about his high blood pressure. Denies any chest pain, shortness of breath, fever or chills. Physical Exam Vital signs: Last Vital Signs Temp 97.7 F 04/14/18 07:55 Pulse 65 04/14/18 07:55 Resp 20 04/14/18 07:55 BP 175/111 H 04/14/18 07:55 Pulse Ox 95 04/14/18 07:55 Intake & Output 04/12/18 04/13/18 04/14/18 04/15/18 06:59 06:59 06:59 06:59 Intake Total 3760 / 3760 1860 / 1860 3550 / 3550 100 / 100 Output Total 2900 / 2900 2175 / 2175 1875 / 1875 Balance 860 / 860 -315 / -315 1675 / 1675 100 / 100 Weight 116.9 kg 110.7 kg 110.6 kg Narrative: GENERAL: Well-nourished, well-developed patient. SKIN: Warm and dry. HEAD: Normocephalic. EYES: No scleral icterus. No injection or drainage. NECK: Supple, trachea midline. No JVD or lymphadenopathy. CARDIOVASCULAR: Regular rate and rhythm without murmurs, gallops, or rubs. RESPIRATORY: Breath sounds equal bilaterally. No accessory muscle use. GASTROINTESTINAL: Abdomen soft, non-tender, nondistended. EXTREMITIES: Paraplegia 2+ edema, penile edema present NEUROLOGICAL: Awake, alert, and oriented x 3. Paraplegic. Urinary Catheter Management Straight: Cath placed during this visit: yes, but has since been removed by the nurse Insertion date: 04/09/18 Insertion time: 05:30 Removal date: 04/08/18 Removal time: 14:58 Indwelling Urethral Catheter: Cath placed during this visit: yes Urethral indwelling: No Insertion date: 04/12/18 Insertion time: 12:30 Results Labs CBC & Chem 7: 04/14/18 06:44 04/14/18 06:44 Procedures Procedures: 04/09/2018 Excisional debridement of the right ischial decubitus ulcer including bone. Insertion of wound Vac. (Plastic surgery). Assessment and Plan (1) Encephalopathy: Code(s): G93.40 - Encephalopathy, unspecified Status: Acute (2) Paraplegia: Code(s): G82.20 - Paraplegia, unspecified Status: Chronic (3) Sepsis: Code(s): A41.9 - Sepsis, unspecified organism Status: Acute (4) Decubitus ulcer, infected: Code(s): L89.90 - Pressure ulcer of unspecified site, unspecified stage; L08.9 - Local infection of the skin and subcutaneous tissue, unspecified Status: Acute Plan 73-year-old male who presents to the emergency room due to having chills which reports is typical for him when he has infection. Patient was recently hospitalized on 03/21/18 due to sepsis and was discharged on IV antibiotics. Patient is paraplegic and has neurogenic bladder. Self caths 5- 6 times per day. Chronic decubitus ulcer (follows with Dr. Sheikh). Reportedly drainage from ulcer has recently become more foul-smelling. Decubitus wound infection of the left ischium. Group D enterococci and e. coli. -Infectious disease following. Currently on Unasyn. -Plastic surgery following. Patient underwent excision and debridement of right ischial decubitus and wound VAC placement. -Pain control. Per ID, plan to treat as osteo. Paraplegic Exacerbation of chronic pain related to paraplegia -morphine for pain. -specialty bed per wound care recs Neurogenic bladder Urinary retention Acute kidney injury -Creatinine continues to worsen 2.79 --> 2.91--> 2.59 today. Nephrology following. -Stopped Gabapentin and Flexeril. Hypertension -Increase amlodipine to 10 mg daily. Continue clonidine as needed. If needed, will start hydralazine. Obstructive sleep apnea -Continue to use home CPAP. Full code. heparin SQ for DVT prophylaxis. Progress Note: Quality VTE Deep Vein Thrombosis/Pulmonary Embolism Present on Admission: No _ (1) Decubitus ulcer, infected Qualifiers: Pressure injury stage: unspecified pressure injury stage Qualified Code(s): L89.90 - Pressure ulcer of unspecified site, unspecified stage; L08.9 - Local infection of the skin and subcutaneous tissue, unspecified (2) Sepsis Qualifiers: Sepsis type:
[2018-04-14] MEDS: hydrALAZINE 10 MG Tablet PO SCH ×2 (13:38→18:34)
--- NOTE | 2018-04-14 16:21 | P.DCO ---
Diagnosis (1) Paraplegia: Status: Chronic (2) Decubitus ulcer, infected: Status: Acute Home Health Nursing Order: Medical education, Signs/symptoms of disease process, Wound care and dressing changes and Nursing assessment with vital signs Instructions: Wound vac management. Case Management Consult Case Management Consult-Home Health: Yes I have seen patient Angie Jeffrey on 04/14/18. My clinical findings support the need for the requested home health care services because: Limited mobility due to disease progression, Deconditioned with increased weakness, Medication compliance is questionable, Limited ability to care for self, Need for psychosocial assistance, Impaired cognition/judgement, High risk of falls and Infection with risk of complications I certify that my clinical findings support that this patient is homebound because: Unsteady gait/balance, Unsafe to leave home unassisted, Need for psychosocial assistance, Non-ambulatory: confined to bed or chair and Unable to use public transportation _ (1) Decubitus ulcer, infected Qualifiers: Pressure injury stage: unspecified pressure injury stage Qualified Code(s): L89.90 - Pressure ulcer of unspecified site, unspecified stage; L08.9 - Local infection of the skin and subcutaneous tissue, unspecified
--- NOTE | 2018-04-14 17:52 | P.PNNP ---
Subjective Interval history: Patient is doing not too well and complaining of feeling weak and tired Physical Exam Vital signs: Vital Signs 04/13/18 20:00 04/13/18 23:56 04/14/18 00:00 Temperature 97.9 F 97.6 F Pulse Rate 74 63 Respiratory Rate 18 18 18 Blood Pressure 169/74 H 160/75 H Pulse Oximetry 94 L 94 L 04/14/18 04:00 04/14/18 04:55 04/14/18 07:55 Temperature 97.7 F 97.7 F Pulse Rate 64 65 Respiratory Rate 18 18 20 Blood Pressure 182/84 H 175/111 H Pulse Oximetry 94 L 95 04/14/18 11:10 04/14/18 15:50 Temperature 97.8 F Pulse Rate 66 74 Respiratory Rate 20 20 Blood Pressure 196/92 H 174/83 H Pulse Oximetry 94 L Intake & Output 04/13/18 04/14/18 04/14/18 18:59 06:59 18:59 Intake Total 2300 / 2300 1250 / 1250 200 / 200 Output Total 900 / 900 975 / 975 600 / 600 Balance 1400 / 1400 275 / 275 -400 / -400 Weight 110.6 kg Intake: IV 1300 / 1300 1250 / 1250 200 / 200 NS Inj 1,000 ML @ 75 mls/hr IV. 1000 / 1000 950 / 950 CONT .[id number] [facility] Rx#:[id number] Flexbumin 25% Inj 100 ML @ 60 100 / 100 100 / 100 100 / 100 mls/hr IV.SIG Q12H [facility] Rx#: [id number] Unasyn Inj 1,500 MG In NS Inj 200 / 200 200 / 200 100 / 100 100 ML @ 200 mls/hr IV.SIG Q6H [facility] Rx#:[id number] Oral 1000 / 1000 Output: Urine 900 / 900 Urine Amount (Catheter) 975 / 975 600 / 600 Indwelling Urethral Catheter 975 / 975 600 / 600 Other: Mode Setting Right Ischium Continuous Right Lower Buttocks Continuous Continuous Date of Last Bowel Movement 04/13/18 04/13/18 04/13/18 # Bowel Movements 1 1 Narrative: GENERAL: Well-nourished, well-developed patient. SKIN: Warm and dry. HEAD: Normocephalic. EYES: No scleral icterus. No injection or drainage. NECK: Supple, trachea midline. No JVD or lymphadenopathy. CARDIOVASCULAR: Regular rate and rhythm without murmurs, gallops, or rubs. RESPIRATORY: Breath sounds equal bilaterally. No accessory muscle use. GASTROINTESTINAL: Abdomen soft, non-tender, nondistended. EXTREMITIES: Paraplegia 2+ edema, penile edema present NEUROLOGICAL: Awake, alert, and oriented x 3. Paraplegic. - Urinary Catheter Management Straight Cath placed during this visit: yes, but has since been removed by the nurse Reason for continuing: Acute urinary retention Insertion date: 04/09/18 Insertion time: 05:30 Removal date: 04/08/18 Removal time: 14:58 Indwelling Urethral Catheter Cath placed during this visit: yes Urethral indwelling: No Reason for continuing: Acute urinary retention Insertion date: 04/12/18 Insertion time: 12:30 Assessment and Plan - Assessment (1) Acute renal failure Code(s): N17.9 - Acute kidney failure, unspecified Status: Acute (2) Paraplegia Code(s): G82.20 - Paraplegia, unspecified Status: Chronic (3) PNA (pneumonia) Code(s): J18.9 - Pneumonia, unspecified organism Status: Acute (4) UTI (urinary tract infection) Code(s): N39.0 - Urinary tract infection, site not specified Status: Acute (5) Decubitus ulcer, infected Code(s): L89.90 - Pressure ulcer of unspecified site, unspecified stage; L08.9 - Local infection of the skin and subcutaneous tissue, unspecified Status: Acute Qualifiers: Pressure injury stage: unspecified pressure injury stage Qualified Code(s) : L89.90 - Pressure ulcer of unspecified site, unspecified stage; L08.9 - Local infection of the skin and subcutaneous tissue, unspecified - Plan I discussed with him that he has redistribution of fluid because of recent infection, he has buttock abscess and a vacuum dressing in place, culture is growing E. coli and Enterococcus faecalis and he has been on IV antibiotic ampicillin/sulbactam Infectious diseases following Urine eosinophil was negative Patient has increase urine output creatinine 2.5 give Lasix today He is not ready to be discharged because of multiple medical issues and wants to consider go down to rehab center like [facility] team to discuss discharge planning with him
[2018-04-14] MEDS: Sodium Hypochlorite 0.25% Top Sol 500 ML Bottle IRRIGATION SCH ×2 (18:34→21:11)
[2018-04-14] MEDS: Morphine Inj 4 MG/ML Vial IV.PUSH PRN (21:19)
[2018-04-15] MEDS: Ampicillin/Sulbactam Inj 1,500 MG in Sodium Chloride 0.9% Inj 100 ML IV.SIG SCH ×4 (01:33→20:51)
[2018-04-15] MEDS: Albumin Human 25% Inj 100 ML IV.SIG SCH ×2 (06:01→17:27)
[2018-04-15] MEDS: Sod Chloride 0.9% Inj 1,000 ML IV.CONT SCH ×3 (07:45→20:57)
[2018-04-15 07:57] LABS: Baso % (Auto) 0.4 % (0.0-2.0); Eos # (Auto) 0.1 th/mm3 (0.0-0.4); Eos % (Auto) 1.3 % (0.0-4.0); Hematocrit 28.7 % (39.0-51.0); Hemoglobin 9.6 gm/dL (13.0-17.0); Lymph # (Auto) 1.8 th/mm3 (1.0-4.8); Lymph % (Auto) 16.3 % (9.0-44.0); Mean Corpuscular HGB Conc 33.4 % (32.0-36.0); Mean Corpuscular Hemoglobin 30.2 pg (27.0-34.0); Mean Corpuscular Volume 90.3 fL (80.0-100.0); Mean Platelet Volume 6.8 fL (7.0-11.0); Mono # (Auto) 0.7 th/mm3 (0.0-0.9); Mono % (Auto) 5.9 % (0.0-8.0); Neut # (Auto) 8.5 th/mm3 (1.8-7.7); Neut % (Auto) 76.1 % (16.0-70.0); Platelet Count 255 th/mm3 (150-450); Red Blood Count 3.18 mil/mm3 (4.50-5.90); Red Cell Distribution Width 15.8 % (11.6-17.2); White Blood Count 11.1 th/mm3 (4.0-11.0)
[2018-04-15 08:27] LABS: Calcium 9.3 mg/dL (8.5-10.1); Carbon Dioxide 22.4 meq/L (21.0-32.0); Potassium 3.8 meq/L (3.5-5.1)
[2018-04-15] MEDS: Sodium Hypochlorite 0.25% Top Sol 500 ML Bottle IRRIGATION SCH ×2 (08:47→20:50)
[2018-04-15] MEDS: hydrALAZINE 10 MG Tablet PO SCH ×3 (08:47→17:27)
[2018-04-15] MEDS: Senna/Docusate Sodium 8.6/50 MG Tablet PO SCH ×2 (08:48→20:53)
[2018-04-15] MEDS: Calcium/Vitamin D 250/125 MG Tablet PO SCH ×2 (08:48→20:52)
[2018-04-15] MEDS: Vitamin B Complex/Vitamin C Tablet PO SCH (08:48)
[2018-04-15] MEDS: Tolterodine Tartrate LA 4 MG Capsule PO SCH (08:48)
[2018-04-15] MEDS: Ascorbic Acid 500 MG Tablet PO SCH (08:48)
[2018-04-15] MEDS: Allopurinol 300 MG Tablet PO SCH (08:48)
[2018-04-15] MEDS: amLODIPine 10 MG Tablet PO SCH (08:48)
[2018-04-15] MEDS: Acetaminophen 325 MG Tablet PO PRN (08:48)
[2018-04-15] MEDS: Heparin - SQ 10,000 UNITS/ML Vial SQ SCH ×2 (08:49→20:52)
--- NOTE | 2018-04-15 11:31 | P.PNIM ---
Subjective Interval history: Follow-up for infected decubitus ulcer, neurogenic bladder, YAYA. Patient is currently doing well. He complains of back pain. Denies any fever or chills. Physical Exam Vital signs: Last Vital Signs Temp 98.1 F 04/15/18 08:25 Pulse 70 04/15/18 08:25 Resp 20 04/15/18 08:25 BP 148/82 H 04/15/18 08:25 Pulse Ox 93 L 04/15/18 08:25 Intake & Output 04/13/18 04/14/18 04/15/18 04/16/18 06:59 06:59 06:59 06:59 Intake Total 1860 / 1860 3550 / 3550 1550 / 1550 1200 / 1200 Output Total 2175 / 2175 1875 / 1875 3800 / 3800 Balance -315 / -315 1675 / 1675 -2250 / -2250 1200 / 1200 Weight 110.7 kg 110.6 kg Narrative: GENERAL: Well-nourished, well-developed patient. SKIN: Warm and dry. HEAD: Normocephalic. EYES: No scleral icterus. No injection or drainage. NECK: Supple, trachea midline. No JVD or lymphadenopathy. CARDIOVASCULAR: Regular rate and rhythm without murmurs, gallops, or rubs. RESPIRATORY: Breath sounds equal bilaterally. No accessory muscle use. GASTROINTESTINAL: Abdomen soft, non-tender, nondistended. EXTREMITIES: Paraplegia 2+ edema, penile edema present NEUROLOGICAL: Awake, alert, and oriented x 3. Paraplegic. Urinary Catheter Management Straight: Cath placed during this visit: yes, but has since been removed by the nurse Insertion date: 04/09/18 Insertion time: 05:30 Removal date: 04/08/18 Removal time: 14:58 Indwelling Urethral Catheter: Cath placed during this visit: yes Urethral indwelling: No Insertion date: 04/12/18 Insertion time: 12:30 Results Labs CBC & Chem 7: 04/15/18 06:42 04/15/18 06:42 Procedures Procedures: 04/09/2018 Excisional debridement of the right ischial decubitus ulcer including bone. Insertion of wound Vac. (Plastic surgery). Assessment and Plan (1) Paraplegia: Code(s): G82.20 - Paraplegia, unspecified Status: Chronic (2) Decubitus ulcer, infected: Code(s): L89.90 - Pressure ulcer of unspecified site, unspecified stage; L08.9 - Local infection of the skin and subcutaneous tissue, unspecified Status: Acute Plan 73-year-old male who presents to the emergency room due to having chills which reports is typical for him when he has infection. Patient was recently hospitalized on 03/21/18 due to sepsis and was discharged on IV antibiotics. Patient is paraplegic and has neurogenic bladder. Self caths 5- 6 times per day. Chronic decubitus ulcer (follows with Dr. Sheikh). Reportedly drainage from ulcer has recently become more foul-smelling. Decubitus wound infection of the left ischium. Group D enterococci and e. coli. -Infectious disease following. Currently on Unasyn. -Plastic surgery following. Patient underwent excision and debridement of right ischial decubitus and wound VAC placement. -Pain control. Per ID, plan to treat as osteo. Wound VAC paperwork is done. Will need final plastic surgery as well as infectious disease recommendations. Patient can likely go on oral antibiotics Augmentin. Paraplegic Exacerbation of chronic pain related to paraplegia -morphine for pain. -specialty bed per wound care recs Neurogenic bladder Urinary retention Acute kidney injury -Creatinine continues to worsen 2.79 --> 2.91--> 2.59 --> 2.40. Nephrology following. -Stopped Gabapentin and Flexeril. Hypertension -Increased amlodipine to 10 mg daily. Continue clonidine as needed. Continue hydralazine. Obstructive sleep apnea -Continue to use home CPAP. Full code. heparin SQ for DVT prophylaxis. Progress Note: Quality VTE Deep Vein Thrombosis/Pulmonary Embolism Present on Admission: No _ (1) Decubitus ulcer, infected Qualifiers: Pressure injury stage: unspecified pressure injury stage Qualified Code(s): L89.90 - Pressure ulcer of unspecified site, unspecified stage; L08.9 - Local infection of the skin and subcutaneous tissue, unspecified
--- NOTE | 2018-04-15 18:07 | P.PNID ---
Subjective Remarks: Late entry. Patient seen around 2:30 PM. Notes reviewed. Patient developed acute kidney disease. Likely secondary to medication. He is awake and alert. His is concerned about the management after he leaves the hospital. Wound VAC is in place over the right ilium. No fever. Estimated GFR is 27. Patient has a Najera catheter in place. He states that he feels like he needs to straight cath. He he did straight catheterization for evacuation before the Najera was placed. 73-year-old white male who presented to the emergency department with an ischial wound and was noted to have shaking chills. The patient was supposed to follow up with the Wound Care as outpatient. He has already been following with Dr. Sheikh in the Wound Care Department for the wound. The patient has been recently treated for sepsis and UTI due to Escherichia coli. He was on IV Ceftriaxone as outpatient until 04/04/2018. He reports that he has had drainage from the left ischium where he has a chronic wound and that it was foul smelling. The wound was cultured while he was in the hospital and it grew E. coli, Proteus, and Staphylococcus aureus. This was sensitive to the ceftriaxone. Antibiotics: Unasyn Past Medical History: PAST MEDICAL HISTORY: Hypertension, gout, paraplegia, bladder incontinence, history of right hip surgery, history of back surgery. Allergies/Adverse Reactions: Allergies celecoxib Allergy (Severe, Verified 04/06/18 23:15) Hallucinations lisinopril Allergy (Severe, Verified 04/06/18 23:15) Hypotension Sulfa (Sulfonamide Antibiotics) Adverse Reaction (Intermediate, Verified 23:15) Diarrhea pregabalin Adverse Reaction (Unknown, Verified 04/06/18 23:15) Confusion Objective Vital Signs 04/14/18 20:00 04/15/18 00:00 04/15/18 00:37 Temperature 98.0 F 98 F Pulse Rate 68 67 Respiratory Rate 20 20 18 Blood Pressure 172/84 H 173/80 H Pulse Oximetry 95 98 04/15/18 04:00 04/15/18 06:27 04/15/18 07:00 Temperature 97.6 F Pulse Rate 65 Respiratory Rate 20 12 Blood Pressure 180/87 H 140/58 L Pulse Oximetry 96 04/15/18 08:25 04/15/18 10:30 04/15/18 16:20 Temperature 98.1 F 98.1 F 98.0 F Pulse Rate 70 68 72 Respiratory Rate 20 20 20 Blood Pressure 148/82 H 140/76 146/72 H Pulse Oximetry 93 L 93 L 94 L Intake & Output 04/14/18 04/15/18 04/15/18 18:59 06:59 18:59 Intake Total 1250 / 1250 300 / 300 1300 / 1300 Output Total 600 / 600 3200 / 3200 1600 / 1600 Balance 650 / 650 -2900 / -2900 -300 / -300 Intake: IV 1250 / 1250 300 / 300 1300 / 1300 NS Inj 1,000 ML @ 75 mls/hr IV. 950 / 950 1000 / 1000 CONT .[id number] [facility] Rx#:[id number] Flexbumin 25% Inj 100 ML @ 60 100 / 100 100 / 100 100 / 100 mls/hr IV.SIG Q12H [facility] Rx#: [id number] Unasyn Inj 1,500 MG In NS Inj 200 / 200 200 / 200 200 / 200 100 ML @ 200 mls/hr IV.SIG Q6H [facility] Rx#:[id number] Output: Urine Amount (Catheter) 600 / 600 3200 / 3200 1600 / 1600 Indwelling Urethral Catheter 600 / 600 3200 / 3200 1600 / 1600 Other: Mode Setting Right Heel Continuous Right Lower Buttocks Continuous Continuous Continuous Date of Last Bowel Movement 04/13/18 04/14/18 04/14/18 Lab - Hematology Results 04/14/18 04/15/18 06:44 06:42 WBC 10.9 11.1 H RBC 2.94 L 3.18 L Hgb 8.8 L 9.6 L Hct 25.8 L 28.7 L MCV 87.8 90.3 MCH 30.1 30.2 MCHC 34.3 33.4 RDW 15.3 15.8 Plt Count 235 255 MPV 6.7 L 6.8 L Neut % (Auto) 77.1 H 76.1 H Lymph % (Auto) 15.0 16.3 [place] % (Auto) 6.0 5.9 Eos % (Auto) 1.5 1.3 Baso % (Auto) 0.4 0.4 Neut # (Auto) 8.4 H 8.5 H Lymph # (Auto) 1.6 1.8 [place] # (Auto) 0.7 0.7 Eos # (Auto) 0.2 0.1 Baso # (Auto) 0.0 0.0 WBC Differential . . Differential Comment Auto diff final Auto diff final Lab - Chemistry Results 04/14/18 04/15/18 06:44 06:42 Sodium 148 H 148 H Potassium 3.7 3.8 Chloride 115 H 115 H Carbon Dioxide 23.6 22.4 Anion Gap 9 11 BUN 25 H 24 H Creatinine 2.59 H 2.40 H Estimated GFR 24 L 27 L Random Glucose 87 67 L Calcium 8.4 L 9.3 D Imaging: ITS Impressions Abdomen/Bladder Ultrasound 04/11/18 00:00 CONCLUSION: Kidneys are less than optimally visualized secondary to body habitus. Given this limitation, the kidneys have a normal appearance. Chest X-Ray 04/12/18 00:00 CONCLUSION: Under inflation with likely atelectasis at the lung bases. Otherwise, no definite acute abnormality is identified. Physical Exam: GENERAL: No acute distress. Awake and alert HEENT: The head is atraumatic. Extraocular muscles grossly intact. Pupils reactive to light. No icterus. Oropharynx mucosa moist. No visible lesions. NECK: Supple. No adenopathy. LUNGS: Clear decreased breath sounds HEART: Regular S1, S2, without murmurs. ABDOMEN: Obese, soft, no tenderness appreciated. EXTREMITIES: Wound vac at right ischial wound. SKIN: No diffuse rash. NEUROLOGIC: Paraplegic. PSYCHIATRIC: Calm and cooperative. Assessment and Plan - Plan IMPRESSION: Decubitus wound infection of the right ischium. Group D enterococci and e. coli. Fever and leukocytosis secondary to infection. Better Paraplegia. Acute renal failure RECOMMENDATIONS: Continue Unasyn IV today and plan on switching to p.o. ampicillin 500 mg twice daily and treat for 4 weeks and determine whether additional antibiotics is necessary. The renal function improves the ampicillin can be given every 8 hours of every 6 hours if there is full renal recovery. Depending on the status of the wound with wound care. suspect vanco IV as initial nephrotoxin and now Gabapentin causing cumulative toxicity. Discussed with Dr. Bedoya. Discussed with patient's would like to have further information upon management of the wound with the wound VAC. Dr. Bedoya to discuss with plastic surgery. Monitor renal function.
--- NOTE | 2018-04-15 19:49 | P.PNNP ---
Subjective Interval history: Stated two hospital did not communicated with [facility]entin and the 2 system do not communicate with each other, he wanted to get his records from [facility] and he was unhappy with their care and my records should be available to everybody, Physical Exam Vital signs: Vital Signs 04/14/18 20:00 04/15/18 00:00 04/15/18 00:37 Temperature 98.0 F 98 F Pulse Rate 68 67 Respiratory Rate 20 20 18 Blood Pressure 172/84 H 173/80 H Pulse Oximetry 95 98 04/15/18 04:00 04/15/18 06:27 04/15/18 07:00 Temperature 97.6 F Pulse Rate 65 Respiratory Rate 20 12 Blood Pressure 180/87 H 140/58 L Pulse Oximetry 96 04/15/18 08:25 04/15/18 10:30 04/15/18 16:20 Temperature 98.1 F 98.1 F 98.0 F Pulse Rate 70 68 72 Respiratory Rate 20 20 20 Blood Pressure 148/82 H 140/76 146/72 H Pulse Oximetry 93 L 93 L 94 L Intake & Output 04/15/18 04/15/18 04/16/18 06:59 18:59 06:59 Intake Total 300 / 300 1400 / 1400 Output Total 3200 / 3200 1600 / 1600 Balance -2900 / -2900 -200 / -200 Intake: IV 300 / 300 1400 / 1400 NS Inj 1,000 ML @ 75 mls/hr IV. 1000 / 1000 CONT .[id number] KENNEDY Rx#:[id number] Flexbumin 25% Inj 100 ML @ 60 100 / 100 200 / 200 mls/hr IV.SIG Q12H KENNEDY Rx#: [id number] Unasyn Inj 1,500 MG In NS Inj 200 / 200 200 / 200 100 ML @ 200 mls/hr IV.SIG Q6H KENNEDY Rx#:[id number] Output: Urine Amount (Catheter) 3200 / 3200 1600 / 1600 Indwelling Urethral Catheter 3200 / 3200 1600 / 1600 Other: Mode Setting Right Heel Continuous Right Lower Buttocks Continuous Continuous Date of Last Bowel Movement 04/14/18 04/14/18 Narrative: GENERAL: Well-nourished, well-developed patient. SKIN: Warm and dry. HEAD: Normocephalic. EYES: No scleral icterus. No injection or drainage. NECK: Supple, trachea midline. No JVD or lymphadenopathy. CARDIOVASCULAR: Regular rate and rhythm without murmurs, gallops, or rubs. RESPIRATORY: Breath sounds equal bilaterally. No accessory muscle use. GASTROINTESTINAL: Abdomen soft, non-tender, nondistended. EXTREMITIES: Paraplegia 2+ edema, penile edema present NEUROLOGICAL: . Paraplegic. - Urinary Catheter Management Straight Cath placed during this visit: yes, but has since been removed by the nurse Reason for continuing: Acute urinary retention Insertion date: 04/09/18 Insertion time: 05:30 Removal date: 04/08/18 Removal time: 14:58 Indwelling Urethral Catheter Cath placed during this visit: yes Urethral indwelling: No Reason for continuing: Hourly intake/output Insertion date: 04/12/18 Insertion time: 12:30 Assessment and Plan - Assessment (1) Acute renal failure Code(s): N17.9 - Acute kidney failure, unspecified Status: Acute (2) Paraplegia Code(s): G82.20 - Paraplegia, unspecified Status: Chronic (3) PNA (pneumonia) Code(s): J18.9 - Pneumonia, unspecified organism Status: Acute (4) UTI (urinary tract infection) Code(s): N39.0 - Urinary tract infection, site not specified Status: Acute (5) Decubitus ulcer, infected Code(s): L89.90 - Pressure ulcer of unspecified site, unspecified stage; L08.9 - Local infection of the skin and subcutaneous tissue, unspecified Status: Acute Qualifiers: Pressure injury stage: unspecified pressure injury stage Qualified Code(s) : L89.90 - Pressure ulcer of unspecified site, unspecified stage; L08.9 - Local infection of the skin and subcutaneous tissue, unspecified - Plan I discussed with him that he has redistribution of fluid because of recent infection, he has buttock abscess and a vacuum dressing in place, culture is growing E. coli and Enterococcus faecalis and he has been on IV antibiotic ampicillin/sulbactam Infectious diseases following Urine eosinophil was negative Patient has increase urine output creatinine 2.2 output increased He is not ready to be discharged because of multiple medical issues and wants to consider go down to rehab center like [facility] team to discuss discharge planning with him There is a lot of issues and as stated to spent more than half an hour trying to explain to him his medical condition he has a wound which is infected he has a Najera catheter to drain the urine as has urinary retention Creatinine is slowly declining But he remains unhappy with the care he received gets upset and angry I told him that explained to him acute renal failure is resolving With the care he is getting hydration and seems to be helping his kidney situation He then seem to focus on communication I try to explain HIPAA Law he signs each time he gets admitted prohibit to automatically releases record to the other facility Main issues remains infection and he is on ampicillin/sulbactam according to ID is has a long conversation With ID and discharge planning the remain reluctant to go to local rehabilitation and notes his daughter is trying to get him to [place]
[2018-04-16] MEDS: Ampicillin/Sulbactam Inj 1,500 MG in Sodium Chloride 0.9% Inj 100 ML IV.SIG SCH ×4 (02:03→20:46)
[2018-04-16] MEDS: Morphine Inj 4 MG/ML Vial IV.PUSH PRN ×3 (04:28→20:59)
[2018-04-16] MEDS: Sod Chloride 0.9% Inj 1,000 ML IV.CONT SCH ×4 (04:33→23:38)
[2018-04-16] MEDS: Albumin Human 25% Inj 100 ML IV.SIG SCH ×2 (05:50→17:19)
[2018-04-16] MEDS: amLODIPine 10 MG Tablet PO SCH (08:35)
[2018-04-16] MEDS: Tolterodine Tartrate LA 4 MG Capsule PO SCH (08:35)
[2018-04-16] MEDS: Calcium/Vitamin D 250/125 MG Tablet PO SCH ×2 (08:35→20:45)
[2018-04-16] MEDS: Vitamin B Complex/Vitamin C Tablet PO SCH (08:35)
[2018-04-16] MEDS: Allopurinol 300 MG Tablet PO SCH (08:35)
[2018-04-16] MEDS: hydrALAZINE 10 MG Tablet PO SCH ×3 (08:35→17:19)
[2018-04-16] MEDS: Senna/Docusate Sodium 8.6/50 MG Tablet PO SCH ×2 (08:35→23:37)
[2018-04-16] MEDS: Sodium Hypochlorite 0.25% Top Sol 500 ML Bottle IRRIGATION SCH ×2 (08:35→20:46)
[2018-04-16] MEDS: Ascorbic Acid 500 MG Tablet PO SCH (08:36)
[2018-04-16] MEDS: Heparin - SQ 10,000 UNITS/ML Vial SQ SCH ×2 (08:39→20:45)
--- NOTE | 2018-04-16 14:50 | P.PNNP ---
Subjective Interval history: Patient is awake propped up in bed increased urine output Physical Exam Vital signs: Vital Signs 04/15/18 16:20 04/15/18 20:00 04/16/18 00:04 Temperature 98.0 F 97.8 F 98.6 F Pulse Rate 72 71 72 Respiratory Rate 18 Blood Pressure 146/72 H 148/76 H 138/66 Pulse Oximetry 94 L 95 93 L 04/16/18 04:34 04/16/18 04:59 04/16/18 07:00 Temperature 97.6 F Pulse Rate 73 Respiratory Rate 12 Blood Pressure 154/82 H Pulse Oximetry 94 L 04/16/18 08:00 04/16/18 12:00 Temperature Pulse Rate Respiratory Rate Blood Pressure 160/78 H 160/76 H Pulse Oximetry Intake & Output 04/15/18 04/16/18 04/16/18 18:59 06:59 18:59 Intake Total 1400 / 1400 1539 / 1539 300 / 300 Output Total 1600 / 1600 1550 / 1550 900 / 900 Balance -200 / -200 -11 / -11 -600 / -600 Weight 116.743 kg Intake: IV 1400 / 1400 1539 / 1539 300 / 300 NS Inj 1,000 ML @ 75 mls/hr IV. 1000 / 1000 1339 / 1339 CONT .[id number] KENNEDY Rx#:[id number] Flexbumin 25% Inj 100 ML @ 60 200 / 200 100 / 100 mls/hr IV.SIG Q12H KENNEDY Rx#: [id number] Unasyn Inj 1,500 MG In NS Inj 200 / 200 200 / 200 200 / 200 100 ML @ 200 mls/hr IV.SIG Q6H KENNEDY Rx#:[id number] Output: Urine 1550 / 1550 Urine Amount (Catheter) 1600 / 1600 900 / 900 Indwelling Urethral Catheter 1600 / 1600 900 / 900 Other: Mode Setting Right Heel Continuous Continuous Right Lower Buttocks Continuous Continuous Continuous Date of Last Bowel Movement 04/14/18 04/14/18 04/14/18 Narrative: GENERAL: Well-nourished, well-developed patient. SKIN: Warm and dry. HEAD: Normocephalic. EYES: No scleral icterus. No injection or drainage. NECK: Supple, trachea midline. No JVD or lymphadenopathy. CARDIOVASCULAR: Regular rate and rhythm without murmurs, gallops, or rubs. RESPIRATORY: Breath sounds equal bilaterally. No accessory muscle use. GASTROINTESTINAL: Abdomen soft, non-tender, nondistended. EXTREMITIES: Paraplegia 2+ edema, penile edema present NEUROLOGICAL: . Paraplegic. - Urinary Catheter Management Straight Cath placed during this visit: yes, but has since been removed by the nurse Reason for continuing: Acute urinary retention Insertion date: 04/09/18 Insertion time: 05:30 Removal date: 04/08/18 Removal time: 14:58 Indwelling Urethral Catheter Cath placed during this visit: yes Urethral indwelling: No Reason for continuing: Hourly intake/output Insertion date: 04/12/18 Insertion time: 12:30 Assessment and Plan - Assessment (1) Acute renal failure Code(s): N17.9 - Acute kidney failure, unspecified Status: Acute (2) Paraplegia Code(s): G82.20 - Paraplegia, unspecified Status: Chronic (3) PNA (pneumonia) Code(s): J18.9 - Pneumonia, unspecified organism Status: Acute (4) UTI (urinary tract infection) Code(s): N39.0 - Urinary tract infection, site not specified Status: Acute (5) Decubitus ulcer, infected Code(s): L89.90 - Pressure ulcer of unspecified site, unspecified stage; L08.9 - Local infection of the skin and subcutaneous tissue, unspecified Status: Acute Qualifiers: Pressure injury stage: unspecified pressure injury stage Qualified Code(s) : L89.90 - Pressure ulcer of unspecified site, unspecified stage; L08.9 - Local infection of the skin and subcutaneous tissue, unspecified - Plan I discussed with him that he has redistribution of fluid because of recent infection, he has buttock abscess and a vacuum dressing in place, culture is growing E. coli and Enterococcus faecalis and he has been on IV antibiotic ampicillin/sulbactam Infectious diseases following Urine eosinophil was negative Patient has increase urine output creatinine 1.9 output increased Patient can be discharged from nephrology point of view his renal function has significantly improved discussed with Dr. Bedoya
--- NOTE | 2018-04-16 23:55 | P.PNIM ---
Subjective Interval history: Follow-up for infected decubitus ulcer, neurogenic bladder, YAYA. Patient is doing well. No acute concerns. No fever, chills. Physical Exam Vital signs: Last Vital Signs Temp 98.1 F 04/16/18 20:00 Pulse 93 H 04/16/18 20:00 Resp 20 04/16/18 20:00 BP 191/86 H 04/16/18 20:00 Pulse Ox 94 L 04/16/18 20:00 Intake & Output 04/14/18 04/15/18 04/16/18 04/17/18 06:59 06:59 06:59 06:59 Intake Total 3550 / 3550 1550 / 1550 2939 / 2939 1500 / 1500 Output Total 1875 / 1875 3800 / 3800 3150 / 3150 1700 / 1700 Balance 1675 / 1675 -2250 / -2250 -211 / -211 -200 / -200 Weight 110.6 kg 116.743 kg Narrative: GENERAL: Well-nourished, well-developed patient. SKIN: Warm and dry. HEAD: Normocephalic. EYES: No scleral icterus. No injection or drainage. NECK: Supple, trachea midline. No JVD or lymphadenopathy. CARDIOVASCULAR: Regular rate and rhythm without murmurs, gallops, or rubs. RESPIRATORY: Breath sounds equal bilaterally. No accessory muscle use. GASTROINTESTINAL: Abdomen soft, non-tender, nondistended. EXTREMITIES: Paraplegia 2+ edema, penile edema present NEUROLOGICAL: . Paraplegic. Urinary Catheter Management Straight: Cath placed during this visit: yes, but has since been removed by the nurse Insertion date: 04/09/18 Insertion time: 05:30 Removal date: 04/08/18 Removal time: 14:58 Indwelling Urethral Catheter: Cath placed during this visit: yes Urethral indwelling: No Insertion date: 04/12/18 Insertion time: 12:30 Results Labs CBC & Chem 7: 04/15/18 06:42 04/16/18 06:32 Procedures Procedures: 04/09/2018 Excisional debridement of the right ischial decubitus ulcer including bone. Insertion of wound Vac. (Plastic surgery). Assessment and Plan (1) Acute renal failure: Code(s): N17.9 - Acute kidney failure, unspecified Status: Acute (2) Paraplegia: Code(s): G82.20 - Paraplegia, unspecified Status: Chronic (3) PNA (pneumonia): Code(s): J18.9 - Pneumonia, unspecified organism Status: Acute (4) UTI (urinary tract infection): Code(s): N39.0 - Urinary tract infection, site not specified Status: Acute (5) Decubitus ulcer, infected: Code(s): L89.90 - Pressure ulcer of unspecified site, unspecified stage; L08.9 - Local infection of the skin and subcutaneous tissue, unspecified Status: Acute Plan 73-year-old male who presents to the emergency room due to having chills which reports is typical for him when he has infection. Patient was recently hospitalized on 03/21/18 due to sepsis and was discharged on IV antibiotics. Patient is paraplegic and has neurogenic bladder. Self caths 5- 6 times per day. Chronic decubitus ulcer (follows with Dr. Sheikh). Reportedly drainage from ulcer has recently become more foul-smelling. Decubitus wound infection of the left ischium. Group D enterococci and e. coli. -Infectious disease following. Currently on Unasyn. -Plastic surgery following. Patient underwent excision and debridement of right ischial decubitus and wound VAC placement. -Pain control. Per ID, plan to treat as osteo. Wound VAC paperwork is done. -Case management is working to arrange transportation to [place]. -Will continue Ampicillin on discharge. Paraplegic Exacerbation of chronic pain related to paraplegia -morphine for pain. -specialty bed per wound care recs Neurogenic bladder Urinary retention Acute kidney injury -Creatinine continues to worsen 2.79 --> 2.91--> 2.59 --> 2.40. Nephrology following. -Stopped Gabapentin and Flexeril. Hypertension -Increased amlodipine to 10 mg daily. Continue clonidine as needed. Continue hydralazine. Obstructive sleep apnea -Continue to use home CPAP. Full code. heparin SQ for DVT prophylaxis. Progress Note: Quality VTE Deep Vein Thrombosis/Pulmonary Embolism Present on Admission: No _ (1) UTI (urinary tract infection) Qualifiers: Encounter type: Hematuria presence: Indwelling urinary catheter type: Urinary tract infection type: (2) Decubitus ulcer, infected Qualifiers: Pressure injury stage: unspecified pressure injury stage Qualified Code(s): L89.90 - Pressure ulcer of unspecified site, unspecified stage; L08.9 - Local infection of the skin and subcutaneous tissue, unspecified (3) Acute renal failure Qualifiers: Acute renal failure type: (4) PNA (pneumonia) Qualifiers: Aspiration pneumonia type: Laterality: Lung location: Pneumonia type:
[2018-04-17] MEDS: Morphine Inj 4 MG/ML Vial IV.PUSH PRN ×2 (02:15→17:27)
[2018-04-17] MEDS: Ampicillin/Sulbactam Inj 1,500 MG in Sodium Chloride 0.9% Inj 100 ML IV.SIG SCH ×4 (02:15→21:00)
[2018-04-17] MEDS: Albumin Human 25% Inj 100 ML IV.SIG SCH ×2 (06:29→17:26)
[2018-04-17] MEDS: Sodium Hypochlorite 0.25% Top Sol 500 ML Bottle IRRIGATION SCH ×2 (08:03→22:57)
[2018-04-17] MEDS: Sod Chloride 0.9% Inj 1,000 ML IV.CONT SCH ×2 (10:15→11:47)
[2018-04-17] MEDS: hydrALAZINE 10 MG Tablet PO SCH ×3 (10:20→17:43)
[2018-04-17] MEDS: Senna/Docusate Sodium 8.6/50 MG Tablet PO SCH ×2 (10:21→22:59)
[2018-04-17] MEDS: Allopurinol 300 MG Tablet PO SCH (10:21)
[2018-04-17] MEDS: Tolterodine Tartrate LA 4 MG Capsule PO SCH (10:21)
[2018-04-17] MEDS: Heparin - SQ 10,000 UNITS/ML Vial SQ SCH ×2 (10:22→21:00)
[2018-04-17] MEDS: amLODIPine 10 MG Tablet PO SCH (10:22)
[2018-04-17] MEDS: Vitamin B Complex/Vitamin C Tablet PO SCH (10:23)
[2018-04-17] MEDS: Calcium/Vitamin D 250/125 MG Tablet PO SCH ×2 (10:24→23:00)
[2018-04-17] MEDS: Ascorbic Acid 500 MG Tablet PO SCH (10:25)
--- NOTE | 2018-04-17 12:37 | P.DIET ---
Nutritional Evaluation Type of nutrition evaluation: follow-up Nutrition consult regarding: Diet Evaluation Nutrition screening: Pressure Injury Screening comments: 04/08 MDC for wound Subjective Subjective Comments: Ate 75% of breakfast today. Objective - Diagnosis bacteremia, decubitius, failed output tx - Objective Spinal Cord Impairment: Paraplegia (5-10 lbs) Weight Subtracted: 10 lbs % IBW: 166 (IBW = 132lb) Body Weight Used for Calculations: IBW Energy Needs - Lower Range (kCal/kg): 25 Energy Needs - Upper Range (kCal/kg): 30 Lower Limit kCal/kg (kCals): 1,500 Upper Limit kCal/kg (kCals): 1,800 Lower Limit Protein Factor (Grams per Kg): 1.2 Upper Limit Protein Factor (Grams per Kg): 1.5 Lower Protein Needs (Protein): 72 Upper Protein Needs (Protein): 90 Dietitian Reviewed in Medical Record: Current diet, Curent medications, Intake & Output, Labs, Medical history Diet Order: regular Oral Diet Intake Amount: Good 75-90% Wound Care Note: R ischium: stage IV, tunneling/necrotic R heel: DTI Objective Comments: PMH: HTN, paraplegia Assessment Assessment: MDC for wound received on 04/08. Pt has been consuming 75-100% for most meals. Per wound note, pt has a stage IV, tunneling pressure ulcer on right ischium and right heel DTI. Recommend Fazal 1-pkt BID as PO supplement for wound healing. Pt s/p debridement of R ischial decubitus ulcer and insertion of wound vac. Continue to monitor PO and supplement intake. Labs reviewed, dietitian following. Recommendations: 1. RD to recommend Fazal 1-pkt BID as PO supplement for wound healing 2. Continue to monitor PO and supplement intake 3. Dietitian following Dietitian to Monitor: Lab values, Supplement acceptance, Intake & Output, Diet tolerance, PO Intake, Wound/skin status, Medical course
--- NOTE | 2018-04-17 22:20 | P.PNIM ---
Subjective Interval history: Follow-up for infected decubitus ulcer, neurogenic bladder, YAYA. Patient is doing well. He inquires about Gabapentin. I told him that we held it due to acute kidney injury. He also inquires about timing of his medical flight to [place]. Case management is currently working on that. Physical Exam Vital signs: Last Vital Signs Temp 97.8 F 04/17/18 20:00 Pulse 82 04/17/18 20:00 Resp 18 04/17/18 20:00 BP 160/79 H 04/17/18 20:00 Pulse Ox 94 L 04/17/18 20:00 Intake & Output 04/15/18 04/16/18 04/17/18 04/18/18 06:59 06:59 06:59 06:59 Intake Total 1550 / 1550 2939 / 2939 1650 / 1650 1760 / 1760 Output Total 3800 / 3800 3150 / 3150 2300 / 2300 1999 / 1999 Balance -2250 / -2250 -211 / -211 -650 / -650 -240 / -240 Weight 116.743 kg 116.3 kg GENERAL: Alert, oriented x 3, NAD. SKIN: Warm and dry. HEAD: Normocephalic. EYES: No scleral icterus. No injection or drainage. NECK: Supple, trachea midline. No JVD or lymphadenopathy. CARDIOVASCULAR: Regular rate and rhythm without murmurs, gallops, or rubs. RESPIRATORY: Breath sounds equal bilaterally. No accessory muscle use. GASTROINTESTINAL: Abdomen soft, non-tender, nondistended. MUSCULOSKELETAL: No cyanosis, or edema. Paraplegic. BACK: Nontender without obvious deformity. No CVA tenderness. Urinary Catheter Management Straight: Cath placed during this visit: yes, but has since been removed by the nurse Insertion date: 04/09/18 Insertion time: 05:30 Removal date: 04/08/18 Removal time: 14:58 Indwelling Urethral Catheter: Cath placed during this visit: yes Urethral indwelling: No Insertion date: 04/12/18 Insertion time: 12:30 Results Labs CBC & Chem 7: 04/15/18 06:42 04/16/18 06:32 Procedures Procedures: 04/09/2018 Excisional debridement of the right ischial decubitus ulcer including bone. Insertion of wound Vac. (Plastic surgery). Assessment and Plan (1) Acute renal failure: Code(s): N17.9 - Acute kidney failure, unspecified Status: Acute (2) Paraplegia: Code(s): G82.20 - Paraplegia, unspecified Status: Chronic (3) PNA (pneumonia): Code(s): J18.9 - Pneumonia, unspecified organism Status: Acute (4) UTI (urinary tract infection): Code(s): N39.0 - Urinary tract infection, site not specified Status: Acute (5) Decubitus ulcer, infected: Code(s): L89.90 - Pressure ulcer of unspecified site, unspecified stage; L08.9 - Local infection of the skin and subcutaneous tissue, unspecified Status: Acute Plan 73-year-old male who presents to the emergency room due to having chills which reports is typical for him when he has infection. Patient was recently hospitalized on 03/21/18 due to sepsis and was discharged on IV antibiotics. Patient is paraplegic and has neurogenic bladder. Self caths 5- 6 times per day. Chronic decubitus ulcer (follows with Dr. Sheikh). Reportedly drainage from ulcer has recently become more foul-smelling. Decubitus wound infection of the left ischium. Group D enterococci and e. coli. -Infectious disease following. Currently on Unasyn, will switch to Ampicillin upon discharge. -Plastic surgery following. Patient underwent excision and debridement of right ischial decubitus and wound VAC placement. -Pain control. Per ID, plan to treat as osteo. Wound VAC paperwork is done. Paraplegic Exacerbation of chronic pain related to paraplegia -morphine for pain. -specialty bed per wound care recs Neurogenic bladder Urinary retention Acute kidney injury -Creatinine continues to worsen 2.79 --> 2.91--> 2.59 --> 2.40 --> 1.97. Nephrology following. -Will start Gabapentin 200mg TID tomorrow AM. Check BMP in the AM. Hypertension -Increased amlodipine to 10 mg daily. Continue clonidine as needed. Continue hydralazine. Obstructive sleep apnea -Continue to use home CPAP. Full code. heparin SQ for DVT prophylaxis. Progress Note: Quality VTE Deep Vein Thrombosis/Pulmonary Embolism Present on Admission: No _ (1) Acute renal failure Qualifiers: Acute renal failure type: (2) PNA (pneumonia) Qualifiers: Pneumonia type: Aspiration pneumonia type: Laterality: Lung location: (3) UTI (urinary tract infection) Qualifiers: Urinary tract infection type: Hematuria presence: Indwelling urinary catheter type: Encounter type: (4) Decubitus ulcer, infected Qualifiers: Pressure injury stage: unspecified pressure injury stage Qualified Code(s): L89.90 - Pressure ulcer of unspecified site, unspecified stage; L08.9 - Local infection of the skin and subcutaneous tissue, unspecified
[2018-04-18] MEDS: Morphine Inj 4 MG/ML Vial IV.PUSH PRN ×2 (00:31→20:59)
[2018-04-18] MEDS: Sod Chloride 0.9% Inj 1,000 ML IV.CONT SCH (00:32)
[2018-04-18] MEDS: Ampicillin/Sulbactam Inj 1,500 MG in Sodium Chloride 0.9% Inj 100 ML IV.SIG SCH ×4 (02:38→20:58)
[2018-04-18] MEDS: Albumin Human 25% Inj 100 ML IV.SIG SCH ×2 (05:44→19:15)
[2018-04-18 06:35] LABS: Calcium 8.6 mg/dL (8.5-10.1); Carbon Dioxide 26.5 meq/L (21.0-32.0)
[2018-04-18 06:37] LABS: Potassium 2.8 meq/L (3.5-5.1)
[2018-04-18] MEDS: Sodium Hypochlorite 0.25% Top Sol 500 ML Bottle IRRIGATION SCH ×2 (08:00→20:58)
[2018-04-18] MEDS: hydrALAZINE 10 MG Tablet PO SCH ×3 (09:18→18:22)
[2018-04-18] MEDS: Allopurinol 300 MG Tablet PO SCH (09:18)
[2018-04-18] MEDS: Calcium/Vitamin D 250/125 MG Tablet PO SCH ×2 (09:18→20:57)
[2018-04-18] MEDS: Ascorbic Acid 500 MG Tablet PO SCH (09:20)
[2018-04-18] MEDS: Gabapentin 100 MG Capsule PO SCH ×3 (09:22→18:22)
[2018-04-18] MEDS: amLODIPine 10 MG Tablet PO SCH (09:23)
[2018-04-18] MEDS: Tolterodine Tartrate LA 4 MG Capsule PO SCH (09:23)
[2018-04-18] MEDS: Senna/Docusate Sodium 8.6/50 MG Tablet PO SCH ×2 (09:23→20:56)
[2018-04-18] MEDS: Vitamin B Complex/Vitamin C Tablet PO SCH (09:24)
[2018-04-18] MEDS: Heparin - SQ 10,000 UNITS/ML Vial SQ SCH ×3 (09:32→21:00)
[2018-04-18] MEDS ORDERED: KCL 20 mEq/Dextrose 5% Inj 1,000 ML IV.CONT SCH (12:00)
--- NOTE | 2018-04-18 15:00 | P.PNIM ---
Subjective Interval history: Follow-up for infected decubitus ulcer, neurogenic bladder, YAYA. Patient is doing well. No fever, chills. He is glad to have Gabapentin back on his medication list. at bedside - probably flight to [place] on Saturday04/22/2018. Physical Exam Vital signs: Last Vital Signs Temp 97.9 F 04/18/18 11:58 Pulse 78 04/18/18 11:58 Resp 18 04/18/18 11:58 BP 160/78 H 04/18/18 11:58 Pulse Ox 93 L 04/18/18 11:58 Intake & Output 04/16/18 04/17/18 04/18/18 04/19/18 06:59 06:59 06:59 06:59 Intake Total 2939 / 2939 1650 / 1650 2960 / 2960 1440 / 1440 Output Total 3150 / 3150 2300 / 2300 3200 / 3200 1200 / 1200 Balance -211 / -211 -650 / -650 -240 / -240 240 / 240 Weight 116.743 kg 116.3 kg 107.7 kg Narrative: GENERAL: Well-nourished, well-developed patient. SKIN: Warm and dry. HEAD: Normocephalic. EYES: No scleral icterus. No injection or drainage. NECK: Supple, trachea midline. No JVD or lymphadenopathy. CARDIOVASCULAR: Regular rate and rhythm without murmurs, gallops, or rubs. RESPIRATORY: Breath sounds equal bilaterally. No accessory muscle use. GASTROINTESTINAL: Abdomen soft, non-tender, nondistended. EXTREMITIES: Paraplegia 2+ edema, penile edema present NEUROLOGICAL: . Paraplegic. Urinary Catheter Management Straight: Cath placed during this visit: yes, but has since been removed by the nurse Insertion date: 04/09/18 Insertion time: 05:30 Removal date: 04/08/18 Removal time: 14:58 Indwelling Urethral Catheter: Cath placed during this visit: yes Urethral indwelling: No Insertion date: 04/12/18 Insertion time: 12:30 Results Labs CBC & Chem 7: 04/15/18 06:42 04/18/18 05:03 Procedures Procedures: 04/09/2018 Excisional debridement of the right ischial decubitus ulcer including bone. Insertion of wound Vac. (Plastic surgery). Assessment and Plan (1) Acute renal failure: Code(s): N17.9 - Acute kidney failure, unspecified Status: Acute (2) Paraplegia: Code(s): G82.20 - Paraplegia, unspecified Status: Chronic (3) PNA (pneumonia): Code(s): J18.9 - Pneumonia, unspecified organism Status: Acute (4) UTI (urinary tract infection): Code(s): N39.0 - Urinary tract infection, site not specified Status: Acute (5) Decubitus ulcer, infected: Code(s): L89.90 - Pressure ulcer of unspecified site, unspecified stage; L08.9 - Local infection of the skin and subcutaneous tissue, unspecified Status: Acute Plan 73-year-old male who presents to the emergency room due to having chills which reports is typical for him when he has infection. Patient was recently hospitalized on 03/21/18 due to sepsis and was discharged on IV antibiotics. Patient is paraplegic and has neurogenic bladder. Self caths 5- 6 times per day. Chronic decubitus ulcer (follows with Dr. Sheikh). Reportedly drainage from ulcer has recently become more foul-smelling. Decubitus wound infection of the left ischium. Group D enterococci and e. coli. -Infectious disease following. Currently on Unasyn. -Plastic surgery following. Patient underwent excision and debridement of right ischial decubitus and wound VAC placement. -Pain control. Per ID, plan to treat as osteo. Wound VAC paperwork is done. -Probable discharge and flight to [place] on Saturday04/22/2018 9AM. -Will continue Ampicillin on discharge. Paraplegic Exacerbation of chronic pain related to paraplegia -morphine for pain. -specialty bed per wound care recs Neurogenic bladder Urinary retention Acute kidney injury -Creatinine continues to worsen 2.79 --> 2.91 ==> 1.49 Nephrology following. -Started low dose Gabapentin, 200mg TID. Hypertension -Increased amlodipine to 10 mg daily. Continue clonidine as needed. Continue hydralazine. Obstructive sleep apnea -Continue to use home CPAP. Full code. heparin SQ for DVT prophylaxis. Progress Note: Quality VTE Deep Vein Thrombosis/Pulmonary Embolism Present on Admission: No _ (1) UTI (urinary tract infection) Qualifiers: Encounter type: Hematuria presence: Indwelling urinary catheter type: Urinary tract infection type: (2) Decubitus ulcer, infected Qualifiers: Pressure injury stage: unspecified pressure injury stage Qualified Code(s): L89.90 - Pressure ulcer of unspecified site, unspecified stage; L08.9 - Local infection of the skin and subcutaneous tissue, unspecified (3) Acute renal failure Qualifiers: Acute renal failure type: (4) PNA (pneumonia) Qualifiers: Aspiration pneumonia type: Laterality: Lung location: Pneumonia type:
[2018-04-18] MEDS: Acetaminophen 325 MG Tablet PO PRN (20:56)
[2018-04-19] MEDS: Ampicillin/Sulbactam Inj 1,500 MG in Sodium Chloride 0.9% Inj 100 ML IV.SIG SCH ×4 (03:01→21:06)
[2018-04-19] MEDS: Sodium Hypochlorite 0.25% Top Sol 500 ML Bottle IRRIGATION SCH ×2 (08:58→20:09)
[2018-04-19] MEDS: Ascorbic Acid 500 MG Tablet PO SCH (08:59)
[2018-04-19] MEDS: Heparin - SQ 10,000 UNITS/ML Vial SQ SCH ×2 (08:59→20:09)
[2018-04-19] MEDS: Allopurinol 300 MG Tablet PO SCH (09:00)
[2018-04-19] MEDS: Senna/Docusate Sodium 8.6/50 MG Tablet PO SCH ×2 (09:01→21:12)
[2018-04-19] MEDS: Gabapentin 100 MG Capsule PO SCH ×3 (09:01→17:37)
[2018-04-19] MEDS: amLODIPine 10 MG Tablet PO SCH (09:01)
[2018-04-19] MEDS: Calcium/Vitamin D 250/125 MG Tablet PO SCH ×2 (09:01→21:12)
[2018-04-19] MEDS: hydrALAZINE 10 MG Tablet PO SCH ×3 (09:01→17:37)
[2018-04-19] MEDS: Tolterodine Tartrate LA 4 MG Capsule PO SCH (09:02)
[2018-04-19] MEDS: Vitamin B Complex/Vitamin C Tablet PO SCH (09:03)
--- NOTE | 2018-04-19 10:18 | P.PNIM ---
Subjective Interval history: Follow-up for infected decubitus ulcer, neurogenic bladder, YAYA. Patient is doing well. No fever, chills. no acute concerns. Physical Exam Vital signs: Last Vital Signs Temp 97.5 F L 04/19/18 07:24 Pulse 59 L 04/19/18 07:24 Resp 18 04/19/18 08:51 BP 152/78 H 04/19/18 07:24 Pulse Ox 96 04/19/18 07:24 Intake & Output 04/17/18 04/18/18 04/19/18 04/20/18 06:59 06:59 06:59 06:59 Intake Total 1650 / 1650 2960 / 2960 3140 / 3140 100 / 100 Output Total 2300 / 2300 3200 / 3200 1900 / 1900 Balance -650 / -650 -240 / -240 1240 / 1240 100 / 100 Weight 116.3 kg 107.7 kg Narrative: GENERAL: Well-nourished, well-developed patient. SKIN: Warm and dry. HEAD: Normocephalic. EYES: No scleral icterus. No injection or drainage. NECK: Supple, trachea midline. No JVD or lymphadenopathy. CARDIOVASCULAR: Regular rate and rhythm without murmurs, gallops, or rubs. RESPIRATORY: Breath sounds equal bilaterally. No accessory muscle use. GASTROINTESTINAL: Abdomen soft, non-tender, nondistended. EXTREMITIES: Paraplegia 2+ edema, penile edema present NEUROLOGICAL: . Paraplegic. Urinary Catheter Management Straight: Cath placed during this visit: yes, but has since been removed by the nurse Insertion date: 04/09/18 Insertion time: 05:30 Removal date: 04/08/18 Removal time: 14:58 Indwelling Urethral Catheter: Cath placed during this visit: yes Urethral indwelling: No Insertion date: 04/12/18 Insertion time: 12:30 Results Labs CBC & Chem 7: 04/15/18 06:42 04/18/18 05:03 Procedures Procedures: 04/09/2018 Excisional debridement of the right ischial decubitus ulcer including bone. Insertion of wound Vac. (Plastic surgery). Assessment and Plan (1) Acute renal failure: Code(s): N17.9 - Acute kidney failure, unspecified Status: Acute (2) Paraplegia: Code(s): G82.20 - Paraplegia, unspecified Status: Chronic (3) PNA (pneumonia): Code(s): J18.9 - Pneumonia, unspecified organism Status: Acute (4) UTI (urinary tract infection): Code(s): N39.0 - Urinary tract infection, site not specified Status: Acute (5) Decubitus ulcer, infected: Code(s): L89.90 - Pressure ulcer of unspecified site, unspecified stage; L08.9 - Local infection of the skin and subcutaneous tissue, unspecified Status: Acute Plan 73-year-old male who presents to the emergency room due to having chills which reports is typical for him when he has infection. Patient was recently hospitalized on 03/21/18 due to sepsis and was discharged on IV antibiotics. Patient is paraplegic and has neurogenic bladder. Self caths 5- 6 times per day. Chronic decubitus ulcer (follows with Dr. Sheikh). Reportedly drainage from ulcer has recently become more foul-smelling. Decubitus wound infection of the left ischium. Group D enterococci and e. coli. -Infectious disease following. Currently on Unasyn. -Plastic surgery following. Patient underwent excision and debridement of right ischial decubitus and wound VAC placement. -Pain control. Per ID, plan to treat as osteo. Wound VAC paperwork is done. -Probable discharge and flight to [place] on Saturday04/22/2018 9AM. -Will continue Ampicillin on discharge. Paraplegic Exacerbation of chronic pain related to paraplegia -morphine for pain. -specialty bed per wound care recs Neurogenic bladder Urinary retention Acute kidney injury Hypokalemia K+ 2.8 -Creatinine continues to worsen 2.79 --> 2.91 ==> 1.49 Nephrology following. -Started low dose Gabapentin, 200mg TID. -will get BMP today. Hypertension -Increased amlodipine to 10 mg daily. Continue clonidine as needed. Continue hydralazine. Obstructive sleep apnea -Continue to use home CPAP. Full code. heparin SQ for DVT prophylaxis. Discharge plan: Tentative plan to discharge on 04/22/2018 AM. Progress Note: Quality VTE Deep Vein Thrombosis/Pulmonary Embolism Present on Admission: No _ (1) UTI (urinary tract infection) Qualifiers: Encounter type: Hematuria presence: Indwelling urinary catheter type: Urinary tract infection type: (2) Decubitus ulcer, infected Qualifiers: Pressure injury stage: unspecified pressure injury stage Qualified Code(s): L89.90 - Pressure ulcer of unspecified site, unspecified stage; L08.9 - Local infection of the skin and subcutaneous tissue, unspecified (3) Acute renal failure Qualifiers: Acute renal failure type: (4) PNA (pneumonia) Qualifiers: Aspiration pneumonia type: Laterality: Lung location: Pneumonia type:
[2018-04-19 14:53] LABS: Calcium 9.2 mg/dL (8.5-10.1); Carbon Dioxide 27.3 meq/L (21.0-32.0)
[2018-04-19 15:06] LABS: Potassium 2.7 meq/L (3.5-5.1)
[2018-04-19] MEDS: Potassium Chlor 20 mEq Premix 20 MEQ/100 ML PIGGYBACK IV.SIG SCH ×4 (15:36→22:06)
[2018-04-19] MEDS: Albumin Human 25% Inj 100 ML IV.SIG SCH ×2 (19:40→19:41)
[2018-04-19] MEDS: Morphine Inj 4 MG/ML Vial IV.PUSH PRN (22:04)
[2018-04-20] MEDS: Ampicillin/Sulbactam Inj 1,500 MG in Sodium Chloride 0.9% Inj 100 ML IV.SIG SCH ×4 (02:34→21:09)
[2018-04-20] MEDS: Albumin Human 25% Inj 100 ML IV.SIG SCH ×2 (06:12→18:14)
[2018-04-20] MEDS: hydrALAZINE 10 MG Tablet PO SCH ×3 (08:59→18:13)
[2018-04-20] MEDS: Ascorbic Acid 500 MG Tablet PO SCH (09:00)
[2018-04-20] MEDS: Gabapentin 100 MG Capsule PO SCH ×3 (09:00→18:13)
[2018-04-20] MEDS: Allopurinol 300 MG Tablet PO SCH (09:00)
[2018-04-20] MEDS: Vitamin B Complex/Vitamin C Tablet PO SCH (09:01)
[2018-04-20] MEDS: Senna/Docusate Sodium 8.6/50 MG Tablet PO SCH ×2 (09:01→21:08)
[2018-04-20] MEDS: amLODIPine 10 MG Tablet PO SCH (09:01)
[2018-04-20] MEDS: Tolterodine Tartrate LA 4 MG Capsule PO SCH (09:01)
[2018-04-20] MEDS: Sodium Hypochlorite 0.25% Top Sol 500 ML Bottle IRRIGATION SCH ×2 (09:02→21:05)
[2018-04-20] MEDS: Heparin - SQ 10,000 UNITS/ML Vial SQ SCH ×2 (09:02→21:09)
[2018-04-20] MEDS: Calcium/Vitamin D 250/125 MG Tablet PO SCH ×2 (09:06→21:08)
[2018-04-20 09:57] LABS: Potassium 3.3 meq/L (3.5-5.1)
--- NOTE | 2018-04-20 12:53 | P.PNIM ---
Subjective Interval history: Follow-up for infected decubitus ulcer, neurogenic bladder, YAYA. Patient is currently doing well. No acute concerns. Remains afebrile. Physical Exam Vital signs: Last Vital Signs Temp 98 F 04/20/18 11:55 Pulse 74 04/20/18 11:55 Resp 18 04/20/18 11:55 BP 140/76 04/20/18 11:55 Pulse Ox 94 L 04/20/18 11:55 Intake & Output 04/18/18 04/19/18 04/20/18 04/21/18 06:59 06:59 06:59 06:59 Intake Total 2960 / 2960 3140 / 3140 2760 / 2760 200 / 200 Output Total 3200 / 3200 1900 / 1900 3150 / 3150 Balance -240 / -240 1240 / 1240 -390 / -390 200 / 200 Weight 107.7 kg 107.7 kg Narrative: GENERAL: Well-nourished, well-developed patient. SKIN: Warm and dry. HEAD: Normocephalic. EYES: No scleral icterus. No injection or drainage. NECK: Supple, trachea midline. No JVD or lymphadenopathy. CARDIOVASCULAR: Regular rate and rhythm without murmurs, gallops, or rubs. RESPIRATORY: Breath sounds equal bilaterally. No accessory muscle use. GASTROINTESTINAL: Abdomen soft, non-tender, nondistended. EXTREMITIES: Paraplegia 2+ edema, penile edema present NEUROLOGICAL: . Paraplegic. Urinary Catheter Management Straight: Cath placed during this visit: yes, but has since been removed by the nurse Insertion date: 04/09/18 Insertion time: 05:30 Removal date: 04/08/18 Removal time: 14:58 Indwelling Urethral Catheter: Cath placed during this visit: yes Urethral indwelling: No Insertion date: 04/13/18 Insertion time: 12:30 Results Labs CBC & Chem 7: 04/15/18 06:42 04/20/18 08:42 Procedures Procedures: 04/09/2018 Excisional debridement of the right ischial decubitus ulcer including bone. Insertion of wound Vac. (Plastic surgery). Assessment and Plan (1) Acute renal failure: Code(s): N17.9 - Acute kidney failure, unspecified Status: Acute (2) Paraplegia: Code(s): G82.20 - Paraplegia, unspecified Status: Chronic (3) PNA (pneumonia): Code(s): J18.9 - Pneumonia, unspecified organism Status: Acute (4) UTI (urinary tract infection): Code(s): N39.0 - Urinary tract infection, site not specified Status: Acute (5) Decubitus ulcer, infected: Code(s): L89.90 - Pressure ulcer of unspecified site, unspecified stage; L08.9 - Local infection of the skin and subcutaneous tissue, unspecified Status: Acute Plan 73-year-old male who presents to the emergency room due to having chills which reports is typical for him when he has infection. Patient was recently hospitalized on 03/21/18 due to sepsis and was discharged on IV antibiotics. Patient is paraplegic and has neurogenic bladder. Self caths 5- 6 times per day. Chronic decubitus ulcer (follows with Dr. Sheikh). Reportedly drainage from ulcer has recently become more foul-smelling. Decubitus wound infection of the left ischium. Group D enterococci and e. coli. -Infectious disease following. Currently on Unasyn. -Plastic surgery following. Patient underwent excision and debridement of right ischial decubitus and wound VAC placement. -Pain control. Per ID, plan to treat as osteo. Wound VAC paperwork is done. -Probable discharge and flight to [place] on Saturday04/22/2018 9AM. -Will continue Ampicillin on discharge. Paraplegic Exacerbation of chronic pain related to paraplegia -morphine for pain. -specialty bed per wound care recs Neurogenic bladder Urinary retention Acute kidney injury Hypokalemia resolved. Hypomagnesemia -Creatinine continues to worsen 2.79 --> 2.91 ==> 1.35 Nephrology following. -Started low dose Gabapentin, 200mg TID. -Will replace with IV Mag Sulfate. Hypertension -Increased amlodipine to 10 mg daily. Continue clonidine as needed. Continue hydralazine. Obstructive sleep apnea -Continue to use home CPAP. Full code. heparin SQ for DVT prophylaxis. Discharge plan: Tentative plan to discharge on 04/22/2018 AM. Progress Note: Quality VTE Deep Vein Thrombosis/Pulmonary Embolism Present on Admission: No _ (1) Acute renal failure Qualifiers: Acute renal failure type: (2) PNA (pneumonia) Qualifiers: Pneumonia type: Aspiration pneumonia type: Laterality: Lung location: (3) UTI (urinary tract infection) Qualifiers: Urinary tract infection type: Hematuria presence: Indwelling urinary catheter type: Encounter type: (4) Decubitus ulcer, infected Qualifiers: Pressure injury stage: unspecified pressure injury stage Qualified Code(s): L89.90 - Pressure ulcer of unspecified site, unspecified stage; L08.9 - Local infection of the skin and subcutaneous tissue, unspecified
[2018-04-21] MEDS: Ampicillin/Sulbactam Inj 1,500 MG in Sodium Chloride 0.9% Inj 100 ML IV.SIG SCH ×4 (04:46→20:45)
[2018-04-21] MEDS: Albumin Human 25% Inj 100 ML IV.SIG SCH ×2 (05:57→17:42)
[2018-04-21] MEDS: Heparin - SQ 10,000 UNITS/ML Vial SQ SCH ×2 (08:14→20:46)
[2018-04-21] MEDS: hydrALAZINE 10 MG Tablet PO SCH ×3 (08:14→17:43)
[2018-04-21] MEDS: Gabapentin 100 MG Capsule PO SCH ×3 (08:14→17:43)
[2018-04-21] MEDS: Vitamin B Complex/Vitamin C Tablet PO SCH (08:14)
[2018-04-21] MEDS: Calcium/Vitamin D 250/125 MG Tablet PO SCH ×2 (08:15→20:46)
[2018-04-21] MEDS: Senna/Docusate Sodium 8.6/50 MG Tablet PO SCH ×2 (08:15→20:46)
[2018-04-21] MEDS: Ascorbic Acid 500 MG Tablet PO SCH (08:15)
[2018-04-21] MEDS: Allopurinol 300 MG Tablet PO SCH (08:15)
[2018-04-21] MEDS: Tolterodine Tartrate LA 4 MG Capsule PO SCH (08:15)
[2018-04-21] MEDS: amLODIPine 10 MG Tablet PO SCH (08:15)
[2018-04-21] MEDS: Sodium Hypochlorite 0.25% Top Sol 500 ML Bottle IRRIGATION SCH ×2 (08:16→20:44)
--- NOTE | 2018-04-21 12:22 | P.PNIM ---
Subjective Interval history: Follow-up for infected decubitus ulcer, neurogenic bladder, YAYA. Wojciech is resting in bed. Afebrile. Physical Exam Vital signs: Last Vital Signs Temp 97.2 F L 04/21/18 04:00 Pulse 68 04/21/18 04:00 Resp 18 04/21/18 04:00 BP 162/80 H 04/21/18 08:00 Pulse Ox 94 L 04/21/18 04:00 Intake & Output 04/19/18 04/20/18 04/21/18 04/22/18 06:59 06:59 06:59 06:59 Intake Total 3140 / 3140 2760 / 2760 1700 / 1700 300 / 300 Output Total 1900 / 1900 3150 / 3150 2750 / 2750 Balance 1240 / 1240 -390 / -390 -1050 / -1050 300 / 300 Weight 107.7 kg 107.7 kg Narrative: GENERAL: Well-nourished, well-developed patient. SKIN: Warm and dry. HEAD: Normocephalic. EYES: No scleral icterus. No injection or drainage. NECK: Supple, trachea midline. No JVD or lymphadenopathy. CARDIOVASCULAR: Regular rate and rhythm without murmurs, gallops, or rubs. RESPIRATORY: Breath sounds equal bilaterally. No accessory muscle use. GASTROINTESTINAL: Abdomen soft, non-tender, nondistended. EXTREMITIES: Paraplegia 2+ edema, penile edema present NEUROLOGICAL: . Paraplegic. Urinary Catheter Management Straight: Cath placed during this visit: yes, but has since been removed by the nurse Insertion date: 04/09/18 Insertion time: 05:30 Removal date: 04/08/18 Removal time: 14:58 Indwelling Urethral Catheter: Cath placed during this visit: yes Urethral indwelling: No Insertion date: 04/13/18 Insertion time: 12:30 Results Labs CBC & Chem 7: 04/15/18 06:42 04/20/18 08:42 Procedures Procedures: 04/09/2018 Excisional debridement of the right ischial decubitus ulcer including bone. Insertion of wound Vac. (Plastic surgery). Assessment and Plan (1) Acute renal failure: Code(s): N17.9 - Acute kidney failure, unspecified Status: Acute (2) Paraplegia: Code(s): G82.20 - Paraplegia, unspecified Status: Chronic (3) PNA (pneumonia): Code(s): J18.9 - Pneumonia, unspecified organism Status: Acute (4) UTI (urinary tract infection): Code(s): N39.0 - Urinary tract infection, site not specified Status: Acute (5) Decubitus ulcer, infected: Code(s): L89.90 - Pressure ulcer of unspecified site, unspecified stage; L08.9 - Local infection of the skin and subcutaneous tissue, unspecified Status: Acute Plan 73-year-old male who presents to the emergency room due to having chills which reports is typical for him when he has infection. Patient was recently hospitalized on 03/21/18 due to sepsis and was discharged on IV antibiotics. Patient is paraplegic and has neurogenic bladder. Self caths 5- 6 times per day. Chronic decubitus ulcer (follows with Dr. Sheikh). Reportedly drainage from ulcer has recently become more foul-smelling. Decubitus wound infection of the left ischium. Group D enterococci and e. coli. -Infectious disease following. Currently on Unasyn. -Plastic surgery following. Patient underwent excision and debridement of right ischial decubitus and wound VAC placement. -Pain control. Per ID, plan to treat as osteo. Wound VAC paperwork is done. -Probable discharge and flight to [place] on Saturday04/22/2018 9AM. -Will continue Ampicillin on discharge. Paraplegic Exacerbation of chronic pain related to paraplegia -morphine for pain. -specialty bed per wound care recs Neurogenic bladder Urinary retention Acute kidney injury Hypokalemia resolved. Hypomagnesemia -Creatinine continues to worsen 2.79 --> 2.91 ==> 1.35 Nephrology following. -Started low dose Gabapentin, 200mg TID. -Replaced Magnesium with IV Mag Sulfate. -Will check BMP, Mg level today. Hypertension -Increased amlodipine to 10 mg daily. Continue clonidine as needed. Continue hydralazine. Obstructive sleep apnea -Continue to use home CPAP. Full code. heparin SQ for DVT prophylaxis. Discharge plan: Tentative plan to discharge on 04/22/2018 AM. Progress Note: Quality VTE Deep Vein Thrombosis/Pulmonary Embolism Present on Admission: No _ (1) Acute renal failure Qualifiers: Acute renal failure type: (2) PNA (pneumonia) Qualifiers: Pneumonia type: Aspiration pneumonia type: Laterality: Lung location: (3) UTI (urinary tract infection) Qualifiers: Urinary tract infection type: Hematuria presence: Indwelling urinary catheter type: Encounter type: (4) Decubitus ulcer, infected Qualifiers: Pressure injury stage: unspecified pressure injury stage Qualified Code(s): L89.90 - Pressure ulcer of unspecified site, unspecified stage; L08.9 - Local infection of the skin and subcutaneous tissue, unspecified
[2018-04-21 14:30] LABS: Calcium 9.3 mg/dL (8.5-10.1); Carbon Dioxide 25.2 meq/L (21.0-32.0); Magnesium 1.8 mg/dL (1.5-2.5); Potassium 3.3 meq/L (3.5-5.1)
[2018-04-21 20:52] VITALS: RESP 20
[2018-04-22 01:32] VITALS: O2SAT 94
[2018-04-22] MEDS: Ampicillin/Sulbactam Inj 1,500 MG in Sodium Chloride 0.9% Inj 100 ML IV.SIG SCH (01:45)
[2018-04-22 05:24] VITALS: BP 164/68; PULSE 78; TEMP 98.1
[2018-04-22] MEDS: Albumin Human 25% Inj 100 ML IV.SIG SCH (05:55)
--- NOTE | 2018-04-22 17:28 | P.DS ---
DS: Providers Date of admission: 04/07/18 05:14 Primary care physician: UNKNOWN Consults: 04/07/18 05:12 Consult to Infectious Diseases Routine Consulting Provider: Santy Prasad Reason for Consultation: Decubitus Wound, Failed Outpt Tx CONSULT FOR AM Notified:: Service Spoke with:: gio Date Notified:: 04/07/18 Time Notified:: 06:13 Ordering Provider: RENE 04/07/18 08:58 Consult to Infectious Diseases Routine Consulting Provider: Santy Prasad Preferred Senior Research Analyst:: Santy Prasad Patient known to:: Santy Prasad Reason for Consultation: for continuity of care. Patient known to you recently discharge on IV abx. Notified:: Service Spoke with:: Meghan Date Notified:: 04/07/18 Time Notified:: 09:03 Ordering Provider: JESUS ALBERTO 04/07/18 15:21 Consult to Plastic Surgery Routine Consulting Provider: Tri Sr Reason for Consultation: chronic wound; poor healing Notified:: Office Spoke with:: CHARLETTE Date Notified:: 04/07/18 Time Notified:: 15:24 Ordering Provider: KRISSY 04/08/18 16:08 Consult to Rehab Medicine Routine Consulting Provider: Kelsi Tony Preferred Senior Research Analyst:: Kelsi Tony Reason for Consultation: wound; paraplegic Notified:: Service Spoke with:: Melissa Date Notified:: 04/08/18 Time Notified:: 16:23 Ordering Provider: KRISSY 04/12/18 12:11 Consult to Nephrology Routine Consulting Provider: Ena Hdez Does the patient have a Natural Resources Extension Educator who follows them?: No Preferred Nephrology Senior Research Analyst:: [employer] [facility] Reason for Consultation: Creatinine jumped from normal to 2.79. Notified:: Service Spoke with:: GWEN Date Notified:: 04/12/18 Time Notified:: 12:18 Ordering Provider: LIZ 04/15/18 11:27 HUB Only Consult Order Routine Consulting Provider: Aliza Degroot Brief History from admission: Patient is a 73-year-old male who presents to the emergency room due to having chills which reports is typical for him when he has infection. Patient was recently hospitalized on 03/21/18 due to sepsis and was discharged on IV antibiotics. Patient is paraplegic and has neurogenic bladder. Self caths 5-6 times per day. Chronic decubitus ulcer (follows with Dr. Sheikh). Reportedly drainage from ulcer has recently become more foul-smelling. Patient's primary complaint today is pain in his left thigh from spasms. This is not new. He reports that recently his gabapentin was increased in dose to help control the spasm. He denies any chest pain or shortness of breath. No further chills. No nausea vomiting or diarrhea. He is a somewhat difficult historian. DS: Diagnosis Discharge Diagnosis (1) Acute renal failure: Status: Acute (2) Paraplegia: Status: Chronic (3) PNA (pneumonia): Status: Acute (4) UTI (urinary tract infection): Status: Acute (5) Decubitus ulcer, infected: Status: Acute DS: Summary 73-year-old male who presents to the emergency room due to having chills which reports is typical for him when he has infection. Patient was recently hospitalized on 03/21/18 due to sepsis and was discharged on IV antibiotics. Patient is paraplegic and has neurogenic bladder. Self caths 5- 6 times per day. Chronic decubitus ulcer (follows with Dr. Sheikh). Reportedly drainage from ulcer has recently become more foul-smelling. Decubitus wound infection of the left ischium. Group D enterococci and e. coli. -Infectious disease following. Currently on Unasyn. -Plastic surgery following. Patient underwent excision and debridement of right ischial decubitus and wound VAC placement. -Pain control. Per ID, plan to treat as osteo. Wound VAC paperwork is done. -Probable discharge and flight to [place] on Saturday04/22/2018 9AM. -Will continue Ampicillin on discharge. Since renal function has recovered, we will continue Amoxicillin every 6 hours. Paraplegic Exacerbation of chronic pain related to paraplegia -morphine for pain. -specialty bed per wound care recs Neurogenic bladder Urinary retention Acute kidney injury Hypokalemia resolved. Hypomagnesemia -Creatinine continues to worsen 2.79 --> 2.91 ==> 1.08 Nephrology following. -Started low dose Gabapentin, 200mg TID. -Replaced Magnesium with IV Mag Sulfate. Hypertension -Increased amlodipine to 10 mg daily. Continue clonidine as needed. Continue hydralazine. Obstructive sleep apnea -Continue to use home CPAP. Full code. heparin SQ for DVT prophylaxis. Time Spent with Patient Total time spent providing and/or coordinating discharge services: Less than 30 minutes Quality: VTE Deep Vein Thrombosis/Pulmonary Embolism Present on Admission: No Exam Narrative Exam Narrative: GENERAL: Well-nourished, well-developed patient. SKIN: Warm and dry. HEAD: Normocephalic. EYES: No scleral icterus. No injection or drainage. NECK: Supple, trachea midline. No JVD or lymphadenopathy. CARDIOVASCULAR: Regular rate and rhythm without murmurs, gallops, or rubs. RESPIRATORY: Breath sounds equal bilaterally. No accessory muscle use. GASTROINTESTINAL: Abdomen soft, non-tender, nondistended. EXTREMITIES: Paraplegia 2+ edema, penile edema present NEUROLOGICAL: . Paraplegic. Results Procedures completed during hospitalization: 04/09/2018 Excisional debridement of the right ischial decubitus ulcer including bone. Insertion of wound Vac. (Plastic surgery). Impressions ITS Impressions Abdomen/Bladder Ultrasound 04/11/18 00:00 CONCLUSION: Kidneys are less than optimally visualized secondary to body habitus. Given this limitation, the kidneys have a normal appearance. Chest X-Ray 04/12/18 00:00 CONCLUSION: Under inflation with likely atelectasis at the lung bases. Otherwise, no definite acute abnormality is identified. Discharge Plan Discharge Disposition Patient Disposition: W/Home Health Service Discharge Condition Condition: Fair Discharge Order Discharge Orders: Discharge Order (Routine); Ordered 04/22/18 Ordered By: Ruth Bedoya Discharge Details Anticipated Discharge Date: 04/22/18 Discharge Comment: Okay to discharge patient in the AM on 04/22/2018. Physicians Team Primary Care Provider: UNKNOWN, Attending Provider: Ruth Bedoya Other Providers: Santy Prasad ; Tri Sr ; Kelsi Tony ; Ena Hdez ; Abigail Chapin,Aliza Rxs /Orders / Referrals /Forms Prescriptions: New hydralazine 10 mg Tablet 10 mg PO TID Qty: 90 RF: 3 clonidine HCl [Catapres] 0.1 mg Tablet 0.1 mg PO Q6H PRN (Reason: BP > 180 systolic) Qty: 20 RF: 0 amlodipine [Norvasc] 10 mg Tablet 10 mg PO DAILY Qty: 30 RF: 3 ampicillin 500 mg capsule 500 mg PO Q6H Qty: 84 RF: 0 Continue gentamicin 0.1 % Cream 1 applic TOPICAL DAILY PRN (Reason: Wound Care) RF: 0 collagenase clostridium histo. [Santyl] 250 unit/gram Ointment 1 applic TOPICAL DAILY PRN (Reason: Wound Care) RF: 0 oxybutynin chloride 10 mg Tablet Extended Release 24hr 10 mg PO DAILY RF: 0 oxybutynin chloride 5 mg Tablet 10 mg PO BID RF: 0 cholecalciferol (vitamin D3) [Vitamin D3] 400 unit Capsule 400 unit PO BID RF: 0 sennosides [Senokot] 8.6 mg Tablet 8.6 mg PO BID PRN (Reason: Constipation) RF: 0 ascorbic acid (vitamin C) [Vitamin C] 1,000 mg Tablet 2 g PO DAILY RF: 0 chlorpheniramine maleate 2 mg/5 mL Syrup 2 mg PO BID PRN (Reason: Allergy Symptoms) RF: 0 nitroglycerin 0.4 mg Tablet, Sublingual 0.4 mg SUBLINGUAL Q5-15M PRN (Reason: Chest Pain) RF: 0 docusate sodium [Colace] 100 mg Capsule 100 mg PO BID PRN (Reason: Constipation) RF: 0 aspirin 81 mg Tablet,Chewable 81 mg PO DAILY RF: 0 zinc 50 mg Tablet 50 mg PO QID RF: 0 multivitamin Capsule 1 cap PO QAM RF: 0 vitamin B complex Capsule 1 cap PO DAILY RF: 0 calcium carbonate-vitamin D3 [Calcium 500 + D] 500 mg(1,250mg) -200 unit Tablet 1 tab PO BID RF: 0 omega 6-hay-ldh-fish oil [Fish Oil] 1,000 mg (120 mg-180 mg) Capsule 2,000 mg PO DAILY RF: 0 docusate sodium [Enemeez] 283 mg/5 mL Enema 283 mg IN DAILY PRN (Reason: Constipation) RF: 0 lactobacillus combination no.4 [Probiotic] 3 billion cell Capsule 3,000 mmu cells PO DAILY RF: 0 Discontinued gabapentin 600 mg Tablet 600 mg PO TID RF: 0 amlodipine 5 mg Tablet 5 mg PO DAILY RF: 0 olmesartan-hydrochlorothiazide 40-25 mg Tablet 1 tab PO DAILY RF: 0 gabapentin 300 mg Capsule 600 mg PO TID RF: 0 allopurinol 300 mg Tablet 300 mg PO DAILY RF: 0 cranberry fruit concentrate [cranberry] 450 mg Tablet 450 mg PO DAILY RF: 0 cinnamon bark [Cinnamon] 500 mg Capsule 500 mg PO DAILY RF: 0 naproxen sodium [Aleve] 220 mg Capsule 220 mg PO BID PRN (Reason: Pain) RF: 0 d-mannose Powder 500 mg PO BID RF: 0 Ambulatory Orders / Order Sets / DME: Hospital Bed - Electric (1 each) (Routine) Location: Determined by Patient Ordered By: Ruth Bedoya Referrals: UNKNOWN, [Primary Care Provider] - See Instructions Discharge Instructions Patient Printed Instructions: Ampicillin (By mouth), Hydralazine (By mouth), Clonidine/Chlorthalidone (By mouth), Amlodipine (By mouth), Viral Pneumonia (GEN ), Urinary Tract Infection in Men (GEN), How to Prevent Pressure Injuries (GEN) , Sepsis (GEN), Debridement (DC) Status ED Status: Left Department Discharge Information Discharge Date/Time: 04/22/18 08:22
--- NOTE | 2018-04-30 14:19 | P.PNREH ---
Subjective Interval history: Late entry for 04/18/18: Patient awake and alert. at bedside. Patient's confusion has significantly improved. No pain complaints noted. Patient is participating in rehab therapies. He is also exercising while in bed. Reports that he was able to sit on edge of bed with the assistance of therapist and denies any dizziness or lightheadedness. Discharge plans are in place for patient to return to his home in [place]. is working with case management for arrangement of flights and ongoing care. Review of Systems Cardiovascular: Denies chest pain Respiratory: Denies shortness of breath Exam - Physical Examination General: No acute distress, Other (Awake and alert; answers questions appropriately and follows commands well) Date of Last Bowel Movement: 04/21/18 Musculoskeletal: ROM (Tone is increased in the lower extremities but range of motion is within functional limits) Psychiatric: Cooperative, Appropriate mood & affect - Neurologic Orientation: oriented to: Self, Situation Neurologic: Speech (Intelligible) Motor: Right Upper Extremity (4+-5/5), Left Upper Extremity (4+-5/5) Exam Comments: VAC in place Assessment and Plan (1) Paraplegia Status: Chronic Code(s): G82.20 - Paraplegia, unspecified (2) Sepsis Status: Acute Code(s): A41.9 - Sepsis, unspecified organism (3) Decubitus ulcer, infected Status: Acute Code(s): L89.90 - Pressure ulcer of unspecified site, unspecified stage; L08.9 - Local infection of the skin and subcutaneous tissue, unspecified Qualifiers: Pressure injury stage: unspecified pressure injury stage Qualified Code(s) : L89.90 - Pressure ulcer of unspecified site, unspecified stage; L08.9 - Local infection of the skin and subcutaneous tissue, unspecified - Plan Assessment: 1. Spinal cord injury with spastic paraplegia 2. Right ischial decubitus ulcer status post debridement with VAC placement Recommendations: 1. PT providing range of motion and mobilization. Patient is now maximal assist of 2 for bed mobility and up to sitting edge of bed for 15 minutes with contact-guard assist to maintain sitting balance 2. OT addressing ADLs and now max assist for dressing, min assist for grooming and set up for feeding. Patient has been provided with upper extremity strengthening exercises 3. Continue straight cath q 6 hours to maintain volumes <400 cc. If above 400 cc then cath q 4 hours 4 . Continue bowel program with suppository q od if no BM 5. Continue to turn and reposition q 2 hours and monitor skin carefully for additional breakdown 6. Discussed discharge planning with patient's and flight to being arranged for patient to return to his home in [place]. Patient has been in contact with his case picker in [place]. Ongoing home health is to be arranged including wound care for maintenance of VAC. We will follow-up in my outpatient clinic when patient returns to his home here in [place]
== END 2018-04-22 08:22 ==
LOC: NEPC 22:45 → NEDA 04-07 05:14 → NEPFCDU 04-07 07:10 → N07 04-09 10:16 → N05 04-09 15:05
PROVIDERS: ADMIT Hospitalist; ATTEND Hospitalist
DX: E66.9 Obesity, unspecified; K59.00 Constipation, unspecified; J18.9 Pneumonia, unspecified organism; N39.0 Urinary tract infection, site not specified; M10.9 Gout, unspecified; L89.614 Pressure ulcer of right heel, stage 4; N31.9 Neuromuscular dysfunction of bladder, unspecified; W18.11XA Fall from or off toilet without subsequent striking against object, initial encounter; F41.9 Anxiety disorder, unspecified; I10 Essential (primary) hypertension; Y93.89 Activity, other specified; Z87.891 Personal history of nicotine dependence; K59.2 Neurogenic bowel, not elsewhere classified; G82.20 Paraplegia, unspecified; Z88.8 Allergy status to other drugs, medicaments and biological substances; Y92.009 Unspecified place in unspecified non-institutional (private) residence as the place of occurrence of the external cause; L89.329 Pressure ulcer of left buttock, unspecified stage; G93.40 Encephalopathy, unspecified; L89.319 Pressure ulcer of right buttock, unspecified stage; A41.9 Sepsis, unspecified organism; Z79.899 Other long term (current) drug therapy; G47.33 Obstructive sleep apnea (adult) (pediatric); Z88.2 Allergy status to sulfonamides; E87.6 Hypokalemia; G89.29 Other chronic pain; N17.9 Acute kidney failure, unspecified; N48.89 Other specified disorders of penis; B96.20 Unspecified Escherichia coli [E. coli] as the cause of diseases classified elsewhere; Z79.82 Long term (current) use of aspirin; Z99.81 Dependence on supplemental oxygen; Z68.41 Body mass index [BMI] 40.0-44.9, adult; T83.511A Infection and inflammatory reaction due to indwelling urethral catheter, initial encounter